=== PATIENT | female | born 1930 | race African-American/Black ===

== ENCOUNTER 2017-06-14 18:06 | Emergency (ER) | payer MEDICARE, MEDICAID ==
[2017-06-14 20:02] LABS: ABSOLUTE EOSINOPHILS # (AUTO) 0.1 10^3/uL (0.0-0.6); ABSOLUTE LYMPHOCYTES (AUTO) 1.4 10^3/uL (0.5-4.7); ABSOLUTE MONOCYTES (AUTO) 0.5 10^3/uL (0.1-1.4); ABSOLUTE NEUT (AUTO) 3.7 10^3/uL (1.7-8.2); BASOPHILS % (AUTO) 0.5 % (0-2); HEMATOCRIT 43.3 % (36.0-47.0); LYMPHOCYTES % (AUTO) 25.4 % (13-45); MEAN CORPUSCULAR HEMOGLOBIN 31.3 pg (27.0-33.4); MEAN CORPUSCULAR HGB CONC 34.6 g/dL (32.0-36.0); MEAN CORPUSCULAR VOLUME 90 fl (80-97); PLATELET COUNT 350 10^3/uL (150-450); RED BLOOD COUNT 4.79 10^6/uL (3.72-5.28); RED CELL DISTRIBUTION WIDTH 13.1 % (11.5-14.0); SEGMENTED NEUTROPHILS % (AUTO) 64.1 % (42-78); TOTAL CELLS COUNTED % (AUTO) 100 %; WHITE BLOOD COUNT 5.7 10^3/uL (4.0-10.5)
[2017-06-14] MEDS ORDERED: DOXYCYCLINE HYCLATE 100 MG TABLET PO ONE (20:25)
--- NOTE | 2017-06-14 20:27 | ER Document Report ---
ED General - General Chief Complaint: Cough Stated Complaint: COUGH Time Seen by Provider: 06/14/17 19:17 Information source: Relative Cannot obtain history due to: Dementia Notes: Patient is an 86-year-old female who presents with familial concerns about a possible left lower lobe pneumonia. Family reports over the past 1 week the patient has had extensive nasal congestion, rhinorrhea and cough. The family demanded a chest x-ray today and this was performed. It was found to note a possible left lower lobe pneumonia. The patient was started on azithromycin for the family was unconvinced that the facility was correctly evaluating the patient so they requested she be transported to the emergency department. No additional history can be obtained as the patient is nonverbal and unable to cooperate with history taking. TRAVEL OUTSIDE OF THE [place] IN LAST 30 DAYS: No - Related Data Allergies/Adverse Reactions: Sulfa (Sulfonamide Antibiotics) Allergy (Severe, Verified 04/11/16 18:16) tongue levofloxacin [From Levaquin] Allergy (Verified 04/11/16 18:16) nickel [Nickel] Allergy (Verified 04/11/16 18:16) Past Medical History - General Information source: Patient Cannot obtain history due to: Dementia - Social History Smoking Status: Never Smoker Frequency of alcohol use: None Drug Abuse: None Lives with: [facility] Family History: CAD, Malignancy - Gastric cancer--father and brother Patient has suicidal ideation: No Patient has homicidal ideation: No - Past Medical History Cardiac Medical History: Reports: Hx Hypercholesterolemia Denies: Hx Coronary Artery Disease, Hx Heart Attack - possible [place] 01/2011, Hx Hypertension Pulmonary Medical History: Denies: Hx Asthma, Hx Bronchitis, Hx COPD, Hx Pneumonia Neurological Medical History: Denies: Hx Cerebrovascular Accident, Hx Seizures Renal/ Medical History: Denies: Hx Peritoneal Dialysis Musculoskeltal Medical History: Reports Hx Arthritis Psychiatric Medical History: Reports: Hx Dementia, Hx Depression Traumatic Medical History: Reports: Hx Fractures - rods in L ankle Past Surgical History: Reports: Hx Hysterectomy, Hx Orthopedic Surgery - L knee and L ankle. Denies: Hx Pacemaker - Immunizations Hx Diphtheria, Pertussis, Tetanus Vaccination: Yes Review of Systems - Review of Systems -: Yes ROS unobtainable due to patient's medical condition Physical Exam - Vital signs Vitals: Resp Pulse Ox 15 94 06/14/17 18:35 06/14/17 18:35 Interpretation: Normal Notes: PHYSICAL EXAMINATION: GENERAL: Chronically ill in appearance, frail, in no acute distress HEAD: Atraumatic, normocephalic. EYES: sclera anicteric, conjunctiva are normal. ENT: nares patent, oropharynx clear without exudates. Moderately dry mucous membranes. NECK: Normal range of motion, supple without lymphadenopathy LUNGS: Breath sounds clear to auscultation bilaterally and equal. No wheezes rales or rhonchi. HEART: Regular rate and rhythm without murmurs ABDOMEN: Soft, G-tube in place. EXTREMITIES: Contracted in the bilateral upper and lower extremities NEUROLOGICAL: Does not follow commands. At baseline per family PSYCH: Nonverbal SKIN: Warm, Dry, normal turgor, no rashes or lesions noted. Course - Re-evaluation Re-evalutation: 06/14/17 20:25 Presentation of a chronically ill, nonverbal, nonambulatory, G-tube dependent patient who presents with concerns of a left lower lobe pneumonia. Family states there were concerned about the care of the patient was receiving at the [facility] facility and wanted her brought here for a reevaluation. The patient was apparently started on azithromycin today. This will not provide adequate coverage for a community-acquired pneumonia in the setting of a fpc. She is allergic to levofloxacin. Will start on doxycycline in place of azithromycin to provide better coverage although I do not see an acute indication for hospitalization. Patient is not significantly tachypneic, no hypoxia, and no chronic kidney disease. Awaiting basic metabolic panel results normal plan for likely discharge - Vital Signs Vital signs: Temp Pulse Resp BP Pulse Ox 98.4 F 22 H 101/69 96 06/14/17 19:03 06/14/17 18:57 06/14/17 19:01 06/14/17 19:01 - Laboratory Result Diagrams: 06/14/17 19:00 06/14/17 20:45 Laboratory results interpreted by me: 06/14/17 20:45 Sodium 135.1 L Chloride 95 L Creatinine 0.46 L Glucose 120 H - Diagnostic Test Radiology reviewed: Image reviewed, Reports reviewed Radiology results interpreted by me: 06/14/17 20:59 Chest x-ray: Small infiltrate in the left base - EKG Interpretation by Me Additional EKG results interpreted by me: 06/14/17 20:59 Sinus tachycardia. Rate 101. No ST elevations or depressions. QTC is 488. Discharge - Discharge Clinical Impression: Left lower lobe pneumonia Qualifiers: Pneumonia type: due to unspecified organism Qualified Code(s): J18.1 - Lobar pneumonia, unspecified organism Condition: Good Disposition: HOME-SNF (ED ONLY) Additional Instructions: Your family member has been diagnosed with a left lower lobe pneumonia. Please start on doxycycline as prescribed. Complete until finished. Return for any additional concerns including increased difficulty breathing, persistent vomiting, low oxygen readings, or any other symptoms that are worrisome to you. Prescriptions: Doxycycline Hyclate 100 mg PO BID #20 capsule
--- NOTE | 2017-06-14 20:37 | RADIOLOGY REPORT (SQ) ---
EXAM DESCRIPTION: CHEST SINGLE VIEW COMPLETED DATE/TIME: 06/14/2017 8:01 pm REASON FOR STUDY: sob COMPARISON: 04/11/2016 and 04/17/2011 EXAM PARAMETERS: NUMBER OF VIEWS: One view. TECHNIQUE: Single frontal radiographic view of the chest acquired. RADIATION DOSE: NA LIMITATIONS: None. FINDINGS: LUNGS AND PLEURA: No opacities, masses or pneumothorax. No pleural effusion. MEDIASTINUM AND HILAR STRUCTURES: Stable contour appearance, noting right superior mediastinal fullne ss. HEART AND VASCULAR STRUCTURES: Heart normal in size. Normal vasculature. BONES: No acute findings. HARDWARE: None in the chest. OTHER: No other significant finding. IMPRESSION: Stable radiographic appearance of the chest. Right superior mediastinal fullness is unc hanged dating back to 2010, and may represent substernal thyroid. No acute findings. TECHNICAL DOCUMENTATION: JOB ID: [id number] [employer]- All Rights Reserved
[2017-06-14 21:24] LABS: ANION GAP 11 (5-19); BLOOD UREA NITROGEN 16 mg/dL (7-20); CALCIUM 9.9 mg/dL (8.4-10.2); CARBON DIOXIDE 29 mmol/L (22-30); CHLORIDE 95 mmol/L (98-107); GLUCOSE 120 mg/dL (75-110); POTASSIUM 4.3 mmol/L (3.6-5.0); SODIUM 135.1 mmol/L (137-145)
[2017-06-15 04:42] VITALS: BP 109/61
--- NOTE | 2017-06-15 11:00 | EKG REPORT ---
SEVERITY:- ABNORMAL ECG - SINUS TACHYCARDIA LEFT AXIS DEVIATION BORDERLINE T WAVE ABNORMALITIES BORDERLINE PROLONGED QT INTERVAL : Confirmed by: Seema Castellanos MD 15-Jun-2017 10:59:22
== END 2017-06-14 23:15 ==
LOC: ER 18:06
DX: J18.1 Lobar pneumonia, unspecified organism (principal); R05 Cough; R09.81 Nasal congestion; J34.89 Other specified disorders of nose and nasal sinuses; R00.0 Tachycardia, unspecified; F03.90 Unspecified dementia, unspecified severity, without behavioral disturbance, psychotic disturbance, mood disturbance, and anxiety; Z88.2 Allergy status to sulfonamides; Z88.1 Allergy status to other antibiotic agents; Z91.048 Other nonmedicinal substance allergy status; Z93.1 Gastrostomy status
CPT/HCPCS: 93005; 99285; 36415; 85025; 80048; 71010; 93010; A9270

== ENCOUNTER 2017-08-19 13:44 | Emergency (ER) | payer MEDICARE, MEDICAID ==
--- NOTE | 2017-08-19 14:46 | ER Document Report ---
ED General - General Stated Complaint: WEAKNESS Time Seen by Provider: 08/19/17 14:10 Mode of Arrival: Medic Information source: Emergency Med Personnel Notes: 86-year-old woman with a history of Parkinson's disease, non-mobile (contracted ) bed written female brought in by [facility] for concerns of an object prolapsing out of her vaginal canal. There is no history of fever. The patient is accompanied by her daughter who reports that the patient has had a bladder prolapse since 2011. The patient's daughter reports that the patient had pneumonia on June 14 and was treated with 2 weeks worth of doxycycline as an outpatient. The patient's daughter does have concerns: Regarding the Parkinson's disease, she believes that [facility] is giving her tube feeds too quickly and she is vomiting. Patient did last vomited 3 days ago as per the daughter. The next concern of the daughters is at she has had many skin tears and "gashes " to her head and skin. Another concern is that the patient frequently is constipated and then has very large bowel movements. She states that the patient gets uncomfortable when she is constipated. TRAVEL OUTSIDE OF THE [place] IN LAST 30 DAYS: No - HPI Onset: Just prior to arrival Onset/Duration: Sudden Quality of pain: No pain Severity: None Pain Level: Denies Associated symptoms: denies: Chest pain, Shortness of breath Exacerbated by: Denies Relieved by: Denies Similar symptoms previously: Yes Recently seen / treated by doctor: Yes - Related Data Allergies/Adverse Reactions: Sulfa (Sulfonamide Antibiotics) Allergy (Severe, Verified 04/11/16 18:16) tongue levofloxacin [From Levaquin] Allergy (Verified 04/11/16 18:16) nickel [Nickel] Allergy (Verified 04/11/16 18:16) Past Medical History - General Information source: Relative - Social History Smoking Status: Never Smoker Cigarette use (# per day): No Chew tobacco use (# tins/day): No Frequency of alcohol use: None Drug Abuse: None Lives with: Family Family History: CAD, Malignancy - Gastric cancer--father and brother - Past Medical History Cardiac Medical History: Reports: Hx Hypercholesterolemia Denies: Hx Coronary Artery Disease, Hx Heart Attack - possible [place] 01/2011, Hx Hypertension Pulmonary Medical History: Denies: Hx Asthma, Hx Bronchitis, Hx COPD, Hx Pneumonia Neurological Medical History: Denies: Hx Cerebrovascular Accident, Hx Seizures Renal/ Medical History: Denies: Hx Peritoneal Dialysis Musculoskeltal Medical History: Reports Hx Arthritis Psychiatric Medical History: Reports: Hx Dementia, Hx Depression Traumatic Medical History: Reports: Hx Fractures - rods in L ankle Past Surgical History: Reports: Hx Hysterectomy, Hx Orthopedic Surgery - L knee and L ankle. Denies: Hx Pacemaker - Immunizations Hx Diphtheria, Pertussis, Tetanus Vaccination: Yes Review of Systems - Review of Systems Constitutional: denies: Chills, Fever EENT: No symptoms reported Cardiovascular: No symptoms reported Respiratory: No symptoms reported Gastrointestinal: No symptoms reported Genitourinary: See HPI Female Genitourinary: See HPI Musculoskeletal: No symptoms reported Skin: No symptoms reported Hematologic/Lymphatic: No symptoms reported Neurological/Psychological: No symptoms reported Physical Exam - Vital signs Vitals: Temp Pulse Resp BP Pulse Ox 99.3 F 95 18 151/77 H 97 08/19/17 14:17 08/19/17 14:17 08/19/17 14:17 08/19/17 14:17 08/19/17 14:17 Notes: Physical exam: The exam was performed with the nurse present as well as the daughter present. GENERAL: 86-year-old female, nonverbal (baseline mental status as per daughter) , the patient is resting comfortably and does not appear to be in any distress. Her temperature is 99.3 rectally. HEAD:Normocephalic. The patient's daughter states that the patient had a laceration to the top of her forehead 3 days ago: There is a very slight scratch approximately 1 mm just superior to the forehead. There is no swelling or erythema or evidence of skull damage. EYES: sclera anicteric, conjunctiva are normal. ENT: Nares patent, oropharynx clear without exudates. Moist mucous membranes. NECK: Patient is somewhat contracted, her neck is supple and there is no JVD. LUNGS: Breath sounds clear to auscultation bilaterally and equal. No wheezes rales or rhonchi. HEART: Regular rate and rhythm without murmurs, rubs or gallops. ABDOMEN: Soft, normoactive bowel sounds. No tenderness to palpation. No guarding, no rebound. No masses appreciated. She does have a G-tube in place and the skin looks quite good. Vaginal: Patient does have slight prolapse of the bladder. Tissue is pink it is frequently mobile back in. There is no masses in the vaginal canal. Rectal exam: Soft stool, no masses, no evidence of impacted stool. Stool is brown and it sent for study. EXTREMITIES: Patient is contracted. She does have evidence of right ankle surgery. NEUROLOGICAL: Nonverbal by history, contracted, at baseline as per daughter. SKIN: Warm, Dry, normal turgor, her skin looks quite good. She has very mild old abrasion to the left forearm without any evidence of cellulitis. There is no skin tears. The patient was turned and there is no decubiti. There is no evidence of fungal rashes. Course - Vital Signs Vital signs: Temp Pulse Resp BP Pulse Ox 97.6 F 91 24 H 128/69 H 97 08/19/17 21:52 08/19/17 21:52 08/19/17 21:52 08/19/17 21:52 08/19/17 21:52 - Laboratory Result Diagrams: 08/19/17 15:48 08/19/17 15:48 Laboratory results interpreted by me: 08/19/17 08/19/17 15:48 17:18 Creatinine 0.45 L Urine Ascorbic Acid 40 H - Diagnostic Test Radiology reviewed: Image reviewed, Reports reviewed - Obstructive series showed no evidence of obstruction, chest x-ray clear Discharge - Discharge Clinical Impression: Prolapsed bladder Condition: Stable Disposition: HOME, SELF-CARE Additional Instructions: As we discussed, the labs look quite good: White count was normal, the electrolytes and kidney function tests look quite good. The urine analysis was normal. Chest x-ray was clear and the x-rays of the abdomen showed no significant constipation. On exam, there was no evidence of impacted stool in the rectum. In the vaginal exam did show a prolapsed bladder but the tissue looks good and reducible so there is no significant intervention at this point. The plan would be to continue the medicines. Be vigilant regarding given the G-tube feedings (not too quickly because you could get vomiting if this happens). Also to be vigilant regarding bowel movements and constipation. Referrals: BEE FRANCES DO [Primary Care Provider] - Follow up as needed
[2017-08-19 15:56] LABS: ABSOLUTE LYMPHOCYTES (AUTO) 1.6 10^3/uL (0.5-4.7); ABSOLUTE MONOCYTES (AUTO) 0.4 10^3/uL (0.1-1.4); ABSOLUTE NEUT (AUTO) 2.4 10^3/uL (1.7-8.2); BASOPHILS % (AUTO) 0.5 % (0-2); EOSINOPHILS % (AUTO) 1.1 % (0-6); HEMATOCRIT 41.5 % (36.0-47.0); HEMOGLOBIN 14.8 g/dL (12.0-15.5); LYMPHOCYTES % (AUTO) 35.7 % (13-45); MEAN CORPUSCULAR HEMOGLOBIN 32.1 pg (27.0-33.4); MEAN CORPUSCULAR HGB CONC 35.6 g/dL (32.0-36.0); MEAN CORPUSCULAR VOLUME 90 fl (80-97); MONOCYTES % (AUTO) 9.3 % (3-13); PLATELET COUNT 205 10^3/uL (150-450); RED CELL DISTRIBUTION WIDTH 13.5 % (11.5-14.0); SEGMENTED NEUTROPHILS % (AUTO) 53.4 % (42-78); TOTAL CELLS COUNTED % (AUTO) 100 %; WHITE BLOOD COUNT 4.6 10^3/uL (4.0-10.5)
--- NOTE | 2017-08-19 16:03 | RADIOLOGY REPORT (SQ) ---
EXAM DESCRIPTION: ACUTE ABDOMEN SERIES COMPLETED DATE/TIME: 08/19/2017 3:54 pm REASON FOR STUDY: prolapse bladder COMPARISON: None. NUMBER OF VIEWS: Three views. TECHNIQUE: Frontal chest, supine abdomen and decubitus abdomen radiographic images acquired. LIMITATIONS: None. FINDINGS: CHEST: Lungs clear of infiltrates. FREE AIR: None. No abnormal gas collections. BOWEL GAS PATTERN: Nonobstructive pattern. No dilated loops or air fluid levels. CALCIFICATIONS: No suspicious calcifications. HARDWARE: A gastrostomy tube appears to be placed in the stomach. No balloon is seen inflated. SOFT TISSUES: No gross mass or suggestion of organomegaly. BONES: No acute fracture. No worrisome bone lesions. OTHER: No other significant finding. IMPRESSION: Gastrostomy tube as described. TECHNICAL DOCUMENTATION: JOB ID: [id number] [email or web address]- All Rights Reserved Reading location - IP/workstation name: [email or web address]
[2017-08-19 16:18] LABS: ANION GAP 9 (5-19); BLOOD UREA NITROGEN 15 mg/dL (7-20); CALCIUM 9.8 mg/dL (8.4-10.2); CARBON DIOXIDE 29 mmol/L (22-30); CHLORIDE 102 mmol/L (98-107); GLUCOSE 109 mg/dL (75-110); POTASSIUM 4.1 mmol/L (3.6-5.0)
[2017-08-19 17:34] LABS: APPEARANCE,URINE CLEAR; BILIRUBIN,URINE NEGATIVE (NEGATIVE); COLOR,URINE YELLOW; GLUCOSE, URINE NEGATIVE (NEGATIVE); KETONES,URINE NEGATIVE (NEGATIVE); LEUKOCYTE ESTERASE,URINE NEGATIVE (NEGATIVE); NITRITE,URINE NEGATIVE (NEGATIVE); PROTEIN,URINE NEGATIVE (NEGATIVE); UROBILINOGEN,URINE NEGATIVE mg/dL (<2.0)
[2017-08-19 21:55] VITALS: BP 128/69
== END 2017-08-19 22:00 | disposition home or self-care (01) ==
LOC: ER 13:44
DX: N81.10 Cystocele, unspecified (principal); R53.1 Weakness; G20 Parkinson's disease; E78.00 Pure hypercholesterolemia, unspecified; Z74.01 Bed confinement status; Z88.2 Allergy status to sulfonamides; Z90.710 Acquired absence of both cervix and uterus; Z93.1 Gastrostomy status
CPT/HCPCS: 36415; 51701; 74022; 80048; 81001; 82272; 85025; 99285

== ENCOUNTER 2017-11-03 16:57 | Emergency (ER) | payer MEDICARE, MEDICAID ==
--- NOTE | 2017-11-03 19:21 | ER Document Report ---
ED General - General Chief Complaint: Obstructed G-Tube Stated Complaint: DISLODGED TUBE Time Seen by Provider: 11/03/17 18:30 Cannot obtain history due to: Dementia Notes: Patient is an 86 year old nonverbal patient with a history of dementia who presents with concerns of increased residual feeds from her G-tube for the past several weeks. Patient is not able to provide any meaningful history. This is the only history provided by the family at the bedside. They also note that there worried that her left ankle looks swollen and seems to have pain when they touch it. Patient is nonambulatory at baseline. TRAVEL OUTSIDE OF THE [place] IN LAST 30 DAYS: No - Related Data Allergies/Adverse Reactions: Sulfa (Sulfonamide Antibiotics) Allergy (Severe, Verified 04/11/16 18:16) tongue levofloxacin [From Levaquin] Allergy (Verified 04/11/16 18:16) nickel [Nickel] Allergy (Verified 04/11/16 18:16) Past Medical History - General Information source: Relative Cannot obtain history due to: Dementia - Social History Smoking Status: Never Smoker Frequency of alcohol use: None Drug Abuse: None Lives with: [facility] Family History: CAD, Malignancy - Gastric cancer--father and brother Patient has suicidal ideation: No Patient has homicidal ideation: No - Past Medical History Cardiac Medical History: Reports: Hx Hypercholesterolemia Denies: Hx Coronary Artery Disease, Hx Heart Attack - possible [place] 01/2011, Hx Hypertension Pulmonary Medical History: Denies: Hx Asthma, Hx Bronchitis, Hx COPD, Hx Pneumonia Neurological Medical History: Denies: Hx Cerebrovascular Accident, Hx Seizures Renal/ Medical History: Denies: Hx Peritoneal Dialysis Musculoskeltal Medical History: Reports Hx Arthritis Psychiatric Medical History: Reports: Hx Dementia, Hx Depression Traumatic Medical History: Reports: Hx Fractures - rods in L ankle Past Surgical History: Reports: Hx Hysterectomy, Hx Orthopedic Surgery - L knee and L ankle. Denies: Hx Pacemaker - Immunizations Hx Diphtheria, Pertussis, Tetanus Vaccination: Yes Review of Systems - Review of Systems -: Yes ROS unobtainable due to patient's medical condition Physical Exam - Vital signs Vitals: Temp Pulse Resp BP Pulse Ox 98.3 F 89 16 144/71 H 96 11/03/17 18:15 11/03/17 18:15 11/03/17 18:15 11/03/17 18:15 11/03/17 18:15 Interpretation: Hypertensive Notes: PHYSICAL EXAMINATION: GENERAL: Contracted, nonverbal HEAD: Atraumatic, normocephalic. EYES: Pupils equal round and reactive to light, sclera anicteric, conjunctiva are normal. ENT: nares patent, oropharynx clear without exudates. Moderately dry mucous membranes. NECK: supple without lymphadenopathy LUNGS: Breath sounds clear to auscultation bilaterally and equal. No wheezes rales or rhonchi. HEART: Regular rate and rhythm without murmurs ABDOMEN: Soft, G-tube in place without any surrounding erythema or irritation. No abdominal distention. No apparent abdominal discomfort. EXTREMITIES: Contracted in all 4 extremities. No visible trauma or swelling to the left ankle NEUROLOGICAL: nonverbal, does not follow commands which is apparently baseline PSYCH: Profound dementia with a nonverbal status SKIN: Warm, Dry, normal turgor, no rashes or lesions noted. Course - Re-evaluation Re-evalutation: 11/03/17 19:19 Patient presents with concerns of increased residuals from her G-tube. Otherwise she is at her baseline which is effectively nonverbal. No additional concerns or complaints. The G-tube is in the appropriate position, no evidence of surrounding infection or swelling. We have irrigated the G-tube which does flow without difficulty. No indication replacement. I have instructed the family to follow-up with the GI physician who placed the G-tube for further evaluation if there are any additional concerns. - Vital Signs Vital signs: Temp Pulse Resp BP Pulse Ox 98.3 F 74 16 141/72 H 96 11/03/17 22:58 11/03/17 22:30 11/03/17 22:58 11/03/17 22:30 11/03/17 22:58 - Diagnostic Test Radiology reviewed: Reports reviewed Discharge - Discharge Clinical Impression: Gastrostomy tube obstruction Left ankle pain Qualifiers: Chronicity: acute Qualified Code(s): M25.572 - Pain in left ankle and joints of left foot Condition: Good Disposition: HOME, SELF-CARE Additional Instructions: Please return for any additional concerns regarding the G-tube he may have. She should follow-up with the GI doctor who originally placed the GI tube if there are any persistent concerns regarding the G-tube dysfunction. Please keep the HOB elevated during feeds as this is likely contributing to the increased residuals. Referrals: BEE FRANCES, DO [Primary Care Provider] - Follow up as needed
--- NOTE | 2017-11-03 21:41 | RADIOLOGY REPORT (SQ) ---
EXAM DESCRIPTION: ANKLE LEFT COMPLETE COMPLETED DATE/TIME: 11/03/2017 9:09 pm REASON FOR STUDY: pain COMPARISON: None. NUMBER OF VIEWS: Two views. TECHNIQUE: AP and lateral radiographic images acquired of the left ankle. LIMITATIONS: None. FINDINGS: MINERALIZATION: Osteopenia. BONES: No acute fracture or dislocation. Medial malleolar fixation screws appear intact. JOINTS: No effusions. SOFT TISSUES: No significant soft tissue swelling. No foreign body. OTHER: No other significant finding. IMPRESSION: No fracture identified. TECHNICAL DOCUMENTATION: JOB ID: [id number] [employer]- All Rights Reserved Reading location - IP/workstation name: [employer] [email or web address]
[2017-11-03 23:00] VITALS: BP 141/72
== END 2017-11-03 23:06 | disposition home or self-care (01) ==
LOC: ER 16:57
DX: K94.29 Other complications of gastrostomy (principal); Y83.8 Other surgical procedures as the cause of abnormal reaction of the patient, or of later complication, without mention of misadventure at the time of the procedure; Y73.8 Miscellaneous gastroenterology and urology devices associated with adverse incidents, not elsewhere classified; M25.572 Pain in left ankle and joints of left foot; F03.90 Unspecified dementia, unspecified severity, without behavioral disturbance, psychotic disturbance, mood disturbance, and anxiety; Z88.2 Allergy status to sulfonamides; Z88.1 Allergy status to other antibiotic agents
CPT/HCPCS: 99283

== ENCOUNTER → 2017-12-04 | Outpatient (CLI) | payer MEDICARE, MEDICAID | LOC: OD 17:27 | PROVIDERS: ATTEND Family Medicine | DX: B37.9 Candidiasis, unspecified (principal) | CPT/HCPCS: 87070; 87077; 87205 ==

== ENCOUNTER 2018-06-24 14:12 | Inpatient (IN) | payer MEDICARE, MEDICAID ==
--- NOTE | 2018-06-24 15:14 | ER Document Report ---
ED General - General Chief Complaint: Skin Problem Stated Complaint: RASH Time Seen by Provider: 06/24/18 15:06 Notes: Patient resides in an almost vegetative state at [facility]. One of her daughters who is here with her today bathes the patient every day. Patient has contractures of all of her extremities and is unable to respond, answer questions, follow commands, or any activity but lay on the bed. The daughter noticed the rash on the patient's legs yesterday. She is concerned about some red splotches on the inner aspects of both lower extremities. Additionally, patient has a feeding G-tube which has read rash around the periphery of the stoma. To me, it looks like some irritation from gastric seepage perhaps with some superimposed yeast infection. And, she has some rash under her left breast. Similar reddish splotchy rash. Two daughters are here and neither of them knows of any fever. No other symptoms. They expressed concerns about a possible UTI, dehydration, and other conditions and wanted the patient checked out fully. TRAVEL OUTSIDE OF THE [place] IN LAST 30 DAYS: No - Related Data Allergies/Adverse Reactions: Sulfa (Sulfonamide Antibiotics) Allergy (Severe, Verified 04/11/16 18:16) tongue levofloxacin [From Levaquin] Allergy (Verified 04/11/16 18:16) nickel [Nickel] Allergy (Verified 04/11/16 18:16) Past Medical History - Social History Smoking Status: Unknown if Ever Smoked Family History: Reviewed & Not Pertinent, CAD, Malignancy - Gastric cancer--father and brother Patient has suicidal ideation: No Patient has homicidal ideation: No - Past Medical History Cardiac Medical History: Reports: Hx Hypercholesterolemia Musculoskeletal Medical History: Reports Hx Arthritis Psychiatric Medical History: Reports: Hx Dementia, Hx Depression Traumatic Medical History: Reports: Hx Fractures - rods in L ankle Past Surgical History: Reports: Hx Hysterectomy, Hx Orthopedic Surgery - L knee and L ankle - Immunizations Hx Diphtheria, Pertussis, Tetanus Vaccination: Yes Review of Systems - Review of Systems Notes: Review of systems from patient's daughters. REVIEW OF SYSTEMS: CONSTITUTIONAL : Denies fever. EENT: Denies eye, ear, nose or mouth or throat pain or other symptoms. CARDIOVASCULAR: Denies chest pain. RESPIRATORY: Denies cough, chest congestion, or shortness of breath. GASTROINTESTINAL: Denies abdominal pain or nausea, vomiting, or diarrhea. Has a feeding G-tube. GENITOURINARY: Denies difficulty or painful urinating, urinary frequency, blood in urine. MUSCULOSKELETAL: Denies back or neck pain. Denies joint pain or swelling. Contractures of all 4 extremities. SKIN: Assorted red rash locations including under the left breast, around the feeding G-tube, and on the inner aspects of both lower extremities. NEUROLOGICAL: Denies LOC patient is unchanged from her normal neurologic exam. She does not answer questions or speak. She does not really indicate any understanding of what is being said or done around her or to her. ALL OTHER SYSTEMS REVIEWED AND NEGATIVE. Physical Exam - Vital signs Vitals: Temp Pulse Resp BP Pulse Ox 97.4 F 64 16 112/69 96 06/24/18 14:22 06/24/18 14:22 06/24/18 14:22 06/24/18 14:22 06/24/18 14:22 Interpretation: Normal Notes: PHYSICAL EXAMINATION: GENERAL: Does not appear ill. She has a rhythmic light moaning sound that goes on continuously. Does not appear to be in any acute distress. Vital signs are all normal. HEAD: Atraumatic, normocephalic. 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 ENT: oropharynx clear without exudates. Moist mucous membranes. NECK: Normal range of motion, supple. LUNGS: Breath sounds clear and equal bilaterally. Patient has a couple of small superficial erythematous spots under the left breast. HEART: Regular rate and rhythm without murmurs. ABDOMEN: Soft, nontender. No guarding or rebound. No masses. Feeding gastric tube in left upper quadrant with some slight erythema of the skin adjacent to the tube. Does not appear to be an infectious rash. May be irritation from the leakage of gastric contents combined with overlying fungal infection. BACK: No tenderness throughout entire back. EXTREMITIES: On the inner aspects of the shins of both legs there are scattered erythematous nonspecific rash noted. Nonspecific and does not appear to be bacterial infectious origin. NEUROLOgic: Patient basically exists in a vegetative state with no interactions with anyone. She cannot communicate in any way. Does not speak does not follow commands. Does not answer any questions. Seemingly does not know what is happening around her. PSYCH: Unable to assess. SKIN: Warm, dry Course - Re-evaluation Re-evalutation: 06/24/18 18:13 Urinalysis looks like a pretty serious infection. Looks like straight pus coming out from the catheter. - Vital Signs Vital signs: Temp Pulse Resp BP Pulse Ox 97.4 F 64 16 112/69 96 06/24/18 14:22 06/24/18 14:22 06/24/18 14:22 06/24/18 14:22 06/24/18 14:22 - Laboratory Result Diagrams: 06/24/18 16:20 06/24/18 16:20 Laboratory results interpreted by me: 06/24/18 06/24/18 16:20 17:15 Sodium 136.4 L Chloride 97 L Carbon Dioxide 31 H Creatinine 0.45 L Urine Protein 30 H Urine Blood SMALL H Urine Urobilinogen 2.0 H Ur Leukocyte Esterase LARGE H Urine Ascorbic Acid 40 H Discharge - Discharge Clinical Impression: UTI (urinary tract infection), Hyponatremia Condition: Stable Disposition: ADMITTED OBSERVATION Admitting Provider: Hospitalist Unit Admitted: Medical Floor
--- NOTE | 2018-06-24 15:43 | RADIOLOGY REPORT (SQ) ---
EXAM DESCRIPTION: CHEST SINGLE VIEW COMPLETED DATE/TIME: 06/24/2018 3:30 pm REASON FOR STUDY: Rash, poorly responsive COMPARISON: 04/11/2016 EXAM PARAMETERS: NUMBER OF VIEWS: One view. TECHNIQUE: Single frontal radiographic view of the chest acquired. RADIATION DOSE: NA LIMITATIONS: Patient rotation. FINDINGS: LUNGS AND PLEURA: Low lung volumes. No focal airspace disease, pleural effusion or pneumo thorax. MEDIASTINUM AND HILAR STRUCTURES: Unchanged widening of the right paratracheal stripe, likely vascula r. HEART AND VASCULAR STRUCTURES: Normal heart size. Unfolded thoracic aorta. BONES: Decreased mineralization. No acute findings. HARDWARE: None in the chest. OTHER: No other significant finding. IMPRESSION: No evidence of acute cardiopulmonary process. TECHNICAL DOCUMENTATION: JOB ID: [id number] [employer]- All Rights Reserved Reading location - IP/workstation name: [facility]
[2018-06-24 16:36] LABS: ABSOLUTE EOSINOPHILS # (AUTO) 0.1 10^3/uL (0.0-0.6); ABSOLUTE LYMPHOCYTES (AUTO) 1.4 10^3/uL (0.5-4.7); ABSOLUTE MONOCYTES (AUTO) 0.5 10^3/uL (0.1-1.4); ABSOLUTE NEUT (AUTO) 2.4 10^3/uL (1.7-8.2); BASOPHILS % (AUTO) 0.5 % (0-2); EOSINOPHILS % (AUTO) 1.6 % (0-6); HEMATOCRIT 42.4 % (36.0-47.0); HEMOGLOBIN 14.8 g/dL (12.0-15.5); LYMPHOCYTES % (AUTO) 32.8 % (13-45); MEAN CORPUSCULAR HEMOGLOBIN 31.9 pg (27.0-33.4); MEAN CORPUSCULAR HGB CONC 34.9 g/dL (32.0-36.0); MEAN CORPUSCULAR VOLUME 92 fl (80-97); MONOCYTES % (AUTO) 10.6 % (3-13); PLATELET COUNT 222 10^3/uL (150-450); RED BLOOD COUNT 4.64 10^6/uL (3.72-5.28); RED CELL DISTRIBUTION WIDTH 13.2 % (11.5-14.0); SEGMENTED NEUTROPHILS % (AUTO) 54.5 % (42-78); TOTAL CELLS COUNTED % (AUTO) 100 %; WHITE BLOOD COUNT 4.4 10^3/uL (4.0-10.5)
[2018-06-24 17:23] LABS: ALANINE AMINOTRANSFERASE 15 U/L (9-52); ALBUMIN 4.2 g/dL (3.5-5.0); ALKALINE PHOSPHATASE 75 U/L (38-126); ANION GAP 8 (5-19); ASPARTATE AMINO TRANSFERASE 31 U/L (14-36); BILIRUBIN,DIRECT 0.2 mg/dL (0.0-0.4); BILIRUBIN,TOTAL 0.7 mg/dL (0.2-1.3); BLOOD UREA NITROGEN 18 mg/dL (7-20); CALCIUM 9.3 mg/dL (8.4-10.2); CARBON DIOXIDE 31 mmol/L (22-30); CHLORIDE 97 mmol/L (98-107); GLUCOSE 106 mg/dL (75-110); POTASSIUM 4.1 mmol/L (3.6-5.0); SODIUM 136.4 mmol/L (137-145); TOTAL PROTEIN 7.7 g/dL (6.3-8.2)
[2018-06-24 17:37] LABS: APPEARANCE,URINE TURBID; BILIRUBIN,URINE NEGATIVE (NEGATIVE); COLOR,URINE YELLOW; GLUCOSE, URINE NEGATIVE (NEGATIVE); KETONES,URINE NEGATIVE (NEGATIVE); LEUKOCYTE ESTERASE,URINE LARGE (NEGATIVE); NITRITE,URINE NEGATIVE (NEGATIVE); PROTEIN,URINE 30 mg/dL (NEGATIVE); URINE SPECIFIC GRAVITY 1.013
[2018-06-24] MEDS ORDERED: CEFTRIAXONE INJ 1000 MG VIAL IV ONE (17:53)
[2018-06-24] MEDS ORDERED: IPRATROPIUM/ALBUTEROL 0.5-2.5 MG/3 ML AMPUL NEB PRN (19:35)
[2018-06-24] MEDS ORDERED: ACETAMINOPHEN 650 MG PEG PRN (19:35)
[2018-06-24] MEDS ORDERED: MAGNESIUM HYDROXIDE SUSP 30 ML UDCUP PEG PRN (19:35)
[2018-06-24] MEDS ORDERED: ALBUTEROL SULFATE NEB PRN (19:35)
[2018-06-24] MEDS ORDERED: [UNRECOGNIZED DRUG - OTHER] NEB PRN (19:35)
[2018-06-24] MEDS ORDERED: ACETAMINOPHEN SOLN 325 MG/10.15 ML UDCUP PEG PRN (19:51)
[2018-06-24] MEDS ORDERED: (PENDING PHARMACY ID) (Latanoprost/Pf [Latanoprost 0.005% Eye Drop] 1 DROP) OD SCH (22:00)
[2018-06-24] MEDS: LATANOPROST 0.005% OPH SOLN 2.5 ML OD SCH (22:12)
[2018-06-24] MEDS: TOBRAMYCIN SULFATE/DEXAMETH OPH OINTMENT 3.5 GM OU SCH (22:13)
[2018-06-24] MEDS: TETRAHYDROZOLINE HCL 0.05% OPH SOLN 15 ML OU SCH (22:13)
[2018-06-25] MEDS: TETRAHYDROZOLINE HCL 0.05% OPH SOLN 15 ML OU SCH ×3 (06:23→22:09)
--- NOTE | 2018-06-25 06:23 | PDOC H&P ---
History of Present Illness Admission Date/PCP: 06/24/18 18:23 BEE FRANCES DO Patient complains of: Patient is in a vegetative state and unable to complain. Family noted change in status with a rash History of Present Illness: RADHA MENA is a 87 year old female with end-stage Parkinson's disease who is bedbound in a correction. She is nonverbal. The family noticed a rash. She has had this before when infected. She was brought to the emergency department. Catheter was placed and she was found to have pyuria. Past Medical History Cardiac Medical History: Reports: Hyperlipidema Denies: Coronary Artery Disease, Myocardial Infarction - possible [place] 01/2011, Hypertension Pulmonary Medical History: Denies: Asthma, Bronchitis, Chronic Obstructive Pulmonary Disease (COPD), Pneumonia Neurological Medical History: Reports: Other - End-stage Parkinson's Denies: Seizures Musculoskeltal Medical History: Reports: Arthritis Psychiatric Medical History: Reports: Dementia, Depression Hematology: Denies: Anemia Past Surgical History Past Surgical History: Reports: Hysterectomy, Orthopedic Surgery - L knee and L ankle Denies: Pacemaker Social History Information Source: [facility] Records Lives with: [facility] Smoking Status: Unknown if Ever Smoked Frequency of Alcohol Use: None Hx Recreational Drug Use: No Drugs: None Hx Prescription Drug Abuse: No - Advance Directive Resuscitation Status: Do Not Resuscitate Surrogate healthcare decision maker:: Patient's daughter is the documented healthcare proxy Family History Family History: Reviewed & Not Pertinent, CAD, Malignancy - Gastric cancer--father and brother Parental Family History Reviewed: Yes Children Family History Reviewed: Yes Sibling(s) Family History Reviewed.: Yes Medication/Allergy Home Medications: Acetaminophen [Pediacare Fever [employer]] 650 mg PEG Q6HP PRN 06/24/18 Albuterol Sulfate [Proventil 0.5% Neb 2.5 mg/0.5 ml Vial.neb] 0.5 ml NEB Q6HP PRN 06/24/18 Ascorbic Acid [Vitamin C] 1,000 mg PEG DAILY 06/24/18 Cholecalciferol (Vitamin D3) [Vitamin D3 1000 Unit Tablet] 1,000 unit PEG DAILY 06/24/18 Cranberry Extract [Cranberry 250 mg Tablet] 250 mg PEG BID 06/24/18 Cyanocobalamin (Vitamin B-12) [Vitamin B-12 1000 mcg Tablet] 1,000 mcg PEG DAILY 06/24/18 Docusate Sodium [Colace Udc 100 mg/10 ml Oral Soln] 100 mg PEG DAILY 06/24/18 Eyelid Cleanser Combination 3 [Ocusoft Lid Scrub Plus] 1 applic OU QAM 06/24/18 Famotidine [Pepcid] 20 mg PEG DAILY 06/24/18 Ipratropium/Albuterol Sulfate [Duoneb 3 ml Ampul] 3 ml NEB Q8HP PRN 06/24/18 Latanoprost/Pf [Latanoprost 0.005% Eye Drop] 1 drop OD QHS 06/24/18 Magnesium Hydroxide [Milk of Magnesia 30 ml Udcup] 30 ml PEG DAILYP PRN 06/24/18 Magnesium Oxide [Magox] 400 mg PEG BID 06/24/18 Multivitamin [My Favorite Multiple] 30 ml PEG QAM 06/24/18 Pot Chl 10% Danielle 20meq/15ml 10 ml PEG DAILY 06/24/18 Psyllium Husk (with Sugar) [Metamucil Packet] 3.4 gm PEG BID 06/24/18 Tetrahydrozoline HCl [Visine] 1 drop OU Q8 06/24/18 Tobramycin Sulfate/Dexameth [Tobradex Oph Ointment 3.5 gm] 1 applic OU QHS 06/24/18 Allergies/Adverse Reactions: Sulfa (Sulfonamide Antibiotics) Allergy (Severe, Verified 04/11/16 18:16) tongue levofloxacin [From Levaquin] Allergy (Verified 04/11/16 18:16) nickel [Nickel] Allergy (Verified 04/11/16 18:16) Review of Systems ROS unobtainable: Due to mental status Physical Exam Vital Signs: Temp Pulse Resp BP Pulse Ox 97.7 F 64 16 132/76 H 98 06/25/18 05:16 06/24/18 14:22 06/24/18 23:01 06/25/18 02:01 06/25/18 02:01 Intake & Output 06/23/18 06/24/18 06/25/18 06:59 06:59 06:59 Weight 64 kg General appearance: PRESENT: other - Moderately distressed. Unable to participate due to end-stage Parkinson's with dementia Head exam: PRESENT: normocephalic Eye exam: PRESENT: other - Unable to assess Ear exam: PRESENT: normal external ear exam Mouth exam: PRESENT: other - Unable to assess Teeth exam: PRESENT: other - Unable to assess Throat exam: PRESENT: other - Unable to assess Neck exam: ABSENT: lymphadenopathy Respiratory exam: PRESENT: decreased breath sounds, other - Limited inspiratory phase. ABSENT: rales, rhonchi, wheezes Cardiovascular exam: PRESENT: RRR, +S1, +S2 GI/Abdominal exam: PRESENT: normal bowel sounds, soft, other - PEG tube in place. ABSENT: tenderness Rectal exam: PRESENT: deferred Gentrourinary exam: PRESENT: indwelling catheter Extremities exam: PRESENT: other - Markedly contracted Musculoskeletal exam: PRESENT: other - Loss of muscle mass Neurological exam: PRESENT: other - Obtunded Psychiatric exam: PRESENT: other - Obtunded Focused psych exam: PRESENT: other - Obtunded Skin exam: PRESENT: rash - Around PEG tube site Results Laboratory Results: 06/24/18 16:20 06/24/18 16:20 06/24/18 06/24/18 06/24/18 16:20 16:20 17:15 WBC 4.4 RBC 4.64 Hgb 14.8 Hct 42.4 MCV 92 MCH 31.9 MCHC 34.9 RDW 13.2 Plt Count 222 Seg Neutrophils % 54.5 Lymphocytes % 32.8 Monocytes % 10.6 Eosinophils % 1.6 Basophils % 0.5 Absolute Neutrophils 2.4 Absolute Lymphocytes 1.4 Absolute Monocytes 0.5 Absolute Eosinophils 0.1 Absolute Basophils 0.0 Sodium 136.4 L Potassium 4.1 Chloride 97 L Carbon Dioxide 31 H Anion Gap 8 BUN 18 Creatinine 0.45 L Est GFR ( Amer) > 60 Est GFR (Non-Af Amer) > 60 Glucose 106 Calcium 9.3 Total Bilirubin 0.7 AST 31 ALT 15 Alkaline Phosphatase 75 Total Protein 7.7 Albumin 4.2 Urine Color YELLOW Urine Appearance TURBID Urine pH 7.0 Ur Specific [place] 1.013 Urine Protein 30 H Urine Glucose (UA) NEGATIVE Urine Ketones NEGATIVE Urine Blood SMALL H Urine Nitrite NEGATIVE Ur Leukocyte Esterase LARGE H Urine WBC (Auto) >182 Urine RBC (Auto) 32 Impressions: Chest X-Ray 06/24/18 15:08 IMPRESSION: No evidence of acute cardiopulmonary process. Assessment & Plan - Diagnosis (1) UTI (urinary tract infection) Qualifiers: Urinary tract infection type: acute cystitis Hematuria presence: without hematuria Qualified Code(s): N30.00 - Acute cystitis without hematuria Is this a current diagnosis for this admission?: Yes Plan: Upon catheter insertion there was lucía pyuria. It is unknown if this is pyelonephritis or cystitis. Urine cultures are pending. Multiple antibiotic allergies so the patient was started on ceftriaxone. Culture is pending. Alter antibiotic therapy as clinically indicated by culture results. (2) Parkinson's disease dementia Qualifiers: Dementia behavioral disturbance: without behavioral disturbance Qualified Code(s): G20 - Parkinson's disease; F02.80 - Dementia in other diseases classified elsewhere without behavioral disturbance Is this a current diagnosis for this admission?: Yes Plan: Patient has end-stage Parkinson's disease. She is markedly contracted. She is nonverbal. She is bedbound. She has a PEG tube for nutrition. Continue previous medication regimen. - Time Time Spent: 50 to 70 Minutes Medications reviewed and adjusted accordingly: Yes Anticipated discharge: SNF Within: within 72 hours
[2018-06-25] MEDS ORDERED: ALBUTEROL SULFATE 0.083% NEB 2.5 MG/3 ML AMPUL NEB PRN (07:11)
[2018-06-25] MEDS ORDERED: MULTIVITAMIN PEG SCH (08:00)
[2018-06-25] MEDS ORDERED: EYELID CLEANSER COMBINATION OU SCH (08:00)
[2018-06-25 09:12] LABS: ABSOLUTE EOSINOPHILS # (AUTO) 0.1 10^3/uL (0.0-0.6); ABSOLUTE LYMPHOCYTES (AUTO) 1.5 10^3/uL (0.5-4.7); ABSOLUTE MONOCYTES (AUTO) 0.5 10^3/uL (0.1-1.4); ABSOLUTE NEUT (AUTO) 3.6 10^3/uL (1.7-8.2); BASOPHILS % (AUTO) 0.2 % (0-2); EOSINOPHILS % (AUTO) 0.9 % (0-6); HEMATOCRIT 41.2 % (36.0-47.0); HEMOGLOBIN 14.5 g/dL (12.0-15.5); LYMPHOCYTES % (AUTO) 26.9 % (13-45); MEAN CORPUSCULAR HEMOGLOBIN 32.1 pg (27.0-33.4); MEAN CORPUSCULAR HGB CONC 35.2 g/dL (32.0-36.0); MEAN CORPUSCULAR VOLUME 91 fl (80-97); MONOCYTES % (AUTO) 8.9 % (3-13); PLATELET COUNT 212 10^3/uL (150-450); RED BLOOD COUNT 4.53 10^6/uL (3.72-5.28); RED CELL DISTRIBUTION WIDTH 13.3 % (11.5-14.0); SEGMENTED NEUTROPHILS % (AUTO) 63.1 % (42-78); TOTAL CELLS COUNTED % (AUTO) 100 %; WHITE BLOOD COUNT 5.7 10^3/uL (4.0-10.5)
[2018-06-25 09:32] LABS: ANION GAP 7 (5-19); BLOOD UREA NITROGEN 16 mg/dL (7-20); CALCIUM 9.5 mg/dL (8.4-10.2); CARBON DIOXIDE 32 mmol/L (22-30); CHLORIDE 98 mmol/L (98-107); GLUCOSE 103 mg/dL (75-110); SODIUM 137.3 mmol/L (137-145)
[2018-06-25] MEDS: MULTIVITAMIN ORAL LIQUID 60 ML PO SCH (09:33)
[2018-06-25] MEDS: DOCUSATE SODIUM 100 MG/10 ML UDC PEG SCH (09:33)
[2018-06-25] MEDS: POTASSIUM CHLORIDE 20 MEQ/15 ML UDCUP PO SCH (09:33)
[2018-06-25] MEDS: CLOTRIMAZOLE/BETAMETHASONE DIP CREAM 15 GM TOP SCH ×2 (09:34→18:16)
[2018-06-25] MEDS: ENOXAPARIN SODIUM INJ 40 MG/0.4 ML DISP.SYRIN SUBCUT SCH (09:35)
[2018-06-25] MEDS: ASCORBIC ACID 500 MG TABLET PEG SCH (09:38)
[2018-06-25] MEDS: CHOLECALCIFEROL (D3) 1,000 UNIT TABLET PEG SCH (09:38)
[2018-06-25 09:39] LABS: PREALBUMIN 21.8 mg/dL (17.6-36.0)
[2018-06-25] MEDS: CYANOCOBALAMIN (VITAMIN B-12) 1,000 MCG TABLET PEG SCH (09:39)
[2018-06-25] MEDS: MAGNESIUM OXIDE 400 MG TABLET PEG SCH ×2 (09:39→18:16)
[2018-06-25] MEDS: FAMOTIDINE 20 MG TABLET PEG SCH (09:39)
[2018-06-25] MEDS ORDERED: POTASSIUM CHLORIDE PEG SCH (10:00)
[2018-06-25] MEDS ORDERED: (PENDING PHARMACY ID) (Psyllium Husk (With Sugar) [Metamucil Packet] 3.4 GM) PEG SCH ×2 (10:00)
[2018-06-25] MEDS ORDERED: CRANBERRY EXTRACT 250 MG PEG SCH (10:00)
[2018-06-25] MEDS ORDERED: CEFTRIAXONE 1 GM/D5W RTU 1 GM/50 ML RTUPB IV SCH (18:00)
--- NOTE | 2018-06-25 19:37 | PDOC PROGRESS REPORT ---
Subjective Progress Note for:: 06/25/18 Subjective:: The patient is not moaning as much. I did not see but her daughter stated that she briefly opened her eye. Reason For Visit: PNEUMONIA Physical Exam Vital Signs: Temp Pulse Resp BP Pulse Ox 97.7 F 64 17 156/73 H 98 06/25/18 05:16 06/24/18 14:22 06/25/18 06:00 06/25/18 06:00 06/25/18 06:01 Intake & Output 06/24/18 06/25/18 06/26/18 06:59 06:59 06:59 Intake Total 560 Balance 560 Weight 64 kg General appearance: PRESENT: no acute distress, other - Unresponsive Eye exam: PRESENT: other - Still with slight puffiness right eyelids Respiratory exam: PRESENT: clear to auscultation alina, unlabored. ABSENT: rales, rhonchi, wheezes Cardiovascular exam: PRESENT: RRR, +S1, +S2 GI/Abdominal exam: PRESENT: normal bowel sounds, soft, other - PEG tube in place. ABSENT: tenderness Extremities exam: PRESENT: other - Marked contraction of legs as well as arms Neurological exam: PRESENT: other - Minimally responsive. Skin exam: PRESENT: rash - Erythema and some sloughing in the groin area. Skin fold is very moist. Likely related to yeast. Results Laboratory Results: 06/25/18 08:38 06/25/18 08:38 06/25/18 06/25/18 08:38 08:38 WBC 5.7 RBC 4.53 Hgb 14.5 Hct 41.2 MCV 91 MCH 32.1 MCHC 35.2 RDW 13.3 Plt Count 212 Seg Neutrophils % 63.1 Lymphocytes % 26.9 Monocytes % 8.9 Eosinophils % 0.9 Basophils % 0.2 Absolute Neutrophils 3.6 Absolute Lymphocytes 1.5 Absolute Monocytes 0.5 Absolute Eosinophils 0.1 Absolute Basophils 0.0 Sodium 137.3 Potassium 4.0 Chloride 98 Carbon Dioxide 32 H Anion Gap 7 BUN 16 Creatinine 0.39 L Est GFR ( Amer) > 60 Est GFR (Non-Af Amer) > 60 Glucose 103 Calcium 9.5 Magnesium 1.9 Prealbumin 21.8 Impressions: Chest X-Ray 06/24/18 15:08 IMPRESSION: No evidence of acute cardiopulmonary process. Assessment & Plan - Diagnosis (1) UTI (urinary tract infection) Qualifiers: Urinary tract infection type: acute cystitis Hematuria presence: without hematuria Qualified Code(s): N30.00 - Acute cystitis without hematuria Is this a current diagnosis for this admission?: Yes Plan: Culture reveals gram-positive cocci in chains. I stop the Rocephin and started IV ampicillin as the culture results would seem most likely a strep (enterococcus) (2) Parkinson's disease dementia Qualifiers: Dementia behavioral disturbance: without behavioral disturbance Qualified Code(s): G20 - Parkinson's disease; F02.80 - Dementia in other diseases classified elsewhere without behavioral disturbance Is this a current diagnosis for this admission?: Yes Plan: IV fluids given. No significant change from yesterday. The patient is not moaning. (3) Yeast dermatitis Is this a current diagnosis for this admission?: Yes Plan: Most likely yeast in the bilateral frontal folds. I have asked that the areas be cleaned twice a day. Pat dry gently. Then apply a thin amount of nystatin cream. I did suggest to the family to obtain intra-dry silver. This is a skin fold moisture management product with silver to prevent yeast. - Time Time Spent with patient: 15-24 minutes Medications reviewed and adjusted accordingly: Yes Anticipated discharge: SNF
[2018-06-25] MEDS: TOBRAMYCIN SULFATE/DEXAMETH OPH OINTMENT 3.5 GM OU SCH (22:07)
[2018-06-25] MEDS: LATANOPROST 0.005% OPH SOLN 2.5 ML OD SCH (22:09)
[2018-06-26] MEDS: AMPICILLIN SODIUM 500 MG in NORMAL SALINE 25 ML IV SCH ×5 (00:02→23:13)
[2018-06-26] MEDS: TETRAHYDROZOLINE HCL 0.05% OPH SOLN 15 ML OU SCH ×3 (05:55→22:08)
[2018-06-26] MEDS: POTASSIUM CHLORIDE 20 MEQ/15 ML UDCUP PO SCH (10:27)
[2018-06-26] MEDS: DOCUSATE SODIUM 100 MG/10 ML UDC PEG SCH (10:27)
[2018-06-26] MEDS: MULTIVITAMIN ORAL LIQUID 60 ML PO SCH (10:27)
[2018-06-26] MEDS: NYSTATIN CREAM 15 GM TP SCH ×2 (10:28→18:21)
[2018-06-26] MEDS: FAMOTIDINE 20 MG TABLET PEG SCH (10:29)
[2018-06-26] MEDS: CLOTRIMAZOLE/BETAMETHASONE DIP CREAM 15 GM TOP SCH ×2 (10:29→18:21)
[2018-06-26] MEDS: CYANOCOBALAMIN (VITAMIN B-12) 1,000 MCG TABLET PEG SCH (10:29)
[2018-06-26] MEDS: ENOXAPARIN SODIUM INJ 40 MG/0.4 ML DISP.SYRIN SUBCUT SCH (10:29)
[2018-06-26] MEDS: ASCORBIC ACID 500 MG TABLET PEG SCH (10:30)
[2018-06-26] MEDS: MAGNESIUM OXIDE 400 MG TABLET PEG SCH ×2 (10:30→18:21)
[2018-06-26] MEDS: CHOLECALCIFEROL (D3) 1,000 UNIT TABLET PEG SCH (10:30)
[2018-06-26] MEDS ORDERED: MAGNESIUM CITRATE 296 ML BOTTLE PEG ONE (16:42)
[2018-06-26] MEDS ORDERED: BISACODYL 10 MG SUPP.RECT PR PRN (16:43)
--- NOTE | 2018-06-26 22:00 | PDOC PROGRESS REPORT ---
Subjective Progress Note for:: 06/26/18 Subjective:: The patient appears to be resting comfortably in bed. She is moaning and does not respond to verbal stimuli. Reason For Visit: PNEUMONIA Physical Exam Vital Signs: Temp Pulse Resp BP Pulse Ox 98.4 F 89 18 113/72 94 06/26/18 16:00 06/26/18 16:00 06/26/18 16:00 06/26/18 16:00 06/26/18 16:00 Intake & Output 06/25/18 06/26/18 06/27/18 06:59 06:59 06:59 Intake Total 885 915 Balance 885 915 Weight 64 kg 64.8 kg General appearance: PRESENT: no acute distress Head exam: PRESENT: normocephalic Respiratory exam: PRESENT: clear to auscultation alina, symmetrical, unlabored. ABSENT: rales, stridor, wheezes Cardiovascular exam: PRESENT: RRR, +S1, +S2 GI/Abdominal exam: PRESENT: diminished bowel sounds, soft, other - PEG tube in place. ABSENT: tenderness Musculoskeletal exam: PRESENT: other - Decreased muscle mass Neurological exam: PRESENT: other - Lethargic/unresponsive Psychiatric exam: PRESENT: flat affect Results Laboratory Results: 06/25/18 08:38 06/25/18 08:38 Impressions: Chest X-Ray 06/24/18 15:08 IMPRESSION: No evidence of acute cardiopulmonary process. Assessment & Plan - Diagnosis (1) UTI (urinary tract infection) Qualifiers: Urinary tract infection type: acute cystitis Hematuria presence: without hematuria Qualified Code(s): N30.00 - Acute cystitis without hematuria Is this a current diagnosis for this admission?: Yes Plan: Gram-positive cocci in chains identified. Antibiotic therapy changed to ampicillin due to likelihood of enterococcus being isolated. (2) Parkinson's disease dementia Qualifiers: Dementia behavioral disturbance: without behavioral disturbance Qualified Code(s): G20 - Parkinson's disease; F02.80 - Dementia in other diseases classified elsewhere without behavioral disturbance Is this a current diagnosis for this admission?: Yes Plan: Stable and unchanged. Continue current treatment plan. (3) Yeast dermatitis Is this a current diagnosis for this admission?: Yes Plan: Continue nystatin cream - Time Time Spent with patient: 15-24 minutes Medications reviewed and adjusted accordingly: Yes Anticipated discharge: SNF
[2018-06-26] MEDS: TOBRAMYCIN SULFATE/DEXAMETH OPH OINTMENT 3.5 GM OU SCH (22:08)
[2018-06-26] MEDS: LATANOPROST 0.005% OPH SOLN 2.5 ML OD SCH (22:09)
[2018-06-27] MEDS: AMPICILLIN SODIUM 500 MG in NORMAL SALINE 25 ML IV SCH ×4 (05:41→23:54)
[2018-06-27] MEDS: TETRAHYDROZOLINE HCL 0.05% OPH SOLN 15 ML OU SCH ×3 (05:41→22:49)
[2018-06-27] MEDS: POTASSIUM CHLORIDE 20 MEQ/15 ML UDCUP PO SCH (10:31)
[2018-06-27] MEDS: DOCUSATE SODIUM 100 MG/10 ML UDC PEG SCH (10:31)
[2018-06-27] MEDS: MULTIVITAMIN ORAL LIQUID 60 ML PO SCH (10:35)
[2018-06-27] MEDS: POLYETHYLENE GLYCOL 3350 POWDER 17 GM/1 PACKET PEG SCH (10:37)
[2018-06-27] MEDS: FAMOTIDINE 20 MG TABLET PEG SCH (10:38)
[2018-06-27] MEDS: CLOTRIMAZOLE/BETAMETHASONE DIP CREAM 15 GM TOP SCH ×2 (10:38→17:20)
[2018-06-27] MEDS: NYSTATIN CREAM 15 GM TP SCH ×2 (10:38→17:20)
[2018-06-27] MEDS: ENOXAPARIN SODIUM INJ 40 MG/0.4 ML DISP.SYRIN SUBCUT SCH (10:45)
[2018-06-27] MEDS: CHOLECALCIFEROL (D3) 1,000 UNIT TABLET PEG SCH (10:46)
[2018-06-27] MEDS: MAGNESIUM OXIDE 400 MG TABLET PEG SCH ×2 (10:46→17:46)
[2018-06-27] MEDS: ASCORBIC ACID 500 MG TABLET PEG SCH (10:46)
[2018-06-27] MEDS: CYANOCOBALAMIN (VITAMIN B-12) 1,000 MCG TABLET PEG SCH (10:47)
--- NOTE | 2018-06-27 15:15 | PDOC PROGRESS REPORT ---
Subjective Progress Note for:: 06/27/18 Subjective:: The patient appears to be resting comfortably. Still unresponsive to verbal stimuli Reason For Visit: PNEUMONIA Physical Exam Vital Signs: Temp Pulse Resp BP Pulse Ox 98.1 F 91 24 H 122/69 93 06/27/18 07:59 06/27/18 07:59 06/27/18 07:59 06/27/18 07:59 06/27/18 07:59 Intake & Output 06/26/18 06/27/18 06/28/18 06:59 06:59 06:59 Intake Total 885 1525 335 Balance 885 1525 335 Weight 64.8 kg 54.3 kg General appearance: PRESENT: no acute distress Head exam: PRESENT: normocephalic Eye exam: PRESENT: other - Did not assess Mouth exam: PRESENT: other - Did not assess Respiratory exam: PRESENT: stridor - Slightly stridorous expiratory phase., symmetrical, unlabored, other - Congested breath sounds. ABSENT: accessory muscle use, crackles, tachypnea, wheezes Cardiovascular exam: PRESENT: RRR, +S1, +S2 GI/Abdominal exam: PRESENT: normal bowel sounds, soft. ABSENT: distended, tenderness Extremities exam: ABSENT: pedal edema Musculoskeletal exam: PRESENT: other - Decreased muscle mass. Contractures beatrice cially lower extremities Neurological exam: ABSENT: awake Psychiatric exam: ABSENT: agitated Focused psych exam: ABSENT: restlessness Results Laboratory Results: 06/25/18 08:38 06/25/18 08:38 06/24/18 17:15 Catheterized Urine Urine Culture - Final Enterococcus Faecalis(Group D) Impressions: Chest X-Ray 06/24/18 15:08 IMPRESSION: No evidence of acute cardiopulmonary process. Assessment & Plan - Diagnosis (1) UTI (urinary tract infection) Qualifiers: Urinary tract infection type: acute cystitis Hematuria presence: without hematuria Qualified Code(s): N30.00 - Acute cystitis without hematuria Is this a current diagnosis for this admission?: Yes Plan: Enterococcus faecalis identified. Sensitive to ampicillin. Antibiotics changed yesterday. We will continue ampicillin therapy. (2) Parkinson's disease dementia Qualifiers: Dementia behavioral disturbance: without behavioral disturbance Qualified Code(s): G20 - Parkinson's disease; F02.80 - Dementia in other diseases classified elsewhere without behavioral disturbance Is this a current diagnosis for this admission?: Yes Plan: End-stage. No acute intervention at this time. Symptomatic treatment. (3) Yeast dermatitis Is this a current diagnosis for this admission?: Yes Plan: Continue topical therapy. (4) Constipation Qualifiers: Constipation type: unspecified constipation type Qualified Code(s): K59.00 - Constipation, unspecified Is this a current diagnosis for this admission?: Yes Plan: The patient is finally moving her bowels. She had multiple bowel movements. I instructed the nurse to let me know if they want to decrease the bowel regimen. (5) Dysphagia Qualifiers: Dysphagia type: unspecified Qualified Code(s): R13.10 - Dysphagia, unspecified Is this a current diagnosis for this admission?: Yes Plan: With the head of the bed up and the regimen of tube feeding 2 hours on and 2 hours off the patient is actually doing well. She has minimal residuals. Ongoing flushing of the tube is maintaining patency. We will continue this current regimen. - Time Time Spent with patient: Less than 15 minutes Medications reviewed and adjusted accordingly: Yes Anticipated discharge: SNF Within: within 72 hours
[2018-06-27] MEDS: TOBRAMYCIN SULFATE/DEXAMETH OPH OINTMENT 3.5 GM OU SCH (22:48)
[2018-06-27] MEDS: LATANOPROST 0.005% OPH SOLN 2.5 ML OD SCH (22:48)
[2018-06-28] MEDS: AMPICILLIN SODIUM 500 MG in NORMAL SALINE 25 ML IV SCH ×4 (05:45→23:25)
[2018-06-28] MEDS: TETRAHYDROZOLINE HCL 0.05% OPH SOLN 15 ML OU SCH ×3 (05:46→22:27)
[2018-06-28] MEDS: MULTIVITAMIN ORAL LIQUID 60 ML PO SCH (08:06)
[2018-06-28] MEDS: ENOXAPARIN SODIUM INJ 40 MG/0.4 ML DISP.SYRIN SUBCUT SCH (10:24)
[2018-06-28] MEDS: POTASSIUM CHLORIDE 20 MEQ/15 ML UDCUP PO SCH (10:24)
[2018-06-28] MEDS: DOCUSATE SODIUM 100 MG/10 ML UDC PEG SCH (10:24)
[2018-06-28] MEDS: MAGNESIUM OXIDE 400 MG TABLET PEG SCH ×2 (10:24→17:26)
[2018-06-28] MEDS: CLOTRIMAZOLE/BETAMETHASONE DIP CREAM 15 GM TOP SCH ×2 (10:24→17:27)
[2018-06-28] MEDS: POLYETHYLENE GLYCOL 3350 POWDER 17 GM/1 PACKET PEG SCH (10:25)
[2018-06-28] MEDS: NYSTATIN CREAM 15 GM TP SCH ×2 (10:25→17:27)
[2018-06-28] MEDS: FAMOTIDINE 20 MG TABLET PEG SCH (10:25)
[2018-06-28] MEDS: CHOLECALCIFEROL (D3) 1,000 UNIT TABLET PEG SCH (10:26)
[2018-06-28] MEDS: ASCORBIC ACID 500 MG TABLET PEG SCH (10:26)
[2018-06-28] MEDS: CYANOCOBALAMIN (VITAMIN B-12) 1,000 MCG TABLET PEG SCH (10:26)
--- NOTE | 2018-06-28 14:33 | PDOC PROGRESS REPORT ---
Subjective Progress Note for:: 06/28/18 Subjective:: Patient appears comfortable. Somewhat stridorous breathing likely due to head positioning. Reason For Visit: PNEUMONIA Physical Exam Vital Signs: Temp Pulse Resp BP Pulse Ox 98.6 F 98 22 H 139/61 H 93 06/28/18 11:16 06/28/18 11:16 06/28/18 11:16 06/28/18 11:16 06/28/18 11:16 Intake & Output 06/27/18 06/28/18 06/29/18 06:59 06:59 06:59 Intake Total 1525 1960 385 Balance 1525 1960 385 Weight 54.3 kg 54.1 kg General appearance: PRESENT: no acute distress, other - Obtunded Head exam: PRESENT: normocephalic Respiratory exam: PRESENT: unlabored, other - Congested breath sounds. ABSENT: prolonged expiratory phas, rales, wheezes Cardiovascular exam: PRESENT: RRR, +S1, +S2 GI/Abdominal exam: PRESENT: normal bowel sounds, soft, other - PEG tube in place. ABSENT: tenderness Extremities exam: ABSENT: pedal edema Neurological exam: ABSENT: awake, oriented to person, oriented to place Psychiatric exam: ABSENT: agitated Focused psych exam: ABSENT: restlessness Results Laboratory Results: 06/25/18 08:38 06/25/18 08:38 06/24/18 17:15 Catheterized Urine Urine Culture - Final Enterococcus Faecalis(Group D) Impressions: Chest X-Ray 06/24/18 15:08 IMPRESSION: No evidence of acute cardiopulmonary process. Assessment & Plan - Diagnosis (1) UTI (urinary tract infection) Qualifiers: Urinary tract infection type: acute cystitis Hematuria presence: without hematuria Qualified Code(s): N30.00 - Acute cystitis without hematuria Is this a current diagnosis for this admission?: Yes Plan: Cystitis with enterococcus. Continue ampicillin. (2) Parkinson's disease dementia Qualifiers: Dementia behavioral disturbance: without behavioral disturbance Qualified Code(s): G20 - Parkinson's disease; F02.80 - Dementia in other diseases classified elsewhere without behavioral disturbance Is this a current diagnosis for this admission?: Yes Plan: Stable. Continue same regimen. Not appropriate for physical therapy. (3) Yeast dermatitis Is this a current diagnosis for this admission?: Yes Plan: Continue topical therapy. Daughter reports that there is noticeable improvement. (4) Constipation Qualifiers: Constipation type: unspecified constipation type Qualified Code(s): K59.00 - Constipation, unspecified Is this a current diagnosis for this admission?: Yes Plan: Resolved (5) Dysphagia Qualifiers: Dysphagia type: unspecified Qualified Code(s): R13.10 - Dysphagia, unspecified Is this a current diagnosis for this admission?: Yes Plan: Continue tube feeds. No reflux or significant residuals reported. - Time Time Spent with patient: 15-24 minutes Medications reviewed and adjusted accordingly: Yes Anticipated discharge: SNF Within: within 48 hours - Plan Summary Plan Summary: Reviewed the current status with the patient's daughter. Reviewed the long-term plans which are to find a local apartment and take the patient home with a home health team. It will be several months before this can occur.
[2018-06-28] MEDS: TOBRAMYCIN SULFATE/DEXAMETH OPH OINTMENT 3.5 GM OU SCH (22:25)
[2018-06-28] MEDS: LATANOPROST 0.005% OPH SOLN 2.5 ML OD SCH (22:26)
[2018-06-29 05:58] LABS: HEMATOCRIT 39.3 % (36.0-47.0); HEMOGLOBIN 13.9 g/dL (12.0-15.5); MEAN CORPUSCULAR HEMOGLOBIN 32.8 pg (27.0-33.4); MEAN CORPUSCULAR HGB CONC 35.3 g/dL (32.0-36.0); MEAN CORPUSCULAR VOLUME 93 fl (80-97); PLATELET COUNT 200 10^3/uL (150-450); RED BLOOD COUNT 4.24 10^6/uL (3.72-5.28); RED CELL DISTRIBUTION WIDTH 13.7 % (11.5-14.0); WHITE BLOOD COUNT 4.6 10^3/uL (4.0-10.5)
[2018-06-29] MEDS: TETRAHYDROZOLINE HCL 0.05% OPH SOLN 15 ML OU SCH ×3 (06:02→21:59)
[2018-06-29] MEDS: AMPICILLIN SODIUM 500 MG in NORMAL SALINE 25 ML IV SCH ×2 (06:02→12:49)
[2018-06-29 06:22] LABS: ANION GAP 7 (5-19); BLOOD UREA NITROGEN 23 mg/dL (7-20); CALCIUM 9.2 mg/dL (8.4-10.2); CARBON DIOXIDE 31 mmol/L (22-30); CHLORIDE 107 mmol/L (98-107); GLUCOSE 167 mg/dL (75-110); POTASSIUM 4.3 mmol/L (3.6-5.0); SODIUM 145.3 mmol/L (137-145)
[2018-06-29] MEDS: POLYETHYLENE GLYCOL 3350 POWDER 17 GM/1 PACKET PEG SCH (09:33)
[2018-06-29] MEDS: MULTIVITAMIN ORAL LIQUID 60 ML PO SCH (09:41)
[2018-06-29] MEDS: DOCUSATE SODIUM 100 MG/10 ML UDC PEG SCH (09:48)
[2018-06-29] MEDS: MAGNESIUM OXIDE 400 MG TABLET PEG SCH ×2 (09:49→18:33)
[2018-06-29] MEDS: CLOTRIMAZOLE/BETAMETHASONE DIP CREAM 15 GM TOP SCH ×2 (09:49→18:32)
[2018-06-29] MEDS: ENOXAPARIN SODIUM INJ 40 MG/0.4 ML DISP.SYRIN SUBCUT SCH (09:49)
[2018-06-29] MEDS: POTASSIUM CHLORIDE 20 MEQ/15 ML UDCUP PO SCH (09:49)
[2018-06-29] MEDS: FAMOTIDINE 20 MG TABLET PEG SCH (09:50)
[2018-06-29] MEDS: NYSTATIN CREAM 15 GM TP SCH ×2 (09:50→18:33)
[2018-06-29] MEDS: CYANOCOBALAMIN (VITAMIN B-12) 1,000 MCG TABLET PEG SCH (09:50)
[2018-06-29] MEDS: ASCORBIC ACID 500 MG TABLET PEG SCH (09:51)
[2018-06-29] MEDS: CHOLECALCIFEROL (D3) 1,000 UNIT TABLET PEG SCH (09:51)
[2018-06-29] MEDS ORDERED: AMOXICILLIN TRYHYD 250 MG/5 ML SUSP 80 ML (ER DISP) PEG SCH (13:45)
--- NOTE | 2018-06-29 13:49 | PDOC PROGRESS REPORT ---
Subjective Progress Note for:: 06/29/18 Subjective:: The patient is resting in bed. She has her baseline expiratory moan. Her daughter states that this can vary in intensity and it is her way of signal he that she requires attention such as changing her undergarments or having discomfort. Reason For Visit: PNEUMONIA Physical Exam Vital Signs: Temp Pulse Resp BP Pulse Ox 98.3 F 94 22 H 138/81 H 98 06/29/18 12:20 06/29/18 12:20 06/29/18 12:20 06/29/18 12:20 06/29/18 12:20 Intake & Output 06/28/18 06/29/18 06/30/18 06:59 06:59 06:59 Intake Total 1960 2286 Balance 1959 2286 Weight 54.1 kg 54.1 kg General appearance: PRESENT: no acute distress, other - Appears to be at baseline Head exam: PRESENT: normocephalic Eye exam: PRESENT: other - Did not assess Ear exam: PRESENT: normal external ear exam Mouth exam: ABSENT: neck supple - Secondary to Parkinson's Throat exam: PRESENT: other - Did not assess Respiratory exam: PRESENT: clear to auscultation alina, other - Clear lungs and congested breath sounds suggest secretions in posterior pharynx. ABSENT: crackles, rales, rhonchi, wheezes Cardiovascular exam: PRESENT: RRR, +S1, +S2 GI/Abdominal exam: PRESENT: normal bowel sounds, soft, other - PEG tube in place. ABSENT: tenderness Musculoskeletal exam: ABSENT: ambulatory Neurological exam: PRESENT: other - Hard to distinguish if she is awake or not. ABSENT: alert Psychiatric exam: PRESENT: flat affect. ABSENT: agitated, anxious Focused psych exam: ABSENT: restlessness Results Laboratory Results: 06/29/18 05:13 06/29/18 05:13 06/29/18 06/29/18 05:13 05:13 WBC 4.6 RBC 4.24 Hgb 13.9 Hct 39.3 MCV 93 MCH 32.8 MCHC 35.3 RDW 13.7 Plt Count 200 Sodium 145.3 H Potassium 4.3 Chloride 107 Carbon Dioxide 31 H Anion Gap 7 BUN 23 H Creatinine 0.32 L Est GFR ( Amer) > 60 Est GFR (Non-Af Amer) > 60 Glucose 167 H Calcium 9.2 Impressions: Chest X-Ray 06/24/18 15:08 IMPRESSION: No evidence of acute cardiopulmonary process. Assessment & Plan - Diagnosis (1) UTI (urinary tract infection) Qualifiers: Urinary tract infection type: acute cystitis Hematuria presence: without hematuria Qualified Code(s): N30.00 - Acute cystitis without hematuria Is this a current diagnosis for this admission?: Yes Plan: Enterococcus identified. Needs to complete her course of ampicillin. 4 more days anticipated. Will change to amoxicillin suspension for PEG tube administration to see how well she tolerates it. (2) Parkinson's disease dementia Qualifiers: Dementia behavioral disturbance: without behavioral disturbance Qualified Code(s): G20 - Parkinson's disease; F02.80 - Dementia in other diseases classi fied elsewhere without behavioral disturbance Is this a current diagnosis for this admission?: Yes Plan: Stable. Continue same regimen. Not appropriate for physical therapy. (3) Yeast dermatitis Is this a current diagnosis for this admission?: Yes Plan: Continue nystatin at this time. I suggested intra-dry silver for chronic use after discharge. (4) Constipation Qualifiers: Constipation type: unspecified constipation type Qualified Code(s): K59.00 - Constipation, unspecified Is this a current diagnosis for this admission?: Yes Plan: Multiple bowel movements resulted from increased bowel regimen. If diarrhea ensues I would decrease MiraLAX to one half dose as opposed to stopping abruptly. If diarrhea persists then discontinue MiraLAX. (5) Dysphagia Qualifiers: Dysphagia type: unspecified Qualified Code(s): R13.10 - Dysphagia, unspecified Is this a current diagnosis for this admission?: Yes Plan: Continue PEG tube administration for nutrition. Water flushes increased to give additional free water. (6) Dehydration Is this a current diagnosis for this admission?: Yes Plan: BUN and sodium are increased slightly. I have increased total free water by several 100 mL. Recheck electrolytes tomorrow. - Time Time Spent with patient: 25-34 minutes Medications reviewed and adjusted accordingly: Yes Anticipated discharge: SNF Within: within 48 hours - Plan Summary Plan Summary: The patient should be ready to return to the [facility] facility tomorrow. She will require 3-4 more days of antibiotic therapy.
[2018-06-29] MEDS ORDERED: AMOXICILLIN TRIHYD 250 MG/5 ML SUSP 80 ML PEG SCH (14:00)
[2018-06-29] MEDS: AMOXICILLIN TRIHYD 250 MG/5 ML SUSP 80 ML PEG SCH ×2 (18:32→21:56)
[2018-06-29] MEDS: LATANOPROST 0.005% OPH SOLN 2.5 ML OD SCH (21:56)
[2018-06-29] MEDS: TOBRAMYCIN SULFATE/DEXAMETH OPH OINTMENT 3.5 GM OU SCH (21:57)
[2018-06-30] MEDS: AMOXICILLIN TRIHYD 250 MG/5 ML SUSP 80 ML PEG SCH ×3 (03:13→15:37)
[2018-06-30] MEDS: TETRAHYDROZOLINE HCL 0.05% OPH SOLN 15 ML OU SCH ×2 (05:59→15:37)
[2018-06-30 06:19] LABS: ANION GAP 6 (5-19); BLOOD UREA NITROGEN 23 mg/dL (7-20); CALCIUM 9.5 mg/dL (8.4-10.2); CARBON DIOXIDE 32 mmol/L (22-30); CHLORIDE 106 mmol/L (98-107); GLUCOSE 205 mg/dL (75-110); POTASSIUM 4.2 mmol/L (3.6-5.0); SODIUM 143.9 mmol/L (137-145)
[2018-06-30 12:13] VITALS: BP 119/68
[2018-06-30] MEDS: ENOXAPARIN SODIUM INJ 40 MG/0.4 ML DISP.SYRIN SUBCUT SCH (12:18)
[2018-06-30] MEDS: ASCORBIC ACID 500 MG TABLET PEG SCH (12:19)
[2018-06-30] MEDS: CYANOCOBALAMIN (VITAMIN B-12) 1,000 MCG TABLET PEG SCH (12:19)
[2018-06-30] MEDS: MAGNESIUM OXIDE 400 MG TABLET PEG SCH (12:19)
[2018-06-30] MEDS: CHOLECALCIFEROL (D3) 1,000 UNIT TABLET PEG SCH (12:19)
[2018-06-30] MEDS: FAMOTIDINE 20 MG TABLET PEG SCH (12:19)
[2018-06-30] MEDS: POLYETHYLENE GLYCOL 3350 POWDER 17 GM/1 PACKET PEG SCH (12:20)
[2018-06-30] MEDS: POTASSIUM CHLORIDE 20 MEQ/15 ML UDCUP PO SCH (12:20)
[2018-06-30] MEDS: DOCUSATE SODIUM 100 MG/10 ML UDC PEG SCH (12:21)
[2018-06-30] MEDS: CLOTRIMAZOLE/BETAMETHASONE DIP CREAM 15 GM TOP SCH (12:21)
[2018-06-30] MEDS: MULTIVITAMIN ORAL LIQUID 60 ML PO SCH (12:21)
[2018-06-30] MEDS: NYSTATIN CREAM 15 GM TP SCH (12:21)
--- NOTE | 2018-06-30 12:49 | PDOC TRANSFER SUMMARY ---
General - Admit/Disc Date/PCP Admission Date/Primary Care Provider: 06/25/18 06:13 BEE FRANCES, DO Discharge Date: 06/30/18 - Discharge Diagnosis (1) UTI (urinary tract infection) Is this a current diagnosis for this admission?: Yes (2) Dehydration Is this a current diagnosis for this admission?: Yes (3) Hyponatremia Is this a current diagnosis for this admission?: Yes (4) Parkinson's disease dementia Is this a current diagnosis for this admission?: Yes (5) Yeast dermatitis Is this a current diagnosis for this admission?: Yes - Additional Information Resuscitation Status: Do Not Resuscitate Discharge Diet: Tube Feeding (Comments) Discharge Activity: Bedrest Prescriptions: Amoxicillin Trihydrate [Amoxil 250 mg/5 ml Susp 80 ml] 500 mg PEG Q6A #10 gm Home Medications: Acetaminophen [Pediacare Fever Furniture Upholsterer] 650 mg PEG Q6HP PRN 06/24/18 Albuterol Sulfate [Proventil 0.5% Neb 2.5 mg/0.5 ml Vial.neb] 0.5 ml NEB Q6HP PRN 06/24/18 Ascorbic Acid [Vitamin C] 1,000 mg PEG DAILY 06/24/18 Cholecalciferol (Vitamin D3) [Vitamin D3 1000 Unit Tablet] 1,000 unit PEG DAILY 06/24/18 Cranberry Extract [Cranberry 250 mg Tablet] 250 mg PEG BID 06/24/18 Cyanocobalamin (Vitamin B-12) [Vitamin B-12 1000 mcg Tablet] 1,000 mcg PEG DAILY 06/24/18 Docusate Sodium [Colace Udc 100 mg/10 ml Oral Soln] 100 mg PEG DAILY 06/24/18 Eyelid Cleanser Combination 3 [Ocusoft Lid Scrub Plus] 1 applic OU QAM 06/24/18 Famotidine [Pepcid] 20 mg PEG DAILY 06/24/18 Ipratropium/Albuterol Sulfate [Duoneb 3 ml Ampul] 3 ml NEB Q8HP PRN 06/24/18 Latanoprost/Pf [Latanoprost 0.005% Eye Drop] 1 drop OD QHS 06/24/18 Magnesium Hydroxide [Milk of Magnesia 30 ml Udcup] 30 ml PEG DAILYP PRN 06/24/18 Magnesium Oxide [Magox] 400 mg PEG BID 06/24/18 Multivitamin [My Favorite Multiple] 30 ml PEG QAM 06/24/18 Pot Chl 10% Danielle 20meq/15ml 10 ml PEG DAILY 06/24/18 Psyllium Husk (with Sugar) [Metamucil Packet] 3.4 gm PEG BID 06/24/18 Tetrahydrozoline HCl [Visine] 1 drop OU Q8 06/24/18 Tobramycin Sulfate/Dexameth [Tobradex Oph Ointment 3.5 gm] 1 applic OU QHS 06/24/18 Amoxicillin Trihydrate [Amoxil 250 mg/5 ml Susp 80 ml] 500 mg PEG Q6A #10 gm 06/30/18 Clotrimazole/Betamethasone Dip [Lotrisone Cream 15 gm] 1 applic TOP BID tube 06/30/18 History of Present Illness Admission Date/PCP: 06/25/18 06:13 BEE FRANCES DO History of Present Illness: RADHA MENA is a 87 year old female is a 87 year old female with end-stage Parkinson's disease who is bedbound in a half-way. She is nonverbal. The family noticed a rash. She has had this before when infected. She was brought to the emergency department. Catheter was placed and she was found to have pyuria. Hospital Course Hospital Course: Patient was admitted with difficulty breathing. She is currently being treated for urinary tract infection secondary to enterococcus. Patient appears to be at her baseline mental status which is poor. Chest x-ray done on admission really shows no acute findings. Patient is on PEG tube feeding and she is at a risk for recurrent aspiration. Patient however has been monitored in the hospital at this time she has been hemodynamically stable and it is felt that she can be discharged back to half-way albeit with a high risk for readmission. Physical Exam Vital Signs: Temp Pulse Resp BP Pulse Ox 98.6 F 104 H 20 119/68 99 06/30/18 11:29 06/30/18 11:29 06/30/18 11:29 06/30/18 11:29 06/30/18 11:29 Intake & Output 06/29/18 06/30/18 07/01/18 06:59 06:59 06:59 Intake Total 2286 775 Balance 2286 775 Weight 54.1 kg 66.6 kg General appearance: PRESENT: no acute distress, other - elderly, debilitated, moaning Head exam: PRESENT: atraumatic Ear exam: PRESENT: normal external ear exam Mouth exam: PRESENT: neck supple Neck exam: ABSENT: carotid bruit, JVD Respiratory exam: PRESENT: crackles, rhonchi Cardiovascular exam: PRESENT: RRR, +S1, +S2. ABSENT: diastolic murmur, rubs, systolic murmur GI/Abdominal exam: PRESENT: normal bowel sounds, soft, other - PEG intact. ABSENT: distended, guarding, mass, organolmegaly, rebound, tenderness Rectal exam: PRESENT: deferred Extremities exam: PRESENT: other - contracted Musculoskeletal exam: ABSENT: ambulatory, full ROM Neurological exam: PRESENT: other - obtunded Results Laboratory Results: 06/29/18 05:13 06/30/18 05:15 06/30/18 05:15 Sodium 143.9 Potassium 4.2 Chloride 106 Carbon Dioxide 32 H Anion Gap 6 BUN 23 H Creatinine 0.32 L Est GFR ( Amer) > 60 Est GFR (Non-Af Amer) > 60 Glucose 205 H Calcium 9.5 06/24/18 16:20 Blood Blood Culture - Final NO GROWTH IN 5 DAYS 06/24/18 16:15 Blood Blood Culture - Final NO GROWTH IN 5 DAYS Impressions: Chest X-Ray 06/24/18 15:08 IMPRESSION: No evidence of acute cardiopulmonary process. Transfer Plan - Disposition Transfer Plan: [facility] - Time Spent with Patient Time spent with patient: Greater than 30 Minutes Qualifiers - * PATIENT BEING DISCHARGED WITH ANY OF THE FOLLOWING DIAGNOSIS: No
== END 2018-06-30 15:50 | DRG 690 ==
LOC: ER 14:12 → EH 18:23 → OBSVTOIN 06-25 06:13 → 4N 06-25 07:53
PROVIDERS: ADMIT Internal Medicine; ATTEND Internal Medicine
DX: N30.00 Acute cystitis without hematuria (principal); E87.1 Hypo-osmolality and hyponatremia; F03.90 Unspecified dementia, unspecified severity, without behavioral disturbance, psychotic disturbance, mood disturbance, and anxiety; Z66 Do not resuscitate; E86.0 Dehydration; G20 Parkinson's disease; F02.80 Dementia in other diseases classified elsewhere, unspecified severity, without behavioral disturbance, psychotic disturbance, mood disturbance, and anxiety; B37.2 Candidiasis of skin and nail; B95.2 Enterococcus as the cause of diseases classified elsewhere; E78.00 Pure hypercholesterolemia, unspecified; M19.90 Unspecified osteoarthritis, unspecified site; F32.9 Major depressive disorder, single episode, unspecified; K59.00 Constipation, unspecified; R13.10 Dysphagia, unspecified; Z74.01 Bed confinement status; Z90.710 Acquired absence of both cervix and uterus; Z79.899 Other long term (current) drug therapy; Z88.3 Allergy status to other anti-infective agents; Z88.2 Allergy status to sulfonamides; Z82.49 Family history of ischemic heart disease and other diseases of the circulatory system; Z80.0 Family history of malignant neoplasm of digestive organs
CPT/HCPCS: 36415; 51701; 71045; 80048; 80053; 81001; 83735; 84134; 85025; 85027; 87040; 87086; 87088; 87186; 96365; 99285; J0290; J0696; J1650; J3490; J7050

== ENCOUNTER 2018-10-14 15:56 | Emergency (ER) | payer MEDICARE, MEDICAID ==
[2018-10-14] MEDS ORDERED: NORMAL SALINE 500 ML IV ONE (18:36)
--- NOTE | 2018-10-14 18:59 | RADIOLOGY REPORT (SQ) ---
EXAM DESCRIPTION: CHEST SINGLE VIEW COMPLETED DATE/TIME: 10/14/2018 6:47 pm REASON FOR STUDY: eval for pneumonia COMPARISON: 06/24/2018 EXAM PARAMETERS: NUMBER OF VIEWS: One view. TECHNIQUE: Single frontal radiographic view of the chest acquired. RADIATION DOSE: NA LIMITATIONS: None. FINDINGS: LUNGS AND PLEURA: No opacities, masses or pneumothorax. No pleural effusion. MEDIASTINUM AND HILAR STRUCTURES: No masses. Contour normal. HEART AND VASCULAR STRUCTURES: Heart size is borderline. No pulmonary edema. BONES: No acute findings. HARDWARE: None in the chest. OTHER: No other significant finding. IMPRESSION: Borderline heart size. No pulmonary edema. TECHNICAL DOCUMENTATION: JOB ID: [id number] [employer]- All Rights Reserved Reading location - IP/workstation name: [email or web address]
[2018-10-14 19:24] LABS: ABSOLUTE LYMPHOCYTES (AUTO) 1.1 10^3/uL (0.5-4.7); ABSOLUTE MONOCYTES (AUTO) 0.5 10^3/uL (0.1-1.4); ABSOLUTE NEUT (AUTO) 2.2 10^3/uL (1.7-8.2); BASOPHILS % (AUTO) 0.4 % (0-2); EOSINOPHILS % (AUTO) 0.9 % (0-6); HEMATOCRIT 39.5 % (36.0-47.0); LYMPHOCYTES % (AUTO) 28.8 % (13-45); MEAN CORPUSCULAR HGB CONC 35.4 g/dL (32.0-36.0); MEAN CORPUSCULAR VOLUME 90 fl (80-97); MONOCYTES % (AUTO) 12.6 % (3-13); PLATELET COUNT 237 10^3/uL (150-450); RED BLOOD COUNT 4.37 10^6/uL (3.72-5.28); RED CELL DISTRIBUTION WIDTH 13.9 % (11.5-14.0); SEGMENTED NEUTROPHILS % (AUTO) 57.3 % (42-78); TOTAL CELLS COUNTED % (AUTO) 100 %; WHITE BLOOD COUNT 3.9 10^3/uL (4.0-10.5)
[2018-10-14 19:30] LABS: INTERNATIONAL RATION (INR) 0.99; PROTHROMBIN TIME 13.6 SEC (11.4-15.4)
[2018-10-14 19:57] LABS: VENOUS BLOOD BASE EXCESS 8.3 mmol/L; VENOUS BLOOD HCO3 35.3 mmol/L (20-32); VENOUS BLOOD PH 7.4 (7.30-7.42)
[2018-10-14 20:18] LABS: APPEARANCE,URINE TURBID; BILIRUBIN,URINE NEGATIVE (NEGATIVE); COLOR,URINE AMBER; GLUCOSE, URINE NEGATIVE (NEGATIVE); KETONES,URINE NEGATIVE (NEGATIVE); LEUKOCYTE ESTERASE,URINE LARGE (NEGATIVE); NITRITE,URINE NEGATIVE (NEGATIVE); PROTEIN,URINE NEGATIVE (NEGATIVE); URINE SPECIFIC GRAVITY 1.014
[2018-10-14] MEDS ORDERED: CEFTRIAXONE 1 GM/D5W RTU 1 GM/50 ML RTUPB IV ONE (20:35)
[2018-10-14 21:04] LABS: ALANINE AMINOTRANSFERASE 31 U/L (9-52); ALBUMIN 3.5 g/dL (3.5-5.0); ALKALINE PHOSPHATASE 76 U/L (38-126); ANION GAP 8 (5-19); ASPARTATE AMINO TRANSFERASE 19 U/L (14-36); BILIRUBIN,DIRECT 0.1 mg/dL (0.0-0.4); BILIRUBIN,TOTAL 0.5 mg/dL (0.2-1.3); BLOOD UREA NITROGEN 12 mg/dL (7-20); CALCIUM 8.9 mg/dL (8.4-10.2); CARBON DIOXIDE 34 mmol/L (22-30); CHLORIDE 93 mmol/L (98-107); GLUCOSE 107 mg/dL (75-110); POTASSIUM 4.2 mmol/L (3.6-5.0); SODIUM 135.2 mmol/L (137-145); TOTAL PROTEIN 6.8 g/dL (6.3-8.2)
[2018-10-14] MEDS ORDERED: ONDANSETRON HCL INJ/PF 4 MG/2 ML SDV IV ONE (22:54)
[2018-10-14] MEDS ORDERED: MORPHINE SULFATE 10 MG/ML INJ IV ONE (22:54)
--- NOTE | 2018-10-14 22:59 | EKG REPORT ---
SEVERITY:- BORDERLINE ECG - SINUS RHYTHM LEFT AXIS DEVIATION BORDERLINE T ABNORMALITIES, LATERAL LEADS : Confirmed by: Ad Marquez 14-Oct-2018 22:58:30
--- NOTE | 2018-10-14 23:12 | ER Document Report ---
ED General - General Chief Complaint: Urinary Problem Stated Complaint: URINARY ISSUES Time Seen by Provider: 10/14/18 18:18 Primary Care Provider: BEE FRANCES DO [Primary Care Provider] - Follow up as needed TRAVEL OUTSIDE OF THE [place] IN LAST 30 DAYS: No - HPI Notes: Patient is an 87-year-old female brought in to the emergency department for evaluation from [facility]. She has been moaning, which is an indicator that she is having pain or something is wrong, for the last 48 hours. [facility] noted that she smelled strongly of urine, so thought she may in fact have a urinary tract infection. Her daughters are here with her, they are the primary historians. The patient is nonverbal, has advanced Parkinson's disease. She has had extensive UTIs in the past. She has also been very dehydrated in the past. - Related Data Allergies/Adverse Reactions: Sulfa (Sulfonamide Antibiotics) Allergy (Severe, Verified 04/11/16 18:16) tongue levofloxacin [From Levaquin] Allergy (Verified 04/11/16 18:16) nickel [Nickel] Allergy (Verified 04/11/16 18:16) Past Medical History - General Information source: Relative - Daughters - Social History Smoking Status: Never Smoker Chew tobacco use (# tins/day): No Drug Abuse: None Family History: Reviewed & Not Pertinent, CAD, Malignancy - Gastric cancer--father and brother Patient has suicidal ideation: No Patient has homicidal ideation: No - Past Medical History Cardiac Medical History: Reports: Hx Hypercholesterolemia Denies: Hx Coronary Artery Disease, Hx Heart Attack - possible [place] 01/2011, Hx Hypertension Pulmonary Medical History: Denies: Hx Asthma, Hx Bronchitis, Hx COPD, Hx Pneumonia Neurological Medical History: Reports: Other. Denies: Hx Cerebrovascular Accident, Hx Seizures Renal/ Medical History: Denies: Hx Peritoneal Dialysis Musculoskeletal Medical History: Reports Hx Arthritis Psychiatric Medical History: Reports: Hx Dementia, Hx Depression Traumatic Medical History: Reports: Hx Fractures - rods in L ankle Past Surgical History: Reports: Hx Hysterectomy, Hx Orthopedic Surgery - L knee and L ankle. Denies: Hx Pacemaker - Immunizations Hx Diphtheria, Pertussis, Tetanus Vaccination: Yes Review of Systems - Review of Systems Notes: Review of systems essentially unobtainable secondary to patient being nonverbal Physical Exam - Vital signs Vitals: Temp Pulse Resp BP Pulse Ox 97.8 F 70 18 143/87 H 100 10/14/18 16:10 10/14/18 16:10 10/14/18 16:10 10/14/18 16:10 10/14/18 16:10 - Notes Notes: Frail-appearing 87-year-old female, appears her stated age, in no acute distress. Intermittently she moans with expiration. There is some gurgling noted in the posterior pharynx. Head is normocephalic and appears atraumatic. She does have some bugs noted in her hair. Oral mucosa is moist. Heart is regular rate and rhythm, lungs are clear to all station bilaterally. Abdomen reveals G-tube in place without surrounding erythema. G-tube appears to be clean and open. Abdomen is soft, nontender, normoactive bowel sounds. Extrem ities without cyanosis or clubbing. No apparent skin down. Patient is awake, but drowsy. She intermittently moans with expiration. Peripheral pulses are equal. Course - Re-evaluation Re-evalutation: 10/14/18 23:10 Patient presents to the emergency department for evaluation. Her vital signs are unremarkable. Her laboratory investigations she has some chronic changes, but nothing significant. Her white count is very mildly low, her sodium is very mildly low. She is given IV fluids. She is found to have a urinary tract i nfection. I did again treat this with IV Rocephin. I did review urine cultures in the past. It seems she has had streptococcal infections. We will treat with Keflex. Will write for liquid to go through the G-tube. She is to follow- up with primary care this week. She is to return to the emergency department with worsening or new concerning symptoms of any sort. - Vital Signs Vital signs: Temp Pulse Resp BP Pulse Ox 97.8 F 70 18 143/87 H 100 10/14/18 16:10 10/14/18 16:10 10/14/18 16:10 10/14/18 16:10 10/14/18 16:10 - Laboratory Result Diagrams: 10/14/18 18:59 10/14/18 20:30 Laboratory results interpreted by me: 10/14/18 10/14/18 10/14/18 18:59 18:59 19:49 WBC 3.9 L VBG HCO3 35.3 H Sodium Chloride Carbon Dioxide Creatinine Urine Urobilinogen 4.0 H Ur Leukocyte Esterase LARGE H Urine Ascorbic Acid 40 H 10/14/18 20:30 WBC VBG HCO3 Sodium 135.2 L Chloride 93 L Carbon Dioxide 34 H Creatinine 0.35 L Urine Urobilinogen Ur Leukocyte Esterase Urine Ascorbic Acid - Diagnostic Test Radiology reviewed: Reports reviewed - No acute cardiopulmonary disease - EKG Interpretation by Me Additional EKG results interpreted by me: 10/14/18 23:12 Sinus mechanism with a rate of 88 bpm. Left axis deviation. Nonspecific ST changes, but no acute changes concerning for ischemia or infarction. No significant change compared to prior study of June 14, 2017. Discharge - Discharge Clinical Impression: UTI (urinary tract infection) Condition: Stable Disposition: HOME-SNF (ED ONLY) Instructions: Cephalexin ([facility]), Urinary Tract Infection ([facility]) Additional Instructions: You have been found to have a urinary tract infection. You were given a dose of IV Rocephin here. We will write for Keflex, 3 times daily through the G-tube. Follow-up with primary care doctor next week. Return to the emergency department with worsening or new concerning symptoms. Referrals: BEE FRANCES DO [Primary Care Provider] - Follow up as needed
[2018-10-14] MEDS ORDERED: KETOROLAC TROMETHAMINE INJ/PF 30 MG/1 ML SDV IV ONE (23:54)
[2018-10-15 03:49] VITALS: BP 139/70
== END 2018-10-15 04:15 ==
LOC: ER 15:56
DX: N39.0 Urinary tract infection, site not specified (principal); R39.198 Other difficulties with micturition; G20 Parkinson's disease
CPT/HCPCS: 93005; 99284; 51701; 36415; 87040; 87086; 85025; 85610; 87088; 80053; 81001; 87186; 82803; 83605; 71045; 93010; J1885; J7040; J0696

== ENCOUNTER 2018-10-29 02:04 | Inpatient (IN) | payer MEDICARE, MEDICAID ==
[2018-10-29 02:39] LABS: ALANINE AMINOTRANSFERASE 25 U/L (9-52); ALBUMIN 3.6 g/dL (3.5-5.0); ALKALINE PHOSPHATASE 61 U/L (38-126); ASPARTATE AMINO TRANSFERASE 28 U/L (14-36); BILIRUBIN,DIRECT 0.3 mg/dL (0.0-0.4); BILIRUBIN,TOTAL 0.4 mg/dL (0.2-1.3); BLOOD UREA NITROGEN 13 mg/dL (7-20); CALCIUM 9.2 mg/dL (8.4-10.2); CHLORIDE 79 mmol/L (98-107); GLUCOSE 159 mg/dL (75-110); POTASSIUM 4.8 mmol/L (3.6-5.0); SODIUM 128.4 mmol/L (137-145)
[2018-10-29 02:40] LABS: ANION GAP 9 (5-19); HEMATOCRIT 39.8 % (36.0-47.0); HEMOGLOBIN 13.7 g/dL (12.0-15.5); MEAN CORPUSCULAR HEMOGLOBIN 31.4 pg (27.0-33.4); MEAN CORPUSCULAR HGB CONC 34.5 g/dL (32.0-36.0); MEAN CORPUSCULAR VOLUME 91 fl (80-97); PLATELET COUNT 226 10^3/uL (150-450); RED BLOOD COUNT 4.37 10^6/uL (3.72-5.28); RED CELL DISTRIBUTION WIDTH 12.8 % (11.5-14.0); WHITE BLOOD COUNT 5.8 10^3/uL (4.0-10.5)
[2018-10-29 02:47] LABS: CARBON DIOXIDE 40 mmol/L (22-30)
[2018-10-29 02:52] LABS: NT PRO BNP 4730 pg/mL (<450); TROPONIN I < 0.012 ng/mL
[2018-10-29 03:01] LABS: ABSOLUTE LYMPHOCYTES# (MANUAL) 0.1 10^3/uL (0.5-4.7); ABSOLUTE MONOCYTES # (MANUAL) 0.6 10^3/uL (0.1-1.4); ABSOLUTE NEUTROPHILS# (MANUAL) 5.1 10^3/uL (1.7-8.2); BASOPHILS % (MANUAL) 0 % (0-2); EOSINOPHILS % (MANUAL) 0 % (0-6); LYMPHOCYTES % (MANUAL) 2 % (13-45); MONOCYTES % (MANUAL) 10 % (3-13); RBC MORPHOLOGY COMMENT NORMO-CYTIC/CHROMIC; SEGMENTED NEUTROPHILS % (MAN) 88 % (42-78); TOTAL CELLS COUNTED 100
[2018-10-29 03:03] LABS: PLATELET COMMENT ADEQUATE
--- NOTE | 2018-10-29 03:07 | RADIOLOGY REPORT (SQ) ---
EXAM DESCRIPTION: XR CHEST 1 VIEW COMPLETED DATE/TME: 10/29/2018 02:10 CLINICAL HISTORY: 87 years, Female, sob COMPARISON: Fibroid 19 chest NUMBER OF VIEWS: 1 TECHNIQUE: Portable chest LIMITATIONS: None. FINDINGS: Heart size is normal. Mild elevation right hemidiaphragm. Osteopenia. Lungs clear. No pneumothorax IMPRESSION: No acute cardiopulmonary process copyright 2010 [employer]- All Rights Reserved
[2018-10-29 03:23] LABS: AMORPHOUS SEDIMENT,URINE TRACE /HPF; APPEARANCE,URINE TURBID; BILIRUBIN,URINE NEGATIVE (NEGATIVE); COLOR,URINE AMBER; GLUCOSE, URINE NEGATIVE (NEGATIVE); KETONES,URINE NEGATIVE (NEGATIVE); LEUKOCYTE ESTERASE,URINE LARGE (NEGATIVE); NITRITE,URINE NEGATIVE (NEGATIVE); PROTEIN,URINE 30 mg/dL (NEGATIVE); URINE SPECIFIC GRAVITY 1.011; UROBILINOGEN,URINE NEGATIVE mg/dL (<2.0)
[2018-10-29] MEDS ORDERED: FUROSEMIDE INJ/PF 40 MG/4 ML SDV IV ONE (03:36)
[2018-10-29] MEDS ORDERED: IPRATROPIUM/ALBUTEROL 0.5-2.5 MG/3 ML AMPUL NEB ONE (03:37)
--- NOTE | 2018-10-29 03:44 | ER Document Report ---
ED General - General Chief Complaint: Unresponsive Stated Complaint: TROUBLE BREATHING Time Seen by Provider: 10/29/18 02:09 Primary Care Provider: ANJEL CANNON MD [Primary Care Provider] - Follow up as needed Mode of Arrival: Medic Information source: Emergency Med Personnel Cannot obtain history due to: Other - Unresponsive Notes: This is a debilitated 87-year-old female with a history of congestive heart failure, end-stage Parkinson's disease, urosepsis who was brought in by EMS from [facility] because of respiratory distress and an oxygen saturation of 72%. As patient is brought into the emergency room, she is currently being bagged by EMS. Patient does have with her a DNR order. She was immediately placed on BiPAP. TRAVEL OUTSIDE OF THE [place] IN LAST 30 DAYS: No - HPI Onset: Just prior to arrival Onset/Duration: Sudden Quality of pain: No pain Severity: None Pain Level: Denies Associated symptoms: None Exacerbated by: Denies Relieved by: Denies Similar symptoms previously: Yes Recently seen / treated by doctor: Yes - Related Data Allergies/Adverse Reactions: Sulfa (Sulfonamide Antibiotics) Allergy (Severe, Verified 04/11/16 18:16) tongue levofloxacin [From Levaquin] Allergy (Verified 04/11/16 18:16) nickel [Nickel] Allergy (Verified 04/11/16 18:16) Past Medical History - General Information source: Emergency Med Personnel, Outside Facility Records Cannot obtain history due to: Other - Unresponsive - Social History Smoking Status: Unknown if Ever Smoked Cigarette use (# per day): No Chew tobacco use (# tins/day): No Frequency of alcohol use: None Drug Abuse: None Lives with: Residential Family History: Reviewed & Not Pertinent, CAD, Malignancy - Gastric cancer--father and brother Patient has suicidal ideation: No Patient has homicidal ideation: No - Past Medical History Cardiac Medical History: Reports: Hx Hypercholesterolemia Denies: Hx Coronary Artery Disease, Hx Heart Attack - possible [place] 01/2011, Hx Hypertension Pulmonary Medical History: Denies: Hx Asthma, Hx Bronchitis, Hx COPD, Hx Pneumonia Neurological Medical History: Denies: Hx Cerebrovascular Accident, Hx Seizures Renal/ Medical History: Denies: Hx Peritoneal Dialysis Musculoskeletal Medical History: Reports Hx Arthritis Psychiatric Medical History: Reports: Hx Dementia, Hx Depression Traumatic Medical History: Reports: Hx Fractures - rods in L ankle Past Surgical History: Reports: Hx Hysterectomy, Hx Orthopedic Surgery - L knee and L ankle. Denies: Hx Pacemaker - Immunizations Hx Diphtheria, Pertussis, Tetanus Vaccination: Yes Review of Systems - Review of Systems -: Yes ROS unobtainable due to patient's medical condition Physical Exam - Vital signs Notes: Physical exam: GENERAL: Patient is nonverbal and nonreactive. She appears chronically ill. Sh stacey is tolerating BiPAP at this time. HEAD: Atraumatic, normocephalic. EYES: Pupils equal round and reactive to light, extraocular movements intact, sclera anicteric, conjunctiva are normal. ENT: TMs normal, nares patent, oropharynx clear without exudates. Moist mucous membranes. NECK: Normal range of motion, supple without obvious mass or JVD. LUNGS: Crackles bilaterally. HEART: Regular rate and rhythm without murmurs, rubs or gallops. ABDOMEN: Soft, normoactive bowel sounds. No tenderness to palpation. No guarding, no rebound. No masses appreciated. EXTREMITIES: 1+ edema bilaterally NEUROLOGICAL: Unresponsive PSYCH: Nonverbal, at baseline. SKIN: Warm, Dry, normal turgor, no rashes or lesions noted. Course - Laboratory Result Diagrams: 10/29/18 02:19 10/29/18 02:19 Laboratory results interpreted by me: 10/29/18 10/29/18 10/29/18 02:19 02:19 02:19 Seg Neuts % (Manual) 88 H Lymphocytes % (Manual) 2 L Abs Lymphs (Manual) 0.1 L Sodium 128.4 L Chloride 79 L Carbon Dioxide 40 H* Creatinine 0.30 L Glucose 159 H NT-Pro-B Natriuret Pep 4730 H Urine Protein Ur Leukocyte Esterase Urine Ascorbic Acid 10/29/18 03:04 Seg Neuts % (Manual) Lymphocytes % (Manual) Abs Lymphs (Manual) Sodium Chloride Carbon Dioxide Creatinine Glucose NT-Pro-B Natriuret Pep Urine Protein 30 H Ur Leukocyte Esterase LARGE H Urine Ascorbic Acid 40 H - Diagnostic Test Radiology reviewed: Image reviewed, Reports reviewed - Audio megaly - EKG Interpretation by Me Rate: Tachycardia - EKG shows sinus tachycardia with a ventricular rate of 101, no acute ST-T wave changes compared with EKG 10/14/2018 Critical Care Note - Critical Care Note Total time excluding time spent on procedures (mins): 60 Discharge - Discharge Clinical Impression: Decompensated heart failure, Respiratory failure Condition: Serious Disposition: ADMITTED INPATIENT Admitting Provider: Elier (Hospitalist) Unit Admitted: Medical Floor Referrals: ANJEL CANNON MD [Primary Care Provider] - Follow up as needed
[2018-10-29] MEDS ORDERED: MAG HYDROX/AL HYDROX/SIMETH SUSP 30 ML UDCUP PO PRN (04:05)
[2018-10-29] MEDS ORDERED: ONDANSETRON HCL INJ/PF 4 MG/2 ML SDV IV PRN ×2 (04:05→07:30)
[2018-10-29] MEDS ORDERED: ONDANSETRON 4 MG TAB.RAPDIS PO PRN (04:05)
[2018-10-29] MEDS ORDERED: MAGNESIUM HYDROXIDE SUSP 30 ML UDCUP PO PRN (04:05)
[2018-10-29] MEDS ORDERED: ACETAMINOPHEN 325 MG TABLET PO PRN (04:11)
[2018-10-29] MEDS ORDERED: HYDRALAZINE HCL INJ/PF 20 MG/1 ML SDV IV PRN (04:11)
[2018-10-29] MEDS ORDERED: MAGNESIUM HYDROXIDE SUSP 30 ML UDCUP PEG PRN (04:59)
--- NOTE | 2018-10-29 06:07 | PDOC H&P ---
History of Present Illness Admission Date/PCP: 10/29/2018 [facility] MD Patient complains of: Dyspnea with hypoxia History of Present Illness: RADHA MENA is a 87 year old female who presented from the [facility] via EMS on the canal tender of admission. She was found and by staff dyspneic and struggling to breathe. When EMS arrived patient was started having O2 sat in the 70s and a initiated [id number] resuscitation in route to the hospital. 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 In the emergency room she was found to be hypoxic and possibly hypercapnic. She was started on BiPAP with excellent response. Chest x-ray did not reveal significant clinical changes per report. BNP was elevated. Patient was subsequently admitted to hospital for further evaluation and treatment. Past Medical History Cardiac Medical History: Reports: Hyperlipidema Denies: Coronary Artery Disease, Myocardial Infarction - possible GA 01/2011, Hypertension Pulmonary Medical History: Reports: Bronchitis, Pneumonia Denies: Asthma, Chronic Obstructive Pulmonary Disease (COPD) EENT Medical History: Reports: Eyes - Unilateral blindness and glaucoma per family report, Ears - Right auricle with history of trauma per family report Neurological Medical History: Reports: Other - Diagnosis of Parkinson's disease per family report Denies: Hemorrhagic CVA, Ischemic CVA, Seizures Endocrine Medical History: Reports: Diabetes Mellitus Type 2, Obesity Denies: Diabetes Mellitus Type 1, Hyperthyroidism, Hypothyroidism Renal/ Medical History: Denies: Chronic Kidney Disease, Nephrolithiasis Malignancy Medical History: Reports: None GI Medical History: Denies: Cirrhosis, Hepatitis Musculoskeltal Medical History: Reports: Arthritis Denies: Gout Skin Medical History: Denies: Eczema, Psoriasis Psychiatric Medical History: Reports: Dementia, Depression Denies: Alcohol Dependency, Substance Abuse, Tobacco Dependency Traumatic Medical History: Reports: None Hematology: Denies: Anemia, Bleeding Tendencies Infectious Medical History: Reports: None Past Surgical History Past Surgical History: Reports: Hysterectomy, Orthopedic Surgery - L knee and L ankle Social History Information Source: Relative, [facility] Records Lives with: [facility] Smoking Status: Never Smoker Frequency of Alcohol Use: None Hx Recreational Drug Use: No Drugs: None Hx Prescription Drug Abuse: No - Advance Directive Resuscitation Status: Do Not Resuscitate Surrogate healthcare decision maker:: Arleth [place] the patient's daughter Family History Family History: CAD, Malignancy - Gastric cancer--father and brother Parental Family History Reviewed: Yes Children Family History Reviewed: No Sibling(s) Family History Reviewed.: Yes Medication/Allergy Home Medications: Acetaminophen [Pediacare Fever [employer] Quality Control Manager] 650 mg PEG Q6HP PRN 06/24/18 Albuterol Sulfate [Proventil 0.5% Neb 2.5 mg/0.5 ml Vial.neb] 0.5 ml NEB Q6HP PRN 06/24/18 Ascorbic Acid [Vitamin C] 1,000 mg PEG DAILY 06/24/18 Cholecalciferol (Vitamin D3) [Vitamin D3 1000 Unit Tablet] 1,000 unit PEG DAILY 06/24/18 Cranberry Extract [Cranberry 250 mg Tablet] 250 mg PEG BID 06/24/18 Cyanocobalamin (Vitamin B-12) [Vitamin B-12 1000 mcg Tablet] 1,000 mcg PEG DAILY 06/24/18 Docusate Sodium [Colace Udc 100 mg/10 ml Oral Soln] 100 mg PEG DAILY 06/24/18 Eyelid Cleanser Combination 3 [Ocusoft Lid Scrub Plus] 1 applic OU QAM 06/24/18 Famotidine [Pepcid] 20 mg PEG DAILY 06/24/18 Ipratropium/Albuterol Sulfate [Duoneb 3 ml Ampul] 3 ml NEB Q8HP PRN 06/24/18 Latanoprost/Pf [Latanoprost 0.005% Eye Drop] 1 drop OD QHS 06/24/18 Magnesium Hydroxide [Milk of Magnesia 30 ml Udcup] 30 ml PEG DAILYP PRN 06/24/18 Magnesium Oxide [Magox] 400 mg PEG BID 06/24/18 Multivitamin [My Favorite Multiple] 30 ml PEG QAM 06/24/18 Pot Chl 10% Danielle 20meq/15ml 10 ml PEG DAILY 06/24/18 Psyllium Husk (with Sugar) [Metamucil Packet] 3.4 gm PEG BID 06/24/18 Tetrahydrozoline HCl [Visine] 1 drop OU Q8 06/24/18 Tobramycin Sulfate/Dexameth [Tobradex Oph Ointment 3.5 gm] 1 applic OU QHS 06/24/18 Amoxicillin Trihydrate [Amoxil 250 mg/5 ml Susp 80 ml] 500 mg PEG Q6A #10 gm 06/30/18 Clotrimazole/Betamethasone Dip [Lotrisone Cream 15 gm] 1 applic TOP BID tube 06/30/18 Cephalexin Monohydrate [Keflex 125 mg/5 ml Susp] 500 mg PEG TID #420 ml 10/14/18 Allergies/Adverse Reactions: Sulfa (Sulfonamide Antibiotics) Allergy (Severe, Verified 04/11/16 18:16) tongue levofloxacin [From Levaquin] Allergy (Verified 04/11/16 18:16) nickel [Nickel] Allergy (Verified 04/11/16 18:16) Review of Systems ROS unobtainable: Due to mental status Physical Exam General appearance: PRESENT: no acute distress, other - On BiPAP Head exam: PRESENT: atraumatic, normocephalic Eye exam: ABSENT: conjunctival injection, scleral icterus Ear exam: PRESENT: normal external ear exam. ABSENT: bleeding, drainage Mouth exam: PRESENT: dry mucosa, neck supple Neck exam: PRESENT: JVD - Mild bilateral. ABSENT: thyromegaly, tracheal deviation Respiratory exam: PRESENT: decreased breath sounds - Bilateral bases, rales - Bibasilar rales. ABSENT: symmetrical, wheezes Cardiovascular exam: PRESENT: gallop - S4 gallop, RRR. ABSENT: clicks, rubs Pulses: PRESENT: normal radial pulses, normal dorsalis pedis pul Vascular exam: PRESENT: normal capillary refill. ABSENT: pallor GI/Abdominal exam: PRESENT: normal bowel sounds, soft Rectal exam: PRESENT: deferred Extremities exam: PRESENT: pedal edema - Bilateral, +1 edema - Bilateral pretibial edema. ABSENT: joint swelling Musculoskeletal exam: ABSENT: deformity, dislocation Neurological exam: PRESENT: other - Not verbally responsive, somnolent Psychiatric exam: PRESENT: other - Unable to assess as patient is on BiPAP, is nonverbal and has severe dementia Skin exam: PRESENT: dry, intact, warm. ABSENT: jaundice, rash, urticaria Results Laboratory Results: 10/29/18 02:19 10/29/18 02:19 10/29/18 10/29/18 10/29/18 02: 02:19 03:04 WBC 5.8 RBC 4.37 Hgb 13.7 Hct 39.8 MCV 91 MCH 31.4 MCHC 34.5 RDW 12.8 Plt Count 226 Seg Neutrophils % Not Reportable Lymphocytes % Not Reportable Monocytes % Not Reportable Eosinophils % Not Reportable Basophils % Not Reportable Absolute Neutrophils Not Reportable Absolute Lymphocytes Not Reportable Absolute Monocytes Not Reportable Absolute Eosinophils Not Reportable Absolute Basophils Not Reportable Sodium 128.4 L Potassium 4.8 Chloride 79 L Carbon Dioxide 40 H* Anion Gap 9 BUN 13 Creatinine 0.30 L Est GFR ( Amer) > 60 Est GFR (Non-Af Amer) > 60 Glucose 159 H Calcium 9.2 Total Bilirubin 0.4 AST 28 ALT 25 Alkaline Phosphatase 61 Total Protein 7.0 Albumin 3.6 Urine Color SUBHA Urine Appearance TURBID Urine pH 9.0 Ur Specific [place] 1.011 Urine Protein 30 H Urine Glucose (UA) NEGATIVE Urine Ketones NEGATIVE Urine Blood NEGATIVE Urine Nitrite NEGATIVE Ur Leukocyte Esterase LARGE H Urine WBC (Auto) 63 Urine RBC (Auto) 1 10/29/18 02:19 Troponin I < 0.012 NT-Pro-B Natriuret Pep 4730 H Impressions: Chest X-Ray 10/29/18 02:10 IMPRESSION: No acute cardiopulmonary process copyright 2011 [employer]- All Rights Reserved Assessment and Plan - Diagnosis (1) Acute respiratory failure with hypoxia Is this a current diagnosis for this admission?: Yes Plan: Patient be treated with supportive measures utilizing BiPAP or other respiratory supportive measures per family request. Serial arterial and/or venous blood gases will be obtained as required to assure adequate oxygenation and ventilation. Patient be monitored closely on a medical floor with O2 sat monitoring. (2) Acute congestive heart failure Qualifiers: Heart failure type: unspecified Qualified Code(s): I50.9 - Heart failure, unspecified Is this a current diagnosis for this admission?: Yes Plan: Patient's congestive heart failure will be treated with an appropriate evaluation utilizing a echocardiogram and initiation of primary drug therapy with metoprolol XL, spironolactone, lisinopril and Demadex as needed for edema. (3) Pyuria Is this a current diagnosis for this admission?: Yes Plan: Patient is noted to have significant pyuria on urinalysis. She was treated empirically with Rocephin 1 g IV every 24 hours until urine culture results are available. (4) Do not resuscitate Is this a current diagnosis for this admission?: Yes Plan: Patient will be maintained as a DNR. A discussion should be had with the family concerning possible comfort measures only and/or hospice care. (5) Parkinson's disease dementia Qualifiers: Dementia behavioral disturbance: without behavioral disturbance Qualified Code(s): G20 - Parkinson's disease; F02.80 - Dementia in other diseases classified elsewhere without behavioral disturbance Is this a current diagnosis for this admission?: Yes Plan: Patient has end-stage Parkinson's disease with dementia. She will be maintained on her usual medications as appropriate. - Time Time Spent with patient: 25-34 minutes Medications reviewed and adjusted accordingly: Yes Anticipated discharge: SNF - Inpatient Certification Based on my medical assessment, after consideration of the patient's comorbidities, presenting symptoms, or acuity I expect that the services needed warrant INPATIENT care.: Yes I certify that my determination is in accordance with my understanding of Medicare's requirements for reasonable and necessary INPATIENT services [42 CFR 412.3e].: Yes Medical Necessity: Significant Comorbidiites Make Outpatient Treatment Too Risky, Need Close Monitoring Due to Risk of Patient Decompensation, Need for Nebulizer Therapy and Monitoring of Response, Risk of Complication if Not Cared For in Hospital
--- NOTE | 2018-10-29 06:34 | EKG REPORT ---
SEVERITY:- ABNORMAL ECG - SINUS TACHYCARDIA SHANA, CONSIDER BIATRIAL ABNORMALITIES LEFT AXIS DEVIATION NONSPECIFIC T ABNORMALITIES, ANT-LAT LEADS : Confirmed by: Manav Taylor MD 29-Oct-2018 06:33:32
[2018-10-29] MEDS ORDERED: CEFTRIAXONE 1 GM/D5W RTU 1 GM/50 ML RTUPB IV SCH (07:00)
[2018-10-29] MEDS ORDERED: MULTIVITAMIN PEG SCH (08:00)
[2018-10-29] MEDS ORDERED: POTASSIUM CHLORIDE PEG SCH (10:00)
[2018-10-29] MEDS ORDERED: FAMOTIDINE 20 MG TABLET PO SCH (10:00)
[2018-10-29] MEDS ORDERED: POTASSIUM CHLORIDE 20 MEQ PACKET PEG SCH (10:00)
[2018-10-29] MEDS ORDERED: DOCUSATE SODIUM 100 MG/10 ML UDC PO SCH (10:00)
[2018-10-29] MEDS ORDERED: (PENDING PHARMACY ID) (Psyllium Husk (With Sugar) [Metamucil Packet] 3.4 GM) PEG SCH (10:00)
[2018-10-29] MEDS: CEFTRIAXONE SODIUM 1,000 MG in DEXTROSE 5%-WATER 50 ML IV SCH (10:04)
[2018-10-29 10:09] LABS: CREATINE KINASE MB 4.6 ng/mL (<4.55); TROPONIN I 0.017 ng/mL
[2018-10-29] MEDS: LISINOPRIL 5 MG TABLET PEG SCH (10:21)
[2018-10-29] MEDS: DOCUSATE SODIUM 100 MG/10 ML UDC PEG SCH (10:22)
[2018-10-29] MEDS: POLYETHYLENE GLYCOL 3350 POWDER 17 GM/1 PACKET PEG SCH (10:22)
[2018-10-29] MEDS: ASCORBIC ACID 500 MG TABLET PEG SCH (10:24)
[2018-10-29] MEDS: CHOLECALCIFEROL (D3) 1,000 UNIT TABLET PEG SCH (10:25)
[2018-10-29] MEDS: CYANOCOBALAMIN (VITAMIN B-12) 1,000 MCG TABLET PEG SCH (10:25)
[2018-10-29] MEDS: MAGNESIUM OXIDE 400 MG TABLET PEG SCH ×2 (10:26→17:03)
[2018-10-29] MEDS: FAMOTIDINE 20 MG TABLET PEG SCH (10:26)
[2018-10-29] MEDS: ENOXAPARIN SODIUM INJ 40 MG/0.4 ML DISP.SYRIN SUBCUT SCH (10:26)
[2018-10-29] MEDS: MULTIVITS W-MIN/IRON SOLN 60 ML PEG SCH (10:27)
[2018-10-29] MEDS: SPIRONOLACTONE 25 MG TABLET PEG SCH (11:00)
[2018-10-29] MEDS: CARVEDILOL 3.125 MG TABLET PEG SCH ×2 (11:00→22:26)
[2018-10-29] MEDS: FUROSEMIDE INJ/PF 20 MG/2 ML SDV IV SCH ×2 (11:54→17:03)
[2018-10-29 15:54] LABS: CREATINE KINASE MB 3.13 ng/mL (<4.55); TROPONIN I 0.026 ng/mL
--- NOTE | 2018-10-29 20:25 | XCELERA REPORT ---
[address] [address] Transthoracic Echocardiogram Report Name: RADHA MENA Age: 87 yrs Gender: Female : 1930 Patient Status: Inpatient Patient Location: [address] [place], [place] [address] Study Date: 10/29/2018 09:14 AM Height: 62 in Weight: 140 lb BSA: 1.6 m2 Procedure: A two-dimensional transthoracic echocardiogram with color flow and Doppler was performed. Study Quality: Poor. The study was technically difficult with many images being suboptimal in quality. The study was technically limited with all images being suboptimal in quality. Reason For Study: Dyspnea and respiratory failure, increased BNP History: Dyspnea / Elevated BNP. Ordering Physician: LEON SIMS Performed By: Orquidea Medina Interpretation Summary The left ventricle is normal in size. There is normal left ventricular wall thickness. Probably no regional wall motion abnormality and probabbly normal LVEFBut cannot be sure.Recommend MUGA with FIRST PASS for RVEF and LVEF. Doppler measurements suggest normal left ventricular diastolic function Not s good study to assess for throbus or intra cardiac shunts. The right atrium is normal. The left atrial size is normal. There is no evidence of mitral valve prolapse. There is no mitral regurgitation noted. There is no aortic valve stenosis No aortic regurgitation is present. There is no tricuspid stenosis. No tricuspid regurgitation. Unable to calculate RVSP due to lack f TR jet. The pulmonic valve is not well visualized. The aortic root is not well visualized. The inferior vena cava was not visualized There is no pericardial effusion. MMode/2D Measurements & Calculations RVDd: 2.8 cm LVIDd: 5.4 cm FS: 34.4 % Ao root diam: 3.1 cm IVSd: 1.00 cm LVIDs: 3.6 cm EDV(Teich): 143.4 ml Ao root area: 7.4 cm2 LVPWd: 1.1 cm ESV(Teich): 53.2 ml EF(Teich): 62.9 % Doppler Measurements & Calculations MV E max priya: MV dec slope: Ao V2 max: LV V1 max P.9 cm/sec 1363 cm/sec2 110.3 cm/sec 2.4 mmHg MV A max priya: MV dec time: Ao max PG: LV V1 max: 36.9 cm/sec 0.09 sec 4.9 mmHg 78.1 cm/sec MV E/A: 3.2 PA V2 max: 80.9 cm/sec PA max P.6 mmHg Left Ventricle The left ventricle is normal in size. There is normal left ventricular wall thickness. Probably no regional wall motion abnormality and probabbly normal LVEFBut cannot be sure.Recommend MUGA with FIRST PASS for RVEF and LVEF. Doppler measurements suggest normal left ventricular diastolic function. Not s good study to assess for throbus or intra cardiac shunts. Right Ventricle The right ventricle is grossly normal size. The right ventricle is not well visualized secondary to technical limitations. Atria The right atrium is normal. The left atrial size is normal. Mitral Valve There is no evidence of mitral valve prolapse. There is no vegetation seen on the mitral valve. There is no mitral valve stenosis. There is no mitral regurgitation noted. Aortic Valve There is no aortic valve stenosis. No aortic regurgitation is present. Tricuspid Valve There is no tricuspid stenosis. No tricuspid regurgitation. Unable to calculate RVSP due to lack f TR jet. Pulmonic Valve The pulmonic valve is not well visualized. Great Vessels The aortic root is not well visualized. The inferior vena cava was not visualized. Effusions There is no pericardial effusion. : LEON SIMS > Seema Castellanos
[2018-10-29 20:56] LABS: CREATINE KINASE MB 2.35 ng/mL (<4.55); TROPONIN I 0.025 ng/mL
[2018-10-29] MEDS: LATANOPROST 0.005% OPH SOLN 2.5 ML OU SCH (22:32)
[2018-10-30 05:34] LABS: HEMATOCRIT 41.9 % (36.0-47.0); HEMOGLOBIN 14.3 g/dL (12.0-15.5); MEAN CORPUSCULAR HEMOGLOBIN 31.7 pg (27.0-33.4); MEAN CORPUSCULAR HGB CONC 34.1 g/dL (32.0-36.0); MEAN CORPUSCULAR VOLUME 93 fl (80-97); PLATELET COUNT 231 10^3/uL (150-450); RED BLOOD COUNT 4.51 10^6/uL (3.72-5.28); RED CELL DISTRIBUTION WIDTH 13.2 % (11.5-14.0)
[2018-10-30 05:49] LABS: BLOOD UREA NITROGEN 37 mg/dL (7-20); CALCIUM 9.9 mg/dL (8.4-10.2); CHLORIDE 81 mmol/L (98-107); GLUCOSE 137 mg/dL (75-110); SODIUM 134.1 mmol/L (137-145)
[2018-10-30 05:57] LABS: ANION GAP 12 (5-19); WHITE BLOOD COUNT 13.7 10^3/uL (4.0-10.5)
[2018-10-30 05:59] LABS: ABSOLUTE LYMPHOCYTES# (MANUAL) 0.3 10^3/uL (0.5-4.7); ABSOLUTE MONOCYTES # (MANUAL) 0.7 10^3/uL (0.1-1.4); ABSOLUTE NEUTROPHILS# (MANUAL) 12.7 10^3/uL (1.7-8.2); BAND NEUTROPHILS % (MANUAL) 2 % (3-5); BASOPHILS % (MANUAL) 0 % (0-2); EOSINOPHILS % (MANUAL) 0 % (0-6); LYMPHOCYTES % (MANUAL) 2 % (13-45); MONOCYTES % (MANUAL) 5 % (3-13); PLATELET COMMENT ADEQUATE; SEGMENTED NEUTROPHILS % (MAN) 91 % (42-78); STOMATOCYTES 2+; TOTAL CELLS COUNTED 100
[2018-10-30 06:00] LABS: POTASSIUM 6.4 mmol/L (3.6-5.0)
[2018-10-30 06:02] LABS: FREE T3 3.23 pg/mL (2.77-5.27); FREE T4 (FREE THYROXINE) 0.99 ng/dL (0.78-2.19)
[2018-10-30 06:16] LABS: THYROID STIMULATING HORMONE 1.47 uIU/mL (0.47-4.68)
[2018-10-30 06:28] LABS: CARBON DIOXIDE 41 mmol/L (22-30)
[2018-10-30] MEDS ORDERED: CALCIUM GLUCONATE 1,000 MG in DEXTROSE 5%-WATER 50 ML IV ONE ×2 (09:00→16:44)
[2018-10-30] MEDS: DOCUSATE SODIUM 100 MG/10 ML UDC PEG SCH (09:35)
[2018-10-30] MEDS: LISINOPRIL 5 MG TABLET PEG SCH (09:36)
[2018-10-30] MEDS: POLYETHYLENE GLYCOL 3350 POWDER 17 GM/1 PACKET PEG SCH (09:36)
[2018-10-30] MEDS: METOCLOPRAMIDE HCL INJ/PF 10 MG/2 ML SDV IV SCH ×4 (09:47→21:46)
[2018-10-30] MEDS: SPIRONOLACTONE 25 MG TABLET PEG SCH (09:47)
[2018-10-30] MEDS: MULTIVITS W-MIN/IRON SOLN 60 ML PEG SCH (09:48)
[2018-10-30] MEDS: CARVEDILOL 3.125 MG TABLET PEG SCH (09:49)
[2018-10-30] MEDS: MAGNESIUM OXIDE 400 MG TABLET PEG SCH ×2 (09:50→17:32)
[2018-10-30] MEDS: FUROSEMIDE INJ/PF 20 MG/2 ML SDV IV SCH (09:50)
[2018-10-30] MEDS: ENOXAPARIN SODIUM INJ 40 MG/0.4 ML DISP.SYRIN SUBCUT SCH (09:50)
[2018-10-30] MEDS: FAMOTIDINE 20 MG TABLET PEG SCH (09:50)
[2018-10-30] MEDS: CEFTRIAXONE SODIUM 1,000 MG in DEXTROSE 5%-WATER 50 ML IV SCH (09:51)
[2018-10-30] MEDS: CYANOCOBALAMIN (VITAMIN B-12) 1,000 MCG TABLET PEG SCH (09:51)
[2018-10-30] MEDS: CHOLECALCIFEROL (D3) 1,000 UNIT TABLET PEG SCH (09:52)
[2018-10-30] MEDS: ASCORBIC ACID 500 MG TABLET PEG SCH (09:52)
[2018-10-30] MEDS ORDERED: DEXTROSE 50%-WATER 25 GM/50 ML DISP.SYRIN IV ONE ×2 (10:00→16:44)
[2018-10-30] MEDS ORDERED: VANCOMYCIN HCL 0 MG in DEXTROSE 5%-WATER 250 ML IV NR (10:00)
[2018-10-30] MEDS ORDERED: CALCIUM GLUCONATE 1000 MG/10 ML INJ IV ONE ×2 (10:00→17:15)
[2018-10-30] MEDS ORDERED: INSULIN REG, HUMAN 100 UNIT/ML 3 ML VIAL (PYX) IV ONE ×2 (10:00→16:43)
[2018-10-30] MEDS ORDERED: SODIUM POLYSTYRENE SULFONATE 15 GM/60 ML PO ONE (10:30)
[2018-10-30] MEDS: PIPERACILLIN SODIUM/TAZOBACTAM 3.375 GM in NORMAL SALINE 100 ML IV SCH ×3 (12:24→23:19)
[2018-10-30] MEDS: VANCOMYCIN HCL 750 MG in DEXTROSE 5%-WATER 250 ML IV SCH (12:24)
[2018-10-30 13:52] LABS: CREATINE KINASE MB 2.3 ng/mL (<4.55); TROPONIN I 0.086 ng/mL
[2018-10-30] MEDS: (PENDING PHARMACY ID) (Psyllium Husk (With Sugar) [Metamucil Packet] 3.4 GM) PEG SCH (14:51)
[2018-10-30 15:51] LABS: BLOOD UREA NITROGEN 53 mg/dL (7-20); CALCIUM 9.6 mg/dL (8.4-10.2); CHLORIDE 80 mmol/L (98-107); GLUCOSE 135 mg/dL (75-110); SODIUM 132.5 mmol/L (137-145)
[2018-10-30 16:06] LABS: ANION GAP 10 (5-19); POTASSIUM 5.7 mmol/L (3.6-5.0)
[2018-10-30 16:07] LABS: CARBON DIOXIDE 43 mmol/L (22-30)
--- NOTE | 2018-10-30 16:21 | EKG REPORT ---
SEVERITY:- ABNORMAL ECG - SINUS RHYTHM SHANA, CONSIDER BIATRIAL ABNORMALITIES BORDERLINE LEFT AXIS DEVIATION REPOL ABNRM SUGGESTS ISCHEMIA, ANT-LAT LEADS : Confirmed by: Manav Taylor MD 30-Oct-2018 16:20:30
[2018-10-30] MEDS ORDERED: SODIUM POLYSTYRENE SULFONATE 15 GM/60 ML PEG ONE ×2 (16:44→18:15)
[2018-10-30] MEDS ORDERED: NORMAL SALINE 1000 ML 1,000 ML IV PRN (16:48)
[2018-10-30] MEDS ORDERED: NORMAL SALINE 1000 ML 500 ML IV ONE (16:48)
[2018-10-30 19:57] LABS: CREATINE KINASE MB 2.69 ng/mL (<4.55); TROPONIN I 0.074 ng/mL
[2018-10-30 21:21] LABS: BLOOD UREA NITROGEN 57 mg/dL (7-20); CALCIUM 9.5 mg/dL (8.4-10.2); CHLORIDE 83 mmol/L (98-107); GLUCOSE 72 mg/dL (75-110); POTASSIUM 5.3 mmol/L (3.6-5.0); SODIUM 134.7 mmol/L (137-145)
[2018-10-30 21:31] LABS: ANION GAP 11 (5-19)
[2018-10-30 21:33] LABS: CARBON DIOXIDE 41 mmol/L (22-30)
[2018-10-30] MEDS: LATANOPROST 0.005% OPH SOLN 2.5 ML OU SCH (21:46)
--- NOTE | 2018-10-30 21:46 | PDOC PROGRESS REPORT ---
Subjective Progress Note for:: 10/30/18 Subjective:: 87 y.o. F with a PMH HLD, bronchitis, Parkinsons, DM type 2, from [place] detention presented to [facility] ED for SOB and dyspnea requiring BIPAP. CXR was relatively normal, mild vascular congestion and a R hemidiaphragm. Elevated BNP to 4730. UA was (+) for UTI - turbid appearance with large leuk esterase. The patient was given Rocephin in ED, switched to Vancomycin and Zosyn once inpatient. The patient was seen today on rounds. Her clinical picture has not changed. She remains on BIPAP. Eyes closed, nonverbal, bedbound, lower extremities contracted. Lungs are coarse to auscultation. The patient does not appear to be in distress, she is breathing comfortably on the BIPAP. Pulses are faint in the upper and lower extremities. Clumps of pus are seen in the Ly catheter tubing. The patient's antibiotics were broadened today from Rocephin to Vanc/Zosyn. The patient's potassium was 6.9 today, she was given insulin 10U, 1/2amp D50, 1G Calcium Gluconate and 30G Kayexalate. Repeat chemistry this afternoon shows the potassium is still elevated at 5.9. Unfortunately, her creatinine is increasing from .3-->1.8. If the patient remains hyperkalemic and her creatinine continues to increase, will need to discuss dialysis with the medical POA. The patient was given another round of insulin, D50, calcium gluconate and kayexalate this evening. Will recheck chemistry later tonight. Reason For Visit: ACUTE RESPIRATORY FAILURE WITH HYPOXIA Physical Exam Vital Signs: Temp Pulse Resp BP Pulse Ox 97.3 F 93 16 88/46 L 98 10/30/18 12:00 10/30/18 12:00 10/30/18 12:01 10/30/18 12:00 10/30/18 09:22 Intake & Output 10/29/18 10/30/18 10/31/18 06:59 06:59 06:59 Intake Total 550 350 Output Total 925 Balance -375 350 Weight 63.6 kg 62.4 kg General appearance: PRESENT: no acute distress, thin Eye exam: PRESENT: conjunctiva pink, PERRLA Neck exam: ABSENT: full ROM Respiratory exam: PRESENT: symmetrical, unlabored, other - coarse lung sounds Cardiovascular exam: PRESENT: RRR Pulses: PRESENT: normal radial pulses, +1 pedal pulses bilateral Vascular exam: PRESENT: normal capillary refill GI/Abdominal exam: PRESENT: soft, other - peg tube. currently clamped. ABSENT: distended Rectal exam: PRESENT: deferred Gentrourinary exam: PRESENT: urethral discharge - pus, indwelling catheter Extremities exam: ABSENT: full ROM - contracted lower extremities Musculoskeletal exam: ABSENT: full ROM Neurological exam: ABSENT: alert, awake, oriented to person, oriented to place, oriented to time, oriented to situation Psychiatric exam: PRESENT: appropriate affect Skin exam: PRESENT: dry, normal color Results Laboratory Results: 10/30/18 05:00 10/30/18 06:30 10/30/18 10/30/18 10/30/18 05:00 05:00 05:00 WBC 13.7 H D RBC 4.51 Hgb 14.3 Hct 41.9 MCV 93 MCH 31.7 MCHC 34.1 RDW 13.2 Plt Count 231 Seg Neutrophils % Not Reportable Lymphocytes % Not Reportable Monocytes % Not Reportable Eosinophils % Not Reportable Basophils % Not Reportable Absolute Neutrophils Not Reportable Absolute Lymphocytes Not Reportable Absolute Monocytes Not Reportable Absolute Eosinophils Not Reportable Absolute Basophils Not Reportable Sodium 134.1 L Potassium 6.4 H* Chloride 81 L Carbon Dioxide 41 H* Anion Gap 12 BUN 37 H Creatinine 1.03 Est GFR ( Amer) > 60 Est GFR (Non-Af Amer) 51 L Glucose 137 H Calcium 9.9 Magnesium 2.6 H TSH 1.47 Free T4 0.99 Free T3 pg/mL 3.23 10/30/18 06:30 WBC RBC Hgb Hct MCV MCH MCHC RDW Plt Count Seg Neutrophils % Lymphocytes % Monocytes % Eosinophils % Basophils % Absolute Neutrophils Absolute Lymphocytes Absolute Monocytes Absolute Eosinophils Absolute Basophils Sodium Potassium 6.9 H* Chloride Carbon Dioxide Anion Gap BUN Creatinine Est GFR ( Amer) Est GFR (Non-Af Amer) Glucose Calcium Magnesium TSH Free T4 Free T3 pg/mL 10/29/18 10/29/18 10/29/18 02:19 08:23 08:23 Creatine Kinase 33 CK-MB (CK-2) 4.60 H Troponin I < 0.012 0.017 NT-Pro-B Natriuret Pep 4730 H 05/10/29/18 10/29/18 14:54 14:54 20:13 Creatine Kinase 21 L 25 L CK-MB (CK-2) 3.13 Troponin I 0.026 NT-Pro-B Natriuret Pep 10/29/18 10/30/18 10/30/18 20:13 13:01 13:01 Creatine Kinase 442 H CK-MB (CK-2) 2.35 2.30 Troponin I 0.025 0.086 NT-Pro-B Natriuret Pep Impressions: Chest X-Ray 10/29/18 02:10 IMPRESSION: No acute cardiopulmonary process copyright 2010 [employer]- All Rights Reserved Status: Imported from PACS Assessment and Plan - Diagnosis (1) Sepsis Qualifiers: Sepsis type: sepsis due to unspecified organism Qualified Code(s): A41.9 - Sepsis, unspecified organism Is this a current diagnosis for this admission?: Yes Plan: Secondary to UTI Rosalio pus in Ly catheter tubing Likely poor hygiene as patient is bed bound, nonverbal and lives at a detention As evidence by (+) UA with large leuk esterase and turbid appearance, hypotension, leukocytosis, and letha Blood and urine cultures pending Lactate < 1.0 Afebrile Empiric coverage with Vanc/Zosyn Maintenance IVF (2) UTI (urinary tract infection) Qualifiers: Urinary tract infection type: acute cystitis Is this a current diagnosis for this admission?: Yes Plan: Urinalysis indicative of UTI turbid appearance and large leuk esterase present Urine culture pending History of UTI - ESBL e.coli, kelbsiella, proteus Initially treated with Rocephin in ED Broadened to Vanc/zosyn (3) Acute respiratory failure with hypoxia Is this a current diagnosis for this admission?: Yes Plan: Secondary to sepsis Patient remains on BIPAP CXR reveals mild pulmonary vascular congestion, R hemidiaphragm, no other pathology Wean as tolerated (4) Pyuria Is this a current diagnosis for this admission?: Yes Plan: See #2 (5) Constipation Qualifiers: Constipation type: unspecified constipation type Qualified Code(s): K59.00 - Constipation, unspecified Is this a current diagnosis for this admission?: Yes Plan: Patient with high residuals Not digesting enteral feeding - currently on hold KUB pending No recorded BM since arrival (6) Parkinson's disease dementia Qualifiers: Dementia behavioral disturbance: without behavioral disturbance Qualified Code(s): G20 - Parkinson's disease; F02.80 - Dementia in other diseases classified elsewhere without behavioral disturbance Is this a current diagnosis for this admission?: Yes Plan: Patient has end-stage Parkinson's disease with dementia. Not taking medications (according to [facility] medication list) (7) Do not resuscitate Is this a current diagnosis for this admission?: Yes - Time Time Spent with patient: 15-24 minutes Medications reviewed and adjusted accordingly: Yes Anticipated discharge: Home Within: within 24 hours - Inpatient Certification Based on my medical assessment, after consideration of the patient's comorbidities, presenting symptoms, or acuity I expect that the services needed warrant INPATIENT care.: Yes I certify that my determination is in accordance with my understanding of Medicare's requirements for reasonable and necessary INPATIENT services [42 CFR 412.3e].: Yes Medical Necessity: Need Close Monitoring Due to Risk of Patient Decompensation, Risk of Complication if Not Cared For in Hospital
[2018-10-31 00:49] LABS: CREATINE KINASE MB 3.81 ng/mL (<4.55); TROPONIN I 0.09 ng/mL
[2018-10-31] MEDS: PIPERACILLIN SODIUM/TAZOBACTAM 3.375 GM in NORMAL SALINE 100 ML IV SCH ×2 (05:15→12:48)
[2018-10-31 06:52] LABS: ABSOLUTE LYMPHOCYTES (AUTO) 0.5 10^3/uL (0.5-4.7); ABSOLUTE MONOCYTES (AUTO) 0.5 10^3/uL (0.1-1.4); ABSOLUTE NEUT (AUTO) 7.9 10^3/uL (1.7-8.2); BASOPHILS % (AUTO) 0.4 % (0-2); EOSINOPHILS % (AUTO) 0.1 % (0-6); HEMATOCRIT 38.8 % (36.0-47.0); HEMOGLOBIN 13.1 g/dL (12.0-15.5); LYMPHOCYTES % (AUTO) 5.1 % (13-45); MEAN CORPUSCULAR HEMOGLOBIN 31.7 pg (27.0-33.4); MEAN CORPUSCULAR HGB CONC 33.8 g/dL (32.0-36.0); MEAN CORPUSCULAR VOLUME 94 fl (80-97); MONOCYTES % (AUTO) 5.2 % (3-13); PLATELET COUNT 206 10^3/uL (150-450); RED BLOOD COUNT 4.12 10^6/uL (3.72-5.28); RED CELL DISTRIBUTION WIDTH 13.3 % (11.5-14.0); SEGMENTED NEUTROPHILS % (AUTO) 89.2 % (42-78); TOTAL CELLS COUNTED % (AUTO) 100 %; WHITE BLOOD COUNT 8.8 10^3/uL (4.0-10.5)
[2018-10-31 07:18] LABS: ALANINE AMINOTRANSFERASE 82 U/L (9-52); ALBUMIN 2.9 g/dL (3.5-5.0); ALKALINE PHOSPHATASE 85 U/L (38-126); ANION GAP 11 (5-19); ASPARTATE AMINO TRANSFERASE 90 U/L (14-36); BILIRUBIN,DIRECT 0.5 mg/dL (0.0-0.4); BILIRUBIN,TOTAL 0.5 mg/dL (0.2-1.3); BLOOD UREA NITROGEN 67 mg/dL (7-20); CALCIUM 8.7 mg/dL (8.4-10.2); CARBON DIOXIDE 38 mmol/L (22-30); CHLORIDE 86 mmol/L (98-107); GLUCOSE 115 mg/dL (75-110); PHOSPHORUS 6.3 mg/dL (2.5-4.5); SODIUM 134.8 mmol/L (137-145); TOTAL PROTEIN 5.9 g/dL (6.3-8.2)
[2018-10-31 07:45] LABS: CREATINE KINASE MB 2.77 ng/mL (<4.55)
[2018-10-31 07:50] LABS: TROPONIN I 0.176 ng/mL
--- NOTE | 2018-10-31 08:50 | RADIOLOGY REPORT (SQ) ---
EXAM DESCRIPTION: KUB/ABDOMEN (SINGLE VIEW) COMPLETED DATE/TIME: 10/31/2018 8:12 am REASON FOR STUDY: eval for constipation COMPARISON: 08/19/2017. NUMBER OF VIEWS: One view. TECHNIQUE: Supine radiographic image of the abdomen acquired. LIMITATIONS: None. FINDINGS: BOWEL GAS PATTERN: Normal bowel gas pattern. Large amount of stool throughout the colon. No dilated loops. CALCIFICATIONS: No suspicious calcifications. SOFT TISSUES: No gross mass or suggestion of organomegaly. HARDWARE: Gastrostomy tube. BONES: No acute fracture. No worrisome bone lesions. OTHER: No other significant finding. IMPRESSION: NO RADIOGRAPHIC EVIDENCE FOR ACUTE ABDOMINAL DISEASE. LARGE AMOUNT OF STOOL CONSISTENT WITH CONSTIPATION. TECHNICAL DOCUMENTATION: JOB ID: [id number] [employer]- All Rights Reserved Reading location - IP/workstation name: [email or web address]
[2018-10-31] MEDS: DOCUSATE SODIUM 100 MG/10 ML UDC PEG SCH (10:56)
[2018-10-31] MEDS: POLYETHYLENE GLYCOL 3350 POWDER 17 GM/1 PACKET PEG SCH (10:56)
[2018-10-31] MEDS: CHOLECALCIFEROL (D3) 1,000 UNIT TABLET PEG SCH (10:56)
[2018-10-31] MEDS: ASCORBIC ACID 500 MG TABLET PEG SCH (10:56)
[2018-10-31] MEDS: MAGNESIUM OXIDE 400 MG TABLET PEG SCH ×2 (10:57→18:16)
[2018-10-31] MEDS: ENOXAPARIN SODIUM INJ 40 MG/0.4 ML DISP.SYRIN SUBCUT SCH (10:57)
[2018-10-31] MEDS: METOCLOPRAMIDE HCL INJ/PF 10 MG/2 ML SDV IV SCH ×3 (10:57→18:16)
[2018-10-31] MEDS: FAMOTIDINE 20 MG TABLET PEG SCH (10:57)
[2018-10-31] MEDS: CYANOCOBALAMIN (VITAMIN B-12) 1,000 MCG TABLET PEG SCH (10:58)
[2018-10-31] MEDS: MULTIVITS W-MIN/IRON SOLN 60 ML PEG SCH (12:33)
[2018-10-31 13:45] LABS: CREATINE KINASE MB 2.21 ng/mL (<4.55); TROPONIN I 0.256 ng/mL
[2018-10-31] MEDS: VANCOMYCIN HCL 750 MG in DEXTROSE 5%-WATER 250 ML IV SCH (14:05)
--- NOTE | 2018-10-31 18:12 | PDOC TRANSFER SUMMARY ---
General Admission Date/PCP: 10/29/18 03:56 ANJEL CANNON MD Admission Date: 10/29/18 Transfer Date: 10/31/18 Accepting Facility: [facility] Accepting Physician: Dr. Pelayo Resuscitation Status: Do Not Resuscitate - Transfer Diagnosis (1) Sepsis Is this a current diagnosis for this admission?: Yes (2) UTI (urinary tract infection) Is this a current diagnosis for this admission?: Yes (3) Acute respiratory failure with hypoxia Is this a current diagnosis for this admission?: Yes (4) Pyuria Is this a current diagnosis for this admission?: Yes (5) Constipation Is this a current diagnosis for this admission?: Yes (6) Parkinson's disease dementia Is this a current diagnosis for this admission?: Yes (7) Do not resuscitate Is this a current diagnosis for this admission?: Yes - Transfer Medications Home Medications: Acetaminophen [Pediacare Fever Therapeutic Mentor] 650 mg PEG Q6HP PRN 06/24/18 Ascorbic Acid [Vitamin C] 1,000 mg PEG DAILY 06/24/18 Cholecalciferol (Vitamin D3) [Vitamin D3 1000 Unit Tablet] 1,000 unit PEG DAILY 06/24/18 Cranberry Extract [Cranberry 250 mg Tablet] 250 mg PEG BID 06/24/18 Cyanocobalamin (Vitamin B-12) [Vitamin B-12 1000 mcg Tablet] 1,000 mcg PEG DAILY 06/24/18 Docusate Sodium [Colace Udc 100 mg/10 ml Oral Soln] 100 mg PEG DAILY 06/24/18 Eyelid Cleanser Combination 3 [Ocusoft Lid Scrub Plus] 1 applic OU QAM 06/24/18 Famotidine [Pepcid] 20 mg PEG DAILY 06/24/18 Ipratropium/Albuterol Sulfate [Duoneb 3 ml Ampul] 3 ml NEB Q8HP PRN 06/24/18 Latanoprost/Pf [Latanoprost 0.005% Eye Drop] 1 drop OD QHS 06/24/18 Magnesium Hydroxide [Milk of Magnesia 30 ml Udcup] 30 ml PEG DAILYP PRN 06/24/18 Magnesium Oxide [Magox] 400 mg PEG BID 06/24/18 Multivitamin [My Favorite Multiple] 30 ml PEG QAM 06/24/18 Pot Chl 10% Danielle 20meq/15ml 10 ml PEG DAILY 06/24/18 Psyllium Husk (with Sugar) [Metamucil Packet] 3.4 gm PEG BID 06/24/18 Albuterol Sulfate [Ventolin 0.083% Neb 2.5 mg/3 mL Ampul] 1 vial NEB Q6HP PRN 10/29/18 Polyvinyl Alcohol [Liquitears 1.4% Ophth Soln 15 ml] 1 drop OU Q8 10/29/18 Transfer Medications: Current Medications Acetaminophen (Tylenol Soln 325 Mg/10.15 Ml Udcup) 650 mg PEG Q4HP PRN PRN Reason: FOR PAIN OR TEMP Stop: 11/28/18 05:05 Ascorbic Acid (Vitamin C 500 Mg Tablet) 1,000 mg PEG DAILY [facility] Stop: 11/28/18 09:59 Last Admin: 10/31/18 10:56 Dose: 1,000 mg Documented by: Cholecalciferol (Vitamin D3 1000 Unit Tablet) 1,000 unit PEG DAILY [facility] Stop: 11/28/18 09:59 Last Admin: 10/31/18 10:56 Dose: 1,000 unit Documented by: Cyanocobalamin (Vitamin B-12 1000 Mcg Tablet) 1,000 mcg PEG DAILY [facility] Stop: 11/28/18 09:59 Last Admin: 10/31/18 10:58 Dose: 1,000 mcg Documented by: Docusate Sodium (Colace Udc 100 Mg/10 Ml Oral Soln) 100 mg PEG DAILY [facility] Stop: 11/28/18 09:59 Last Admin: 10/31/18 10:56 Dose: 100 mg Documented by: Enoxaparin Sodium (Lovenox Inj 40 Mg/0.4 Ml Disp.Syrin) 40 mg SUBCUT DAILY [facility] Stop: 11/28/18 09:59 Last Admin: 10/31/18 10:57 Dose: 40 mg Documented by: Famotidine (Pepcid 20 Mg Tablet) 20 mg PEG DAILY [facility] Stop: 11/28/18 09:59 Last Admin: 10/31/18 10:57 Dose: 20 mg Documented by: Ferrous Gluconate (Certavite Multivit/Minerals/Iron Soln) 15 ml PEG DAILY [facility] Stop: 11/28/18 09:59 Last Admin: 10/31/18 12:33 Dose: Not Given Documented by: Hydralazine HCl (Apresoline Inj/Pf 20 Mg/1 Ml Sdv) 20 mg IV Q4HP PRN PRN Reason: Give For Sbp > 160 / Dbp > 100 Stop: 11/28/18 04:10 Vancomycin HCl 750 mg/ (Dextrose) 250 mls @ 166.667 mls/hr IV NOON [facility] Stop: 11/06/18 11:59 Last Admin: 10/31/18 14:05 Dose: 110 mls/hr, 110 mls/hr Documented by: Sodium Chloride (Nacl 0.9% 1000 Ml Iv Soln) 1,000 mls @ 55 mls/hr IV CONTINUOUS PRN PRN Reason: THIS MED IS NOT "PRN" Stop: 11/29/18 16:47 Last Admin: 10/31/18 05:19 Dose: 55 mls/hr Documented by: Latanoprost (Xalatan 0.005% Oph Soln 2.5 Ml) 1 drop OU QHS [facility] Stop: 11/28/18 21:59 Last Admin: 10/30/18 21:46 Dose: 1 drop Documented by: Levalbuterol HCl (Xopenex Neb 0.63 Mg/3 Ml Ampul) 0.63 mg NEB RTQ2HP PRN PRN Reason: SHORTNESS OF BREATH Stop: 11/28/18 04:10 Magnesium Hydroxide (Milk Of Magnesia 30 Ml Udcup) 30 ml PEG DAILYP PRN PRN Reason: FOR CONSTIPATION Stop: 11/28/18 04:58 Magnesium Oxide (Mag-Ox 400 Mg Tablet) 400 mg PEG BID [facility] Stop: 11/28/18 09:59 Last Admin: 10/31/18 10:57 Dose: 400 mg Documented by: Metoclopramide HCl (Reglan Inj/Pf 10 Mg/2 Ml Sdv) 10 mg IV ACHS [facility] Stop: 11/29/18 07:59 Last Admin: 10/31/18 12:33 Dose: Not Given Documented by: Ondansetron HCl (Zofran Inj/Pf 4 Mg/2 Ml Sdv) 4 mg IV Q4HP PRN PRN Reason: FOR NAUSEA/VOMITING Stop: 11/28/18 04:04 Polyethylene Glycol (Miralax Powder 17 Gm/Packet) 17 gm PEG DAILY [facility] Stop: 11/28/18 09:59 Last Admin: 10/31/18 10:56 Dose: 17 gm Documented by: Potassium Chloride (Potassium Chloride 20 Meq Packet) 20 meq PEG DAILY [facility] Stop: 11/28/18 09:59 Last Admin: 10/29/18 10:26 Dose: 20 meq Documented by: Sodium Chloride (Saline Flush 2.5 Ml Monoject Prefil Syrin) 2.5 ml IV Q8 [facility] Stop: 11/28/18 05:59 Last Admin: 10/31/18 14:06 Dose: Not Given Documented by: - Allergies Allergies/Adverse Reactions: Sulfa (Sulfonamide Antibiotics) Allergy (Severe, Verified 04/11/16 18:16) tongue levofloxacin [From Levaquin] Allergy (Verified 04/11/16 18:16) nickel [Nickel] Allergy (Verified 04/11/16 18:16) - Diet/Activity Discharge Diet: Tube Feeding (Comments) Hospital Course Hospital Course: H&P: RADHA MENA is a 87 year old female who presented from the [facility] via EMS on the electronic equipment installer of admission. She was found and by staff dyspneic and struggling to breathe. When EMS arrived patient was started having O2 sat in the 70s and a initiated [id number] resuscitation in route to the hospital. 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 In the emergency room she was found to be hypoxic and possibly hypercapnic. She was started on BiPAP with excellent response. Chest x-ray did not reveal significant clinical changes per report. BNP was elevated. Patient was subsequently admitted to hospital for further evaluation and treatment. HOSPITAL COURSE: 87 y.o. F with a PMH HLD, bronchitis, Parkinsons, DM type 2, from [facility] presented to [facility] ED for SOB and dyspnea requiring BIPAP. Elevated BNP to 4730. UA was (+) for UTI - turbid appearance with large leuk esterase. The patient was given Rocephin in ED, switched to Vancomycin and Zosyn once inpatient. BNP elevated to >4000. Cardiomegaly and pulmonary vascular congestion on CXR. According to family, the patient has no history of CHF. Echocardiogram obtained. Unfortunately the images are poor quality. LVEF is determined to be normal. Patient was treated with IVF and antibiotics for her UTI/sepsis. Her BNP continued to rise, peaking at 18,000. Patient began showing signs of volume overload -periorbital edema, coarse lung sounds, trace edema in the hips and thighs. As a result, her maintenance IVF was discontinued and the patient was subsequently treated with Lasix to help alleviate her volume overload. Unfortunately, the patient did not adequately diurese. In fact, her weight has remained 63 kg throughout her hospitalization. Her creatinine upon arrival was 0.3. Over the course of 48 hours her creatinine has acutely risen to 2.3. She remains hypervolemic and is becoming more and more oliguric. Her physical assessment has not changed. She remains on BIPAP. Eyes closed, nonverbal, bedbound, lower extremities contracted. Lungs are coarse to auscultation. The patient does not appear to be in distress, she is breathing comfortably on the BIPAP. Her tidal volumes are low and minute ventilation is only 3. Pulses are faint in the upper and lower extremities. Clumps of pus are seen in the Ly catheter tubing. Discussed treatment options with the family. They expressed an interest in dialysis. Despite the patient being a DNR/DNI, they wish to pursue all other medical treatment possible. Nephrology is, unfortunately, unavailable over the weekends at [facility]. Discussed the patient's case with Dr. Pelayo of [facility], who graciously accepted the patient. Plan to obtain renal ultrasound while patient is waiting for transfer to [facility]. Physical Exam Vital Signs: Temp Pulse Resp BP Pulse Ox 97.8 F 89 16 107/45 L 100 10/31/18 16:00 10/31/18 16:00 10/31/18 16:00 10/31/18 16:00 10/31/18 16:00 Intake & Output 10/30/18 10/31/18 11/01/18 06:59 06:59 06:59 Intake Total 550 1150 100 Output Total 925 150 Balance -375 1000 100 Weight 62.4 kg 63.1 kg General appearance: PRESENT: thin Eye exam: PRESENT: conjunctiva pink, periorbital swelling - MILD, PERRLA Mouth exam: PRESENT: tongue midline Teeth exam: PRESENT: poor dentation Neck exam: PRESENT: full ROM Respiratory exam: PRESENT: rhonchi, symmetrical, unlabored, other - SHALLOW RESPIRATIONS. ABSENT: accessory muscle use Cardiovascular exam: PRESENT: RRR Pulses: PRESENT: +1 pedal pulses bilateral. ABSENT: normal radial pulses - FAINT Vascular exam: PRESENT: normal capillary refill GI/Abdominal exam: PRESENT: soft, other - peg tube. ABSENT: distended, tenderness Rectal exam: PRESENT: deferred Extremities exam: ABSENT: full ROM - LOWER EXT CONTRACTED, pedal edema Musculoskeletal exam: ABSENT: ambulatory, full ROM - LOWER EXT CONTRACTED Neurological exam: ABSENT: alert, awake, oriented to person, oriented to place, oriented to time, oriented to situation Skin exam: PRESENT: dry, intact Results Laboratory Results: 10/31/18 06:23 10/31/18 06:23 10/30/18 10/30/18 10/31/18 20:58 20:58 06:23 WBC 8.8 RBC 4.12 Hgb 13.1 Hct 38.8 MCV 94 MCH 31.7 MCHC 33.8 RDW 13.3 Plt Count 206 Seg Neutrophils % 89.2 H Lymphocytes % 5.1 L Monocytes % 5.2 Eosinophils % 0.1 Basophils % 0.4 Absolute Neutrophils 7.9 Absolute Lymphocytes 0.5 Absolute Monocytes 0.5 Absolute Eosinophils 0.0 Absolute Basophils 0.0 Sodium 134.7 L Potassium 5.3 H Chloride 83 L Carbon Dioxide 41 H* Anion Gap 11 BUN 57 H Creatinine 1.77 H Est GFR ( Amer) 33 L Est GFR (Non-Af Amer) 27 L Glucose 72 L Lactic Acid 1.9 Calcium 9.5 Phosphorus Magnesium Total Bilirubin AST ALT Alkaline Phosphatase Total Protein Albumin 10/31/18 06:23 WBC RBC Hgb Hct MCV MCH MCHC RDW Plt Count Seg Neutrophils % Lymphocytes % Monocytes % Eosinophils % Basophils % Absolute Neutrophils Absolute Lymphocytes Absolute Monocytes Absolute Eosinophils Absolute Basophils Sodium 134.8 L Potassium 5.0 Chloride 86 L Carbon Dioxide 38 H Anion Gap 11 BUN 67 H Creatinine 2.31 H Est GFR ( Amer) 24 L Est GFR (Non-Af Amer) 20 L Glucose 115 H Lactic Acid Calcium 8.7 Phosphorus 6.3 H Magnesium 2.5 H Total Bilirubin 0.5 AST 90 H ALT 82 H Alkaline Phosphatase 85 Total Protein 5.9 L Albumin 2.9 L 10/29/18 03:04 Catheterized Urine Urine Culture - Final Providencia Stuartii 10/29/18 10/29/18 10/29/18 02:19 08:23 08:23 Creatine Kinase 33 CK-MB (CK-2) 4.60 H Troponin I < 0.012 0.017 NT-Pro-B Natriuret Pep 4730 H 10/29/18 10/29/18 10/29/18 14:54 14:54 20:13 Creatine Kinase 21 L 25 L CK-MB (CK-2) 3.13 Troponin I 0.026 NT-Pro-B Natriuret Pep 10/29/18 10/30/18 10/30/18 20:13 13:01 13:01 Creatine Kinase 442 H CK-MB (CK-2) 2.35 2.30 Troponin I 0.025 0.086 NT-Pro-B Natriuret Pep 10/30/18 10/30/18 10/30/18 17:50 17:50 17:50 Creatine Kinase 470 H CK-MB (CK-2) 2.69 Troponin I 0.074 NT-Pro-B Natriuret Pep 25165 H 10/31/18 10/31/18 10/31/18 00:10 00:10 07:03 Creatine Kinase 428 H CK-MB (CK-2) 3.81 2.77 Troponin I 0.090 0.176 NT-Pro-B Natriuret Pep 10/31/18 10/31/18 10/31/18 07:03 07:03 12:36 Creatine Kinase 382 H CK-MB (CK-2) 2.21 Troponin I 0.256 NT-Pro-B Natriuret Pep 68214 H 10/31/18 12:36 Creatine Kinase 302 H CK-MB (CK-2) Troponin I NT-Pro-B Natriuret Pep Impressions: Chest X-Ray 10/29/18 02:10 IMPRESSION: No acute cardiopulmonary process copyright 2011 [employer]- All Rights Reserved KUB X-Ray 10/31/18 05:59 IMPRESSION: NO RADIOGRAPHIC EVIDENCE FOR ACUTE ABDOMINAL DISEASE. LARGE AMOUNT OF STOOL CONSISTENT WITH CONSTIPATION. Status: Imported from PACS Plan Discharge Plan: TRANSFER TO [facility] Time Spent: Greater than 30 Minutes
[2018-10-31 19:13] LABS: CREATINE KINASE MB 1.76 ng/mL (<4.55); TROPONIN I 0.359 ng/mL
[2018-10-31 19:33] LABS: ARTERIAL BLOOD BASE EXCESS 5.5 mmol/L; ARTERIAL BLOOD H2CO3 2.23 mmol/L (1.05-1.35); ARTERIAL BLOOD HCO3 34.4 mmol/L (20-24); ARTERIAL BLOOD O2 SATURATION 98.6 % (94-98); ARTERIAL BLOOD PH 7.28 (7.35-7.45); ARTERIAL BLOOD PO2 153.2 mmHg (80-100); ARTERIAL BLOOD TOTAL CO2 36.6 mmol/L (21-25)
[2018-10-31 19:34] LABS: ARTERIAL BLOOD FIO2 60%
[2018-10-31 19:37] LABS: ARTERIAL BLOOD PCO2 74.1 mmHg (35-45)
[2018-10-31 21:14] LABS: ARTERIAL BLOOD BASE EXCESS 6.1 mmol/L; ARTERIAL BLOOD FIO2 40%; ARTERIAL BLOOD H2CO3 1.99 mmol/L (1.05-1.35); ARTERIAL BLOOD HCO3 33.9 mmol/L (20-24); ARTERIAL BLOOD PCO2 66.1 mmHg (35-45); ARTERIAL BLOOD PH 7.33 (7.35-7.45); ARTERIAL BLOOD PO2 100.5 mmHg (80-100); ARTERIAL BLOOD TOTAL CO2 35.9 mmol/L (21-25)
[2018-11-01] MEDS: METOCLOPRAMIDE HCL INJ/PF 10 MG/2 ML SDV IV SCH ×5 (01:04→21:19)
[2018-11-01] MEDS: LATANOPROST 0.005% OPH SOLN 2.5 ML OU SCH ×2 (01:05→21:17)
[2018-11-01] MEDS ORDERED: PHENYLEPHRINE HCL INJ/PF 10 MG/1 ML SDV ONE (02:45)
[2018-11-01] MEDS ORDERED: DEXTROSE 5%-WATER 250 ML with PHENYLEPHRINE HCL 40 MG IV PRN ×2 (03:02)
[2018-11-01 04:12] LABS: ABSOLUTE LYMPHOCYTES (AUTO) 0.6 10^3/uL (0.5-4.7); ABSOLUTE MONOCYTES (AUTO) 0.7 10^3/uL (0.1-1.4); BASOPHILS % (AUTO) 0.3 % (0-2); EOSINOPHILS % (AUTO) 0.1 % (0-6); HEMATOCRIT 35.2 % (36.0-47.0); LYMPHOCYTES % (AUTO) 6.7 % (13-45); MEAN CORPUSCULAR HEMOGLOBIN 31.3 pg (27.0-33.4); MEAN CORPUSCULAR VOLUME 92 fl (80-97); MONOCYTES % (AUTO) 7.2 % (3-13); PLATELET COUNT 202 10^3/uL (150-450); RED BLOOD COUNT 3.82 10^6/uL (3.72-5.28); RED CELL DISTRIBUTION WIDTH 13.3 % (11.5-14.0); SEGMENTED NEUTROPHILS % (AUTO) 85.7 % (42-78); TOTAL CELLS COUNTED % (AUTO) 100 %; WHITE BLOOD COUNT 9.4 10^3/uL (4.0-10.5)
[2018-11-01 04:31] LABS: ANION GAP 14 (5-19); CALCIUM 8.4 mg/dL (8.4-10.2); CARBON DIOXIDE 33 mmol/L (22-30); CHLORIDE 90 mmol/L (98-107); GLUCOSE 130 mg/dL (75-110); SODIUM 137.4 mmol/L (137-145)
[2018-11-01 05:12] LABS: BLOOD UREA NITROGEN 90 mg/dL (7-20); POTASSIUM 3.4 mmol/L (3.6-5.0)
--- NOTE | 2018-11-01 06:16 | Progress Note ---
Provider Note Provider Note: Critical care note: 11/01/2018 Critical care onset (face to patient): 1:41 AM Critical care situation, hypotension and worsening respiratory failure. Plans been made to transfer the patient to [facility] however when the transport team arrived they found the patient to be too unstable to transport. They request that patient be intubated and that she be started on pressor agents. The patient had been started on AVAPS prior to the arrival of the transport team to help support her oxygenation. Her blood pressure was 84 systolic upon their arrival and they initiated a Levophed drip. I discussed with the family at length the need for intubation if they wish to have their loved one transferred. 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 They did agree to being transferred to the ICU for the continued use of pressor agents and they did agree to continued use of advanced airway pressure support therapy. Exam showed the patient to be significantly tachypneic with very poor air movement. She was also noted to be mildly tachycardic and to have significantly diminished peripheral pulses. Patient was subsequently transferred to the ICU for further treatment. In the ICU the patient was placed on a Tashi-Synephrine infusion to provide blood pressure support and she was also continued on her AVAPS with an increased respiratory rate of 20. Critical care and time: 2:03 AM Total critical care time: 22 minutes
--- NOTE | 2018-11-01 08:20 | RADIOLOGY REPORT (SQ) ---
EXAM DESCRIPTION: U/[employer] L[employer] COMPLETED DATE/TIME: 11/01/2018 4:19 am REASON FOR STUDY: letha COMPARISON: None. TECHNIQUE: Dynamic and static grayscale images acquired of the kidneys and bladder and recorded on P ACS. Additional selected color Doppler and spectral images recorded. LIMITATIONS: None. FINDINGS: RIGHT KIDNEY: Normal size. Normal echogenicity. 9.5 cm cyst. No solid or suspicious masses. No hydronephrosis. No calcifications. LEFT KIDNEY: Normal size. Normal echogenicity. 5.5 cm cyst. No solid or suspicious masses. No hydronephrosis. No calcifications. BLADDER: Empty. Catheter present. OTHER FINDINGS: No other significant finding. IMPRESSION: BILATERAL RENAL CORTICAL CYSTS. NO HYDRONEPHROSIS. TECHNICAL DOCUMENTATION: JOB ID: [id number] [employer]- All Rights Reserved Reading location - IP/workstation name: [email or web address]
[2018-11-01 09:14] LABS: ARTERIAL BLOOD BASE EXCESS 5.3 mmol/L; ARTERIAL BLOOD H2CO3 1.87 mmol/L (1.05-1.35); ARTERIAL BLOOD HCO3 33.1 mmol/L (20-24); ARTERIAL BLOOD O2 SATURATION 94.5 % (94-98); ARTERIAL BLOOD PH 7.35 (7.35-7.45); ARTERIAL BLOOD PO2 77.5 mmHg (80-100)
[2018-11-01 09:16] LABS: ARTERIAL BLOOD FIO2 70%
[2018-11-01] MEDS: MULTIVITS W-MIN/IRON SOLN 60 ML PEG SCH (10:31)
[2018-11-01] MEDS: DOCUSATE SODIUM 100 MG/10 ML UDC PEG SCH (10:31)
[2018-11-01] MEDS: MAGNESIUM OXIDE 400 MG TABLET PEG SCH ×2 (10:31→23:15)
[2018-11-01] MEDS: FAMOTIDINE 20 MG TABLET PEG SCH (10:32)
[2018-11-01] MEDS: ASCORBIC ACID 500 MG TABLET PEG SCH (10:32)
[2018-11-01] MEDS: CYANOCOBALAMIN (VITAMIN B-12) 1,000 MCG TABLET PEG SCH (10:32)
[2018-11-01] MEDS: POLYETHYLENE GLYCOL 3350 POWDER 17 GM/1 PACKET PEG SCH (10:32)
[2018-11-01] MEDS: CHOLECALCIFEROL (D3) 1,000 UNIT TABLET PEG SCH (10:33)
[2018-11-01] MEDS ORDERED: BISACODYL 10 MG SUPP.RECT PR ONE (11:53)
--- NOTE | 2018-11-01 11:59 | PDOC PROGRESS REPORT ---
Subjective Progress Note for:: 11/01/18 Subjective:: RADHA MENA is a 87 year old female who presented from the [facility] via EMS on the early childhood education coordinator of admission. She was found and by staff dyspneic and struggling to breathe. When EMS arrived patient was started having O2 sat in the 70s and a initiated [id number] resuscitation in route to the hospital. 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 In the emergency room she was found to be hypoxic and possibly hypercapnic. She was started on BiPAP with excellent response. Chest x-ray did not reveal significant clinical changes per report. BNP was elevated. Patient was subsequently admitted to hospital for further evaluation and treatment. HOSPITAL COURSE: 87 y.o. F with a PMH HLD, bronchitis, Parkinsons, DM type 2, from [facility] presented to [facility] ED for SOB and dyspnea requiring BIPAP. Elevated BNP to 4730. UA was (+) for UTI - turbid appearance with large leuk esterase. The patient was given Rocephin in ED, switched to Vancomycin and Zosyn once inpatient. BNP elevated to >4000. Cardiomegaly and pulmonary vascular congestion on CXR. According to family, the patient has no history of CHF. Echocardiogram obtained. Unfortunately the images are poor quality. LVEF is determined to be normal. Patient was treated with IVF and antibiotics for her UTI/sepsis. Her BNP continued to rise, peaking at 18,000. Patient began show ing signs of volume overload -periorbital edema, coarse lung sounds, trace edema in the hips and thighs. As a result, her maintenance IVF was discontinued and the patient was subsequently treated with Lasix to help alleviate her volume overload. Unfortunately, the patient did not adequately diurese. In fact, her weight has remained 63 kg throughout her hospitalization. Her creatinine upon arrival was 0.3. Over the course of 48 hours her creatinine has acutely risen to 2.3. She remains hypervolemic and is becoming more and more oliguric. Her physical assessment has not changed. She remains on BIPAP. Eyes closed, nonverbal, bedbound, lower extremities contracted. Lungs are coarse to auscu ltation. The patient does not appear to be in distress, she is breathing comfortably on the BIPAP. Her tidal volumes are low and minute ventilation is only 3. Pulses are faint in the upper and lower extremities. Clumps of pus are seen in the Ly catheter tubing. Discussed treatment options with the family. They expressed an interest in dialysis. Despite the patient being a DNR/DNI, they wish to pursue all other medical treatment possible. Nephrology is, unfortunately, unavailable over the weekends at [facility]. Discussed the patient's case with Dr. Pelayo of [facility], who graciously accepted the patient. Plan to obtain renal ultrasound while patient is waiting for transfer to [facility]. 11/01/2018. Plans was made to transfer the patient to [facility] however when the transport team arrived they found the patient to be too unstable to transport. They requested the patient to be intubated and that she be started on pressor agents. The patient had been started on AVAPS prior to the arrival of the transport team to help support her oxygenation. Her blood pressure was 84 systolic upon their arrival and they initiated a Levophed drip. As per Dr. Shagufta abreu's note he had discussed at length with the family the need for intubation if they wish to have their loved one transferred. The patient's medical power of criminal attorney was very adamant that she did not want to be intubated or ventilated and that this was not going to be something would be done during her hospital course. They did agree to being transferred to the ICU for the continued use of pressor agents and they did agree to continued use of advanced airway pressure support therapy. Exam showed the patient to be significantly tachypneic with very poor air mo vement. She was also noted to be mildly tachycardic and to have significantly diminished peripheral pulses. Patient was subsequently transferred to the ICU for further treatment. In the ICU the patient was placed on a Tashi-Synephrine infusion to provide blood pressure support and she was also continued on her AVAPS with an increased respiratory rate of 20. The charge nurse in ICU to the transport to see how we could facilitate patient's transfer. They had stated they may be able to answer the patient to [facility] however he would like to know what to do if the patient codes in route to [facility], patient is DNR and DNI. Also contacted [facility] and they stated the transfer is being canceled that has to be reinitiated if the patient needs to be transferred. Had a very lengthy discussion with 2 of her daughters whom is the POA updated them about patient's critical status and possible course of actions. One course of action would be to reinitiate transfer to [facility] but the patient might need to be intubated en route to [facility] if she becomes too critical but family did not want intubation under any circumstances. Other course of action would be to keep the patient here in ICU on BiPAP, pressors and consult nephrology early childhood education coordinator tomorrow possible urgent hemodialysis, while the patient fully understands that the patient is very critical and may not make it till tomorrow. Family would like to pursue the second option, to mention if she is not a candidate for hemodialysis and is still too critical they will go ahead and change her CODE STATUS to ABA THERAPIST. Currently off of Tashi-Synephrine with MAP>60; however she is becoming more hypoxic, hypercapnic and tachypneic. Reason For Visit: ACUTE RESPIRATORY FAILURE WITH HYPOXIA Physical Exam Vital Signs: Temp Pulse Resp BP Pulse Ox 97.9 F 105 H 19 127/84 H 95 11/01/18 10:00 11/01/18 10:00 11/01/18 10:00 11/01/18 10:00 11/01/18 10:00 Intake & Output 10/31/18 11/01/18 11/02/18 06:59 06:59 06:59 Intake Total 1150 367 Output Total 150 95 50 Balance 1000 272 -50 Weight 63.1 kg 64.6 kg Results Laboratory Results: 11/01/18 04:04 11/01/18 04:04 10/31/18 10/31/18 11/01/18 18:50 20:55 04:04 WBC 9.4 RBC 3.82 Hgb 12.0 Hct 35.2 L MCV 92 MCH 31.3 MCHC 34.0 RDW 13.3 Plt Count 202 Seg Neutrophils % 85.7 H Lymphocytes % 6.7 L Monocytes % 7.2 Eosinophils % 0.1 Basophils % 0.3 Absolute Neutrophils 8.0 Absolute Lymphocytes 0.6 Absolute Monocytes 0.7 Absolute Eosinophils 0.0 Absolute Basophils 0.0 Carbonic Acid 2.23 H 1.99 H HCO3/H2CO3 Ratio 15:1 17:1 ABG pH 7.28 L 7.33 L ABG pCO2 74.1 H* 66.1 H ABG pO2 153.2 H 100.5 H ABG HCO3 34.4 H 33.9 H ABG O2 Saturation 98.6 H 97.0 ABG Base Excess 5.5 6.1 FiO2 60% 40% Sodium Potassium Chloride Carbon Dioxide Anion Gap BUN Creatinine Est GFR ( Amer) Est GFR (Non-Af Amer) Glucose Calcium Magnesium 11/01/18 11/01/18 04:04 08:56 WBC RBC Hgb Hct MCV MCH MCHC RDW Plt Count Seg Neutrophils % Lymphocytes % Monocytes % Eosinophils % Basophils % Absolute Neutrophils Absolute Lymphocytes Absolute Monocytes Absolute Eosinophils Absolute Basophils Carbonic Acid 1.87 H HCO3/H2CO3 Ratio 17:1 ABG pH 7.35 ABG pCO2 62.0 H ABG pO2 77.5 L ABG HCO3 33.1 H ABG O2 Saturation 94.5 ABG Base Excess 5.3 FiO2 70% Sodium 137.4 Potassium 3.4 L D Chloride 90 L Carbon Dioxide 33 H Anion Gap 14 BUN 90 H D Creatinine 2.99 H Est GFR ( Amer) 18 L Est GFR (Non-Af Amer) 15 L Glucose 130 H Calcium 8.4 Magnesium 2.5 H 10/29/18 03:04 Catheterized Urine [facility] 10[facility]29[facility]18 10/29/18 10/29/18 02:19 08:23 08:23 Creatine Kinase 33 CK-MB (CK-2) 4.60 H Troponin I < 0.012 0.017 NT-Pro-B Natriuret Pep 4730 H 10/29/18 10/29/18 10/29/18 14:54 14:54 20:13 Creatine Kinase 21 L 25 L CK-MB (CK-2) 3.13 Troponin I 0.026 NT-Pro-B Natriuret Pep 10/29/18 10/30/18 10/30/18 20:13 13:01 13:01 Creatine Kinase 442 H CK-MB (CK-2) 2.35 2.30 Troponin I 0.025 0.086 NT-Pro-B Natriuret Pep 10/30/18 10/30/18 10/30/18 17:50 17:50 17:50 Creatine Kinase 470 H CK-MB (CK-2) 2.69 Troponin I 0.074 NT-Pro-B Natriuret Pep 33938 H 10/31/18 10/31/18 10/31/18 00:10 00:10 07:03 Creatine Kinase 428 H CK-MB (CK-2) 3.81 2.77 Troponin I 0.090 0.176 NT-Pro-B Natriuret Pep 10/31/18 10/31/18 10/31/18 07:03 07:03 12:36 Creatine Kinase 382 H CK-MB (CK-2) 2.21 Troponin I 0.256 NT-Pro-B Natriuret Pep 63385 H 10/31/18 10/31/18 10/31/18 12:36 18:35 18:35 Creatine Kinase 302 H 243 H CK-MB (CK-2) 1.76 Troponin I 0.359 NT-Pro-B Natriuret Pep Impressions: Chest X-Ray 10/29/18 02:10 IMPRESSION: No acute cardiopulmonary process copyright 2010 [employer]- All Rights Reserved KUB X-Ray 10/31/18 05:59 IMPRESSION: NO RADIOGRAPHIC EVIDENCE FOR ACUTE ABDOMINAL DISEASE. LARGE AMOUNT OF STOOL CONSISTENT WITH CONSTIPATION. Renal Ultrasound 10/31/18 19:13 IMPRESSION: BILATERAL RENAL CORTICAL CYSTS. NO HYDRONEPHROSIS. Assessment and Plan - Diagnosis (1) Acute respiratory failure with hypoxia and hypercapnia Is this a current diagnosis for this admission?: Yes Plan: Acute systolic heart failure likely caused secondary to load due to underlying worsening renal failure. 11/01/2018: SBP 9297, T-max 98 0.0, [place] [address], SPO2 96% FiO2 70% BiPAP. ABG: pH 0.35, PCO2 62.0, PO2 77.5, FiO2 70%. BNP 18,000, trops 0.256, 0.359 WBC 9.4, hgb 12.0, plt 202, drier take off tender 2.99 up from 0.30 on admission, baseline 0.5, FSBG 130, mg 2.5, Continue BiPAP, pressors as needed, strict in and out, volume restriction, monitor vitals, monitor electrolytes and replace as needed. Consult nephrology for urgent hemodialysis. 10/29/2018. Urine culture positive for procidentia stuariti sensitive to ceftriaxone. 10/28/2018. Renal ultrasound bilateral renal cortical cyst. No hydronephrosis. 10/31/2018. KUB. No radiographic evidence for acute abdominal disease, large amount of stool consistent with constipation. 11/01/2018. Plans was made to transfer the patient to [facility] however when the transport team arrived they found the patient to be too unstable to transport. They requested the patient to be intubated and that she be started on pressor agents. The patient had been started on AVAPS prior to the arrival of the transport team to help support her oxygenation. Her blood pressure was 84 systolic upon their arrival and they initiated a Levophed drip. As per Dr. Shagufta abreu's note he had discussed at length with the family the need for intubation if they wish to have their loved one transferred. The patient's medical power of criminal attorney was very adamant that she did not want to be intubated or ventilated and that this was not going to be something would be done during her hospital course. They did agree to being transferred to the ICU for the continued use of pressor agents and they did agree to continued use of advanced airway pressure support therapy. Exam showed the patient to be significantly tachypneic with very poor air movement. She was also noted to be mildly tachycardic and to have significantly diminished peripheral pulses. Patient was subsequently transferred to the ICU for further treatment. In the ICU the patient was placed on a Tashi-Synephrine infusion to provide blood pressure support and she was also continued on her AVAPS with an increased respiratory rate of 20. The charge nurse in ICU to the transport to see how we could facilitate patient's transfer. They had stated they may be able to answer the patient to [facility] however he would like to know what to do if the patient codes in route to [facility], patient is DNR and DNI. Also contacted [facility] and they stated the transfer is being canceled that has to be reinitiated if the patient needs to be transferred. Had a very lengthy discussion with 2 of her daughters whom is the POA updated them about patient's critical status and possible course of actions. One course of action would be to reinitiate transfer to [facility] but the patient might need to be intubated en route to [facility] if she becomes too critical but family did not want intubation under any circumstances. Other course of action would be to keep the patient here in ICU on BiPAP, pressors and consult nephrolo gy early childhood education coordinator tomorrow possible urgent hemodialysis, while the patient fully understands that the patient is very critical and may not make it till tomorrow. Family would like to pursue the second option, to mention if she is not a candidate for hemodialysis and is still too critical they will go ahead and change her CODE STATUS to ABA THERAPIST. Currently off of Tashi-Synephrine with MAP>60; however she is becoming more hypoxic, hypercapnic and tachypneic. (2) Cardiogenic shock Is this a current diagnosis for this admission?: Yes Plan: Secondary to #1 11/01/2018: SBP 9297, T-max 98 0.0, [place] [address], SPO2 96% FiO2 70% BiPAP. ABG: pH 0.35, PCO2 62.0, PO2 77.5, FiO2 70%. BNP 18,000, trops 0.256, 0.359 Currently off of Tashi-Synephrine with MAP>60; however she is becoming more hypoxic, hypercapnic and tachypneic. Continue BiPAP, pressors as needed, strict in and out, volume restriction, monitor vitals, monitor electrolytes and replace as needed. Consult nephrology for urgent hemodialysis. (3) Anuria and oliguria Is this a current diagnosis for this admission?: Yes Plan: Acute systolic heart failure likely caused secondary to load due to underlying worsening renal failure. 11/01/2018: SBP 9297, T-max 98 0.0, [place] [address], SPO2 96% FiO2 70% BiPAP. Fluid Balance -72 Urine Output 95 ABG: pH 0.35, PCO2 62.0, PO2 77.5, FiO2 70%. BNP 18,000, trops 0.256, 0.359 WBC 9.4, hgb 12.0, plt 202, drier take off tender 2.99 up from 0.30 on admission, baseline 0.5, FSBG 130, mg 2.5, 10/29/2018. Urine culture positive for procidentia stuariti sensitive to ceftriaxone. 10/28/2018. Renal ultrasound bilateral renal cortical cyst. No hydronephrosis. 10/31/2018. KUB. No radiographic evidence for acute abdominal disease, large amount of stool consistent with constipation. (4) Constipation Qualifiers: Constipation type: unspecified constipation type Qualified Code(s): K59.00 - Constipation, unspecified Is this a current diagnosis for this admission?: Yes Plan: Patient with high residuals Not digesting enteral feeding - currently on hold 10/31/2018. KUB. No radiographic evidence for acute abdominal disease, large amount of stool consistent with constipation. Bowel regimen. Consider bisacodyl AL. (5) UTI (urinary tract infection) Qualifiers: Urinary tract infection type: acute cystitis Is this a current diagnosis for this admission?: Yes Plan: Successfully treated. Afebrile, no leukocytosis Obtain new urinalysis and urine culture. 10/29/2018. Urine culture positive for procidentia stuariti sensitive to ceftriaxone. 10/28/2018. Renal ultrasound bilateral renal cortical cyst. No hydronephrosis. 10/31/2018. KUB. No radiographic evidence for acute abdominal disease, large amount of stool consistent with constipation. History of UTI - ESBL e.coli, kelbsiella, proteus Initially treated with Rocephin in ED broadened to Vanc/zosyn Currently on empiric Vancomycin and Ceftriaxone. (6) Do not resuscitate Is this a current diagnosis for this admission?: Yes Plan: Patient will be maintained as a DNR. A discussion should be had with the family concerning possible comfort measures only and/or hospice care. (7) Renal failure Qualifiers: Renal failure chronicity: acute Is this a current diagnosis for this admission?: Yes Plan: As per #3 (8) Parkinson's disease dementia Qualifiers: Dementia behavioral disturbance: without behavioral disturbance Qualified Code(s): G20 - Parkinson's disease; F02.80 - Dementia in other diseases classified elsewhere without behavioral disturbance Is this a current diagnosis for this admission?: Yes Plan: Patient has end-stage Parkinson's disease with dementia. Not taking medications (according to [facility] medication list) (9) Sepsis Qualifiers: Sepsis type: sepsis due to unspecified organism Qualified Code(s): A41.9 - Sepsis, unspecified organism Is this a current diagnosis for this admission?: Yes Plan: Resolved. afebrile, negative leukocytosis, blood cultures negative, UTI which was successfully treated. She is hypotensive, tachycardic, tachypnea, hypoxic and hypercarbic which could be due to underlying acute heart and respiratory failure other than being septic. Will continue empiric antibiotics, corticosteroids, will obtain fresh urinanalysis, blood culture and urine culture. SBP 9297, T-max 98.0, [place] [address], SPO2 96% FiO2 70% BiPAP. ABG: pH 0.35, PCO2 62.0, PO2 77.5, FiO2 70%. BNP 18,000, trops 0.256, 0.359 WBC 9.4, hgb 12.0, plt 202, drier take off tender 2.99 up from 0.30 on admission, baseline 0.5, FSBG 130, mg 2.5, 10/29/2018. Urine culture positive for procidentia stuariti sensitive to ceftriaxone. 10/28/2018. Renal ultrasound bilateral renal cortical cyst. No hydronephrosis. 10/31/2018. KUB. No radiographic evidence for acute abdominal disease, large amount of stool consistent with constipation.
[2018-11-01] MEDS ORDERED: CEFTRIAXONE 1 GM/D5W RTU 1 GM/50 ML RTUPB IV SCH (12:00)
[2018-11-01] MEDS: VANCOMYCIN HCL 750 MG in DEXTROSE 5%-WATER 250 ML IV SCH (12:30)
--- NOTE | 2018-11-01 13:15 | RADIOLOGY REPORT (SQ) ---
EXAM DESCRIPTION: CHEST SINGLE VIEW COMPLETED DATE/TIME: 11/01/2018 1:04 pm REASON FOR STUDY: hypoxia COMPARISON: 10/29/2018 TECHNIQUE: Single frontal radiographic view of the chest acquired. NUMBER OF VIEWS: One view. LIMITATIONS: None. FINDINGS: LUNGS AND PLEURA: No pneumothorax. Bibasilar airspace disease -atelectasis, right greater than left. No significant pleural effusion. MEDIASTINUM AND HILAR STRUCTURES: Stable. HEART AND VASCULAR STRUCTURES: Stable. BONES: No acute findings. HARDWARE: None in the chest. OTHER: No other significant finding. IMPRESSION: Bibasilar airspace disease -atelectasis, right greater than left. TECHNICAL DOCUMENTATION: JOB ID: [id number] [employer]- All Rights Reserved Reading location - IP/workstation name: [employer]
[2018-11-01] MEDS: CEFTRIAXONE SODIUM 1,000 MG in DEXTROSE 5%-WATER 50 ML IV SCH (15:09)
[2018-11-01] MEDS: HYDROCORTISONE SOD SUCCINATE INJ/PF 100 MG/2 ML SDV IV SCH ×2 (15:09→21:19)
--- NOTE | 2018-11-01 19:10 | PDOC CONSULTATION ---
Consultation Consult Date: 11/01/18 Attending physician:: SONIYA DUKES Provider Consulted: JOSE BURROWS Consult reason:: Sepsis/renal failure/acute respiratory failure History of Present Illness Admission Date/PCP: 10/29/18 03:56 ANJEL CANNON MD History of Present Illness: RADHA MENA is a 87 year old female, custodial presented to the emergency room acutely shortness of breath medical problems advanced dementia and Parkinson's disease dramatically improved her hypoxia however she was still somewhat tachypneic stated that she is a DNR and would not be intubated. Her status continued to decline that was changed to APAP's tidal volumes extremely small remained quite tachypneic has acute renal failure congestive heart failure Past Medical History Cardiac Medical History: Reports: Hyperlipidema Denies: Coronary Artery Disease, Myocardial Infarction - possible [place] 01/2011, Hypertension Pulmonary Medical History: Reports: Bronchitis, Pneumonia Denies: Asthma, Chronic Obstructive Pulmonary Disease (COPD) EENT Medical History: Reports: Eyes - Unilateral blindness and glaucoma per family report, Ears - Right auricle with history of trauma per family report Neurological Medical History: Reports: Other - Diagnosis of Parkinson's disease per family report Denies: Hemorrhagic CVA, Ischemic CVA, Seizures Endocrine Medical History: Reports: Diabetes Mellitus Type 2, Obesity Denies: Diabetes Mellitus Type 1, Hyperthyroidism, Hypothyroidism Renal/ Medical History: Denies: Chronic Kidney Disease, Nephrolithiasis Malignancy Medical History: Reports: None GI Medical History: Denies: Cirrhosis, Hepatitis Musculoskeltal Medical History: Reports: Arthritis Denies: Gout Skin Medical History: Denies: Eczema, Psoriasis Psychiatric Medical History: Reports: Dementia, Depression Denies: Alcohol Dependency, Substance Abuse, Tobacco Dependency Traumatic Medical History: Reports: None Hematology: Denies: Anemia, Bleeding Tendencies Infectious Medical History: Reports: None Past Surgical History Past Surgical History: Reports: Hysterectomy, Orthopedic Surgery - L knee and L ankle Denies: Pacemaker Social History Information Source: [facility] Records Lives with: Snf Smoking Status: Never Smoker Frequency of Alcohol Use: None Hx Recreational Drug Use: No Drugs: None Hx Prescription Drug Abuse: No - Advance Directive Resuscitation Status: Do Not Resuscitate Family History Family History: CAD, Malignancy - Gastric cancer--father and brother Parental Family History Reviewed: No Children Family History Reviewed: No Sibling(s) Family History Reviewed.: No Medication/Allergy Home Medications: Acetaminophen [[facility]are Fever [facility] [employer]] 650 mg PEG Q6HP PRN 06/24/18 Ascorbic Acid [Vitamin C] 1,000 mg PEG DAILY 06/24/18 Cholecalciferol (Vitamin D3) [Vitamin D3 1000 Unit Tablet] 1,000 unit PEG DAILY 06/24/18 Cranberry Extract [Cranberry 250 mg Tablet] 250 mg PEG BID 06/24/18 Cyanocobalamin (Vitamin B-12) [Vitamin B-12 1000 mcg Tablet] 1,000 mcg PEG DAILY 06/24/18 Docusate Sodium [Colace Udc 100 mg/10 ml Oral Soln] 100 mg PEG DAILY 06/24/18 Eyelid Cleanser Combination 3 [Ocusoft Lid Scrub Plus] 1 applic OU QAM 06/24/18 Famotidine [Pepcid] 20 mg PEG DAILY 06/24/18 Ipratropium/Albuterol Sulfate [Duoneb 3 ml Ampul] 3 ml NEB Q8HP PRN 06/24/18 Latanoprost/Pf [Latanoprost 0.005% Eye Drop] 1 drop OD QHS 06/24/18 Magnesium Hydroxide [Milk of Magnesia 30 ml Udcup] 30 ml PEG DAILYP PRN 06/24/18 Magnesium Oxide [Magox] 400 mg PEG BID 06/24/18 Multivitamin [My Favorite Multiple] 30 ml PEG QAM 06/24/18 Pot Chl 10% Danielle 20meq/15ml 10 ml PEG DAILY 06/24/18 Psyllium Husk (with Sugar) [Metamucil Packet] 3.4 gm PEG BID 06/24/18 Clotrimazole/Betamethasone Dip [Lotrisone Cream 15 gm] 1 applic TOP BID tube 06/30/18 Albuterol Sulfate [Ventolin 0.083% Neb 2.5 mg/3 mL Ampul] 1 vial NEB Q6HP PRN 10/29/18 Polyvinyl Alcohol [Liquitears 1.4% Ophth Soln 15 ml] 1 drop OU Q8 10/29/18 Allergies/Adverse Reactions: Sulfa (Sulfonamide Antibiotics) Allergy (Severe, Verified 04/11/16 18:16) tongue levofloxacin [From Levaquin] Allergy (Verified 04/11/16 18:16) nickel [Nickel] Allergy (Verified 04/11/16 18:16) Review of Systems ROS unobtainable: Due to mental status Physical Exam Vital Signs: Temp Pulse Resp BP Pulse Ox 97.9 F 100 22 H 110/77 99 11/01/18 18:00 11/01/18 18:00 11/01/18 18:00 11/01/18 18:00 11/01/18 18:00 Intake & Output 10/31/18 11/01/18 11/02/18 06:59 06:59 06:59 Intake Total 1150 367 Output Total 150 95 162 Balance 1000 272 -162 Weight 63.1 kg 64.6 kg General appearance: PRESENT: disheveled, mild distress. ABSENT: cooperative Head exam: PRESENT: atraumatic, normocephalic Eye exam: PRESENT: conjunctiva pale, EOMI. ABSENT: nystagmus Mouth exam: PRESENT: dry mucosa, neck supple, tongue midline Neck exam: ABSENT: carotid bruit, full ROM, JVD, lymphadenopathy, meningismus, tenderness, thyromegaly, tracheal deviation, tracheostomy, other Respiratory exam: PRESENT: decreased breath sounds, prolonged expiratory phas, rales, rhonchi, wheezes. ABSENT: unlabored Cardiovascular exam: PRESENT: RRR, +S1, +S2, tachycardia Pulses: PRESENT: normal radial pulses GI/Abdominal exam: PRESENT: soft. ABSENT: mass Gentrourinary exam: PRESENT: indwelling catheter Extremities exam: PRESENT: joint swelling, +2 edema. ABSENT: calf tenderness, clubbing Musculoskeletal exam: ABSENT: ambulatory, deformity, dislocation Neurological exam: PRESENT: altered Psychiatric exam: PRESENT: flat affect Focused psych exam: PRESENT: catatonic Skin exam: PRESENT: dry, warm Results Laboratory Results: 11/01/18 04:04 11/01/18 04:04 10/31/18 10/31/18 11/01/18 18:50 20:55 04:04 WBC 9.4 RBC 3.82 Hgb 12.0 Hct 35.2 L MCV 92 MCH 31.3 MCHC 34.0 RDW 13.3 Plt Count 202 Seg Neutrophils % 85.7 H Lymphocytes % 6.7 L Monocytes % 7.2 Eosinophils % 0.1 Basophils % 0.3 Absolute Neutrophils 8.0 Absolute Lymphocytes 0.6 Absolute Monocytes 0.7 Absolute Eosinophils 0.0 Absolute Basophils 0.0 Carbonic Acid 2.23 H 1.99 H HCO3/H2CO3 Ratio 15:1 17:1 ABG pH 7.28 L 7.33 L ABG pCO2 74.1 H* 66.1 H ABG pO2 153.2 H 100.5 H ABG HCO3 34.4 H 33.9 H ABG O2 Saturation 98.6 H 97.0 ABG Base Excess 5.5 6.1 FiO2 60% 40% Sodium Potassium Chloride Carbon Dioxide Anion Gap BUN Creatinine Est GFR ( Amer) Est GFR (Non-Af Amer) Glucose Calcium Magnesium 11/01/18 11/01/18 04:04 08:56 WBC RBC Hgb Hct MCV MCH MCHC RDW Plt Count Seg Neutrophils % Lymphocytes % Monocytes % Eosinophils % Basophils % Absolute Neutrophils Absolute Lymphocytes Absolute Monocytes Absolute Eosinophils Absolute Basophils Carbonic Acid 1.87 H HCO3/H2CO3 Ratio 17:1 ABG pH 7.35 ABG pCO2 62.0 H ABG pO2 77.5 L ABG HCO3 33.1 H ABG O2 Saturation 94.5 ABG Base Excess 5.3 FiO2 70% Sodium 137.4 Potassium 3.4 L D Chloride 90 L Carbon Dioxide 33 H Anion Gap 14 BUN 90 H D Creatinine 2.99 H Est GFR ( Amer) 18 L Est GFR (Non-Af Amer) 15 L Glucose 130 H Calcium 8.4 Magnesium 2.5 H 10/29/18 10/29/18 10/29/18 02:19 08:23 08:23 Creatine Kinase 33 CK-MB (CK-2) 4.60 H Troponin I < 0.012 0.017 NT-Pro-B Natriuret Pep 4730 H 10/29/18 10/29/18 10/29/18 14:54 14:54 20:13 Creatine Kinase 21 L 25 L CK-MB (CK-2) 3.13 Troponin I 0.026 NT-Pro-B Natriuret Pep 10/29/18 10/30/18 10/30/18 20:13 13:01 13:01 Creatine Kinase 442 H CK-MB (CK-2) 2.35 2.30 Troponin I 0.025 0.086 NT-Pro-B Natriuret Pep 10/30/18 10/30/18 10/30/18 17:50 17:50 17:50 Creatine Kinase 470 H CK-MB (CK-2) 2.69 Troponin I 0.074 NT-Pro-B Natriuret Pep 96364 H 10/31/18 10/31/18 10/31/18 00:10 00:10 07:03 Creatine Kinase 428 H CK-MB (CK-2) 3.81 2.77 Troponin I 0.090 0.176 NT-Pro-B Natriuret Pep 10/31/18 10/31/18 10/31/18 07:03 07:03 12:36 Creatine Kinase 382 H CK-MB (CK-2) 2.21 Troponin I 0.256 NT-Pro-B Natriuret Pep 79038 H 10/31/18 10/31/18 10/31/18 12:36 18:35 18:35 Creatine Kinase 302 H 243 H CK-MB (CK-2) 1.76 Troponin I 0.359 NT-Pro-B Natriuret Pep Impressions: KUB X-Ray 10/31/18 05:59 IMPRESSION: NO RADIOGRAPHIC EVIDENCE FOR ACUTE ABDOMINAL DISEASE. LARGE AMOUNT OF STOOL CONSISTENT WITH CONSTIPATION. Renal Ultrasound 10/31/18 19:13 IMPRESSION: BILATERAL RENAL CORTICAL CYSTS. NO HYDRONEPHROSIS. Chest X-Ray 11/01/18 00:00 IMPRESSION: Bibasilar airspace disease -atelectasis, right greater than left. Assessment & Plan - Diagnosis (1) Acute congestive heart failure Qualifiers: Heart failure type: unspecified Qualified Code(s): I50.9 - Heart failure, unspecified Is this a current diagnosis for this admission?: Yes Plan: JVD to the angle of the jaw positive S4; patient underwent echocardiogram report views were not optimal (2) Acute respiratory failure with hypoxia and hypercapnia Is this a current diagnosis for this admission?: Yes Plan: NIPPV have been implemented with very limited success tachypneic a small tidal volumes. Her respiratory status may improve after dialysis; overall prognosis is very poor Radiographs shows bibasilar infiltrates large amount of atelectasis right lower lobe (3) Cardiogenic shock Is this a current diagnosis for this admission?: Yes Plan: Volume overloaded intermittent use of vasopressor agents (4) Pyuria Is this a current diagnosis for this admission?: Yes (5) Renal failure Qualifiers: Renal failure chronicity: acute Is this a current diagnosis for this admission?: Yes Plan: ATN due to hypotension as well as other comorbidities (6) Sepsis Qualifiers: Sepsis type: sepsis due to unspecified organism Qualified Code(s): A41.9 - Sepsis, unspecified organism Is this a current diagnosis for this admission?: Yes Plan: Pyuria; culture is not positive yet - Time Total Critical Time (Minutes): 55
[2018-11-01] MEDS: ENOXAPARIN SODIUM INJ 40 MG/0.4 ML DISP.SYRIN SUBCUT SCH (23:15)
[2018-11-01] MEDS: ACETAMINOPHEN SOLN 325 MG/10.15 ML UDCUP PEG PRN (23:40)
[2018-11-02 01:46] LABS: APPEARANCE,URINE CLOUDY; BILIRUBIN,URINE NEGATIVE (NEGATIVE); COLOR,URINE YELLOW; GLUCOSE, URINE NEGATIVE (NEGATIVE); KETONES,URINE NEGATIVE (NEGATIVE); LEUKOCYTE ESTERASE,URINE LARGE (NEGATIVE); NITRITE,URINE NEGATIVE (NEGATIVE); PROTEIN,URINE 30 mg/dL (NEGATIVE); URINE SPECIFIC GRAVITY 1.016; UROBILINOGEN,URINE NEGATIVE mg/dL (<2.0)
[2018-11-02 04:14] LABS: HEMATOCRIT 33.9 % (36.0-47.0); HEMOGLOBIN 11.6 g/dL (12.0-15.5); MEAN CORPUSCULAR HEMOGLOBIN 31.3 pg (27.0-33.4); MEAN CORPUSCULAR HGB CONC 34.2 g/dL (32.0-36.0); MEAN CORPUSCULAR VOLUME 92 fl (80-97); PLATELET COUNT 200 10^3/uL (150-450); RED CELL DISTRIBUTION WIDTH 13.2 % (11.5-14.0); WHITE BLOOD COUNT 10.3 10^3/uL (4.0-10.5)
[2018-11-02 04:34] LABS: ALANINE AMINOTRANSFERASE 54 U/L (9-52); ALBUMIN 2.8 g/dL (3.5-5.0); ALKALINE PHOSPHATASE 62 U/L (38-126); ANION GAP 16 (5-19); ASPARTATE AMINO TRANSFERASE 50 U/L (14-36); BILIRUBIN,DIRECT 0.4 mg/dL (0.0-0.4); BILIRUBIN,TOTAL 0.4 mg/dL (0.2-1.3); BLOOD UREA NITROGEN 99 mg/dL (7-20); CALCIUM 8.7 mg/dL (8.4-10.2); CARBON DIOXIDE 33 mmol/L (22-30); CHLORIDE 90 mmol/L (98-107); GLUCOSE 136 mg/dL (75-110); SODIUM 139.3 mmol/L (137-145); TOTAL PROTEIN 5.6 g/dL (6.3-8.2)
[2018-11-02 04:45] LABS: ABSOLUTE LYMPHOCYTES# (MANUAL) 0.2 10^3/uL (0.5-4.7); ABSOLUTE MONOCYTES # (MANUAL) 0.1 10^3/uL (0.1-1.4); BAND NEUTROPHILS % (MANUAL) 4 % (3-5); BASOPHILS % (MANUAL) 0 % (0-2); EOSINOPHILS % (MANUAL) 0 % (0-6); LYMPHOCYTES % (MANUAL) 2 % (13-45); MONOCYTES % (MANUAL) 1 % (3-13); NUCLEATED RED BLOOD CELLS 1 /100 WBC (0); SEGMENTED NEUTROPHILS % (MAN) 93 % (42-78); TOTAL CELLS COUNTED 100
[2018-11-02 04:46] LABS: PLATELET COMMENT ADEQUATE; TOXIC GRANULATION SLIGHT
[2018-11-02 04:48] LABS: HYPOCHROMASIA 2+; TARGET CELLS SLIGHT; TOXIC VACUOLATION PRESENT
[2018-11-02 05:00] LABS: POTASSIUM 2.9 mmol/L (3.6-5.0)
[2018-11-02 05:14] LABS: ARTERIAL BLOOD BASE EXCESS 7.7 mmol/L; ARTERIAL BLOOD H2CO3 1.91 mmol/L (1.05-1.35); ARTERIAL BLOOD HCO3 35.2 mmol/L (20-24); ARTERIAL BLOOD O2 SATURATION 97.5 % (94-98); ARTERIAL BLOOD PCO2 63.3 mmHg (35-45); ARTERIAL BLOOD PH 7.36 (7.35-7.45); ARTERIAL BLOOD PO2 105.8 mmHg (80-100); ARTERIAL BLOOD TOTAL CO2 37.1 mmol/L (21-25)
[2018-11-02] MEDS: HYDROCORTISONE SOD SUCCINATE INJ/PF 100 MG/2 ML SDV IV SCH ×3 (05:30→21:19)
[2018-11-02] MEDS: POTASSIUM CHLORIDE 20 MEQ/50 ML RTU IV SCH ×3 (05:32→09:35)
[2018-11-02] MEDS: CHOLECALCIFEROL (D3) 1,000 UNIT TABLET PEG SCH (09:25)
[2018-11-02] MEDS: FAMOTIDINE 20 MG TABLET PEG SCH (09:25)
[2018-11-02] MEDS: ASCORBIC ACID 500 MG TABLET PEG SCH (09:25)
[2018-11-02] MEDS: ACETAMINOPHEN SOLN 325 MG/10.15 ML UDCUP PEG PRN (09:26)
[2018-11-02] MEDS: POLYETHYLENE GLYCOL 3350 POWDER 17 GM/1 PACKET PEG SCH (09:26)
[2018-11-02] MEDS: DOCUSATE SODIUM 100 MG/10 ML UDC PEG SCH (09:26)
[2018-11-02] MEDS: MAGNESIUM OXIDE 400 MG TABLET PEG SCH ×2 (09:26→17:41)
[2018-11-02] MEDS: MULTIVITS W-MIN/IRON SOLN 60 ML PEG SCH (09:27)
--- NOTE | 2018-11-02 09:28 | RADIOLOGY REPORT (SQ) ---
EXAM DESCRIPTION: CHEST SINGLE VIEW COMPLETED DATE/TIME: 11/02/2018 6:31 am REASON FOR STUDY: intubated COMPARISON: 11/01/2018 NUMBER OF VIEWS: One view. TECHNIQUE: Single frontal radiographic image of the chest acquired. LIMITATIONS: Positioning. FINDINGS: LUNGS AND PLEURA: Stable appearance. Chronic volume loss on the right. No infiltrate. MEDIASTINUM AND HEART: Stable heart size and mediastinal structures. BONY STRUCTURES: No acute findings. HARDWARE: None. OTHER: No other significant finding. IMPRESSION: STABLE APPEARANCE OF THE CHEST. TECHNICAL DOCUMENTATION: JOB ID: [id number] Reading location - IP/workstation name: [email or web address]-
[2018-11-02] MEDS: CYANOCOBALAMIN (VITAMIN B-12) 1,000 MCG TABLET PEG SCH (09:29)
[2018-11-02] MEDS ORDERED: ENOXAPARIN SODIUM INJ 40 MG/0.4 ML DISP.SYRIN SUBCUT SCH (10:00)
[2018-11-02] MEDS: METOCLOPRAMIDE HCL INJ/PF 10 MG/2 ML SDV IV SCH ×4 (10:43→21:19)
[2018-11-02] MEDS: ENOXAPARIN SODIUM INJ 30 MG/0.3 ML DISP.SYRIN SUBCUT SCH (10:44)
--- NOTE | 2018-11-02 11:53 | PDOC PROGRESS REPORT ---
Subjective Progress Note for:: 11/02/18 Subjective:: RADHA MENA is a 87 year old female who presented from the [facility] via EMS on the water pump servicer of admission. She was found and by staff dyspneic and struggling to breathe. When EMS arrived patient was started having O2 sat in the 70s and a initiated [id number] resuscitation in route to the hospital. 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 In the emergency room she was found to be hypoxic and possibly hypercapnic. She was started on BiPAP with excellent response. Chest x-ray did not reveal significant clinical changes per report. BNP was elevated. Patient was subsequently admitted to hospital for further evaluation and treatment. HOSPITAL COURSE: 87 y.o. F with a PMH HLD, bronchitis, Parkinsons, DM type 2, from [facility] presented to [facility] ED for SOB and dyspnea requiring BIPAP. Elevated BNP to 4730. UA was (+) for UTI - turbid appearance with large leuk esterase. The patient was given Rocephin in ED, switched to Vancomycin and Zosyn once inpatient. BNP elevated to >4000. Cardiomegaly and pulmonary vascular congestion on CXR. According to family, the patient has no history of CHF. Echocardiogram obtained. Unfortunately the images are poor quality. LVEF is determined to be normal. Patient was treated with IVF and antibiotics for her UTI/sepsis. Her BNP continued to rise, peaking at 18,000. Patient began show ing signs of volume overload -periorbital edema, coarse lung sounds, trace edema in the hips and thighs. As a result, her maintenance IVF was discontinued and the patient was subsequently treated with Lasix to help alleviate her volume overload. Unfortunately, the patient did not adequately diurese. In fact, her weight has remained 63 kg throughout her hospitalization. Her creatinine upon arrival was 0.3. Over the course of 48 hours her creatinine has acutely risen to 2.3. She remains hypervolemic and is becoming more and more oliguric. Her physical assessment has not changed. She remains on BIPAP. Eyes closed, nonverbal, bedbound, lower extremities contracted. Lungs are coarse to auscu ltation. The patient does not appear to be in distress, she is breathing comfortably on the BIPAP. Her tidal volumes are low and minute ventilation is only 3. Pulses are faint in the upper and lower extremities. Clumps of pus are seen in the Ly catheter tubing. Discussed treatment options with the family. They expressed an interest in dialysis. Despite the patient being a DNR/DNI, they wish to pursue all other medical treatment possible. Nephrology is, unfortunately, unavailable over the weekends at [facility]. Discussed the patient's case with Dr. Pelayo of [facility], who graciously accepted the patient. Plan to obtain renal ultrasound while patient is waiting for transfer to [facility]. 11/01/2018. Plans was made to transfer the patient to [facility] however when the transport team arrived they found the patient to be too unstable to transport. They requested the patient to be intubated and that she be started on pressor agents. The patient had been started on AVAPS prior to the arrival of the transport team to help support her oxygenation. Her blood pressure was 84 systolic upon their arrival and they initiated a Levophed drip. As per Dr. Shagufta abreu's note he had discussed at length with the family the need for intubation if they wish to have their loved one transferred. The patient's medical power of mortar carrier was very adamant that she did not want to be intubated or ventilated and that this was not going to be something would be done during her hospital course. They did agree to being transferred to the ICU for the continued use of pressor agents and they did agree to continued use of advanced airway pressure support therapy. Exam showed the patient to be significantly tachypneic with very poor air mo vement. She was also noted to be mildly tachycardic and to have significantly diminished peripheral pulses. Patient was subsequently transferred to the ICU for further treatment. In the ICU the patient was placed on a Tashi-Synephrine infusion to provide blood pressure support and she was also continued on her AVAPS with an increased respiratory rate of 20. The charge nurse in ICU to the transport to see how we could facilitate patient's transfer. They had stated they may be able to answer the patient to [facility] however he would like to know what to do if the patient codes in route to [facility], patient is DNR and DNI. Also contacted [facility] and they stated the transfer is being canceled that has to be reinitiated if the patient needs to be transferred. Had a very lengthy discussion with 2 of her daughters whom is the POA updated them about patient's critical status and possible course of actions. One course of action would be to reinitiate transfer to [facility] but the patient might need to be intubated en route to [facility] if she becomes too critical but family did not want intubation under any circumstances. Other course of action would be to keep the patient here in ICU on BiPAP, pressors and consult nephrology water pump servicer tomorrow possible urgent hemodialysis, while the patient fully understands that the patient is very critical and may not make it till tomorrow. 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 Currently off of Tashi-Synephrine with MAP>60; however she is becoming more hypoxic, hypercapnic and tachypneic. 11/02/2018. No significant changes. Patient still very distressed. Renal function is worsening and mild improvement of hypoxia however very tachypneic. SBP 00831, T-max 97.3 pulse 18100, RR 1834, SPO2 95% FiO2 55% BiPAP. ABG pH 7.36, PCO2 63.3, PO2 105.8, FiO2 55%. Urine output 397. WBC 10.3, hemoglobin 11.6, platelets 200, sodium 139.3, potassium 2.9, bicarb 33, creatinine 3.32 up from 2.99. Reason For Visit: ACUTE RESPIRATORY FAILURE WITH HYPOXIA Physical Exam Vital Signs: Temp Pulse Resp BP Pulse Ox 97.3 F 108 H 34 H 152/86 H 95 11/02/18 08:00 11/02/18 10:00 11/02/18 10:00 11/02/18 10:00 11/02/18 10:00 Intake & Output 11/01/18 11/02/18 11/03/18 06:59 06:59 06:59 Intake Total 367 0 91 Output Total 95 397 150 Balance 272 -397 -59 Weight 64.6 kg 65 kg General appearance: PRESENT: severe distress Head exam: PRESENT: atraumatic, normocephalic Respiratory exam: PRESENT: accessory muscle use, clear to auscultation alina, decreased breath sounds, tachypnea. ABSENT: rales, rhonchi, wheezes Cardiovascular exam: PRESENT: RRR. ABSENT: diastolic murmur, rubs, systolic murmur GI/Abdominal exam: PRESENT: normal bowel sounds, soft. ABSENT: distended, guarding, mass, organolmegaly, rebound, tenderness Neurological exam: PRESENT: other - GCS 6 Results Laboratory Results: 11/02/18 03:43 11/02/18 03:43 11/02/18 11/02/18 11/02/18 01:20 03:43 03:43 WBC 10.3 RBC 3.70 L Hgb 11.6 L Hct 33.9 L MCV 92 MCH 31.3 MCHC 34.2 RDW 13.2 Plt Count 200 Seg Neutrophils % Not Reportable Lymphocytes % Not Reportable Monocytes % Not Reportable Eosinophils % Not Reportable Basophils % Not Reportable Absolute Neutrophils Not Reportable Absolute Lymphocytes Not Reportable Absolute Monocytes Not Reportable Absolute Eosinophils Not Reportable Absolute Basophils Not Reportable Carbonic Acid HCO3/H2CO3 Ratio ABG pH ABG pCO2 ABG pO2 ABG HCO3 ABG O2 Saturation ABG Base Excess FiO2 Sodium 139.3 Potassium 2.9 L* Chloride 90 L Carbon Dioxide 33 H Anion Gap 16 BUN 99 H Creatinine 3.32 H Est GFR ( Amer) 16 L Est GFR (Non-Af Amer) 13 L Glucose 136 H Calcium 8.7 Magnesium 2.6 H Total Bilirubin 0.4 AST 50 H ALT 54 H Alkaline Phosphatase 62 Total Protein 5.6 L Albumin 2.8 L Urine Color YELLOW Urine Appearance CLOUDY Urine pH 6.0 Ur Specific [place] 1.016 Urine Protein 30 H Urine Glucose (UA) NEGATIVE Urine Ketones NEGATIVE Urine Blood MODERATE H Urine Nitrite NEGATIVE Ur Leukocyte Esterase LARGE H Urine WBC (Auto) 50 Urine RBC (Auto) 10 11/02/18 04:28 WBC RBC Hgb Hct MCV MCH MCHC RDW Plt Count Seg Neutrophils % Lymphocytes % Monocytes % Eosinophils % Basophils % Absolute Neutrophils Absolute Lymphocytes Absolute Monocytes Absolute Eosinophils Absolute Basophils Carbonic Acid 1.91 H HCO3/H2CO3 Ratio 18:1 ABG pH 7.36 ABG pCO2 63.3 H ABG pO2 105.8 H ABG HCO3 35.2 H ABG O2 Saturation 97.5 ABG Base Excess 7.7 FiO2 55% Sodium Potassium Chloride Carbon Dioxide Anion Gap BUN Creatinine Est GFR ( Amer) Est GFR (Non-Af Amer) Glucose Calcium Magnesium Total Bilirubin AST ALT Alkaline Phosphatase Total Protein Albumin Urine Color Urine Appearance Urine pH Ur Specific [place] Urine Protein Urine Glucose (UA) Urine Ketones Urine Blood Urine Nitrite Ur Leukocyte Esterase Urine WBC (Auto) Urine RBC (Auto) 10/29/18 10/29/18 10/29/18 02:19 08:23 08:23 Creatine Kinase 33 CK-MB (CK-2) 4.60 H Troponin I < 0.012 0.017 NT-Pro-B Natriuret Pep 4730 H 10/29/18 10/29/18 10/29/18 14:54 14:54 20:13 Creatine Kinase 21 L 25 L CK-MB (CK-2) 3.13 Troponin I 0.026 NT-Pro-B Natriuret Pep 10/29/18 10/30/18 10/30/18 20:13 13:01 13:01 Creatine Kinase 442 H CK-MB (CK-2) 2.35 2.30 Troponin I 0.025 0.086 NT-Pro-B Natriuret Pep 10/30/18 10/30/18 10/30/18 17:50 17:50 17:50 Creatine Kinase 470 H CK-MB (CK-2) 2.69 Troponin I 0.074 NT-Pro-B Natriuret Pep 70931 H 10/31/18 10/31/18 10/31/18 00:10 00:10 07:03 Creatine Kinase 428 H CK-MB (CK-2) 3.81 2.77 Troponin I 0.090 0.176 NT-Pro-B Natriuret Pep 10/31/18 10/31/18 10/31/18 07:03 07:03 12:36 Creatine Kinase 382 H CK-MB (CK-2) 2.21 Troponin I 0.256 NT-Pro-B Natriuret Pep 19280 H 10/31/18 10/31/18 10/31/18 12:36 18:35 18:35 Creatine Kinase 302 H 243 H CK-MB (CK-2) 1.76 Troponin I 0.359 NT-Pro-B Natriuret Pep Impressions: KUB X-Ray 10/31/18 05:59 IMPRESSION: NO RADIOGRAPHIC EVIDENCE FOR ACUTE ABDOMINAL DISEASE. LARGE AMOUNT OF STOOL CONSISTENT WITH CONSTIPATION. Renal Ultrasound 10/31/18 19:13 IMPRESSION: BILATERAL RENAL CORTICAL CYSTS. NO HYDRONEPHROSIS. Chest X-Ray 11/02/18 06:00 IMPRESSION: STABLE APPEARANCE OF THE CHEST. Assessment and Plan - Diagnosis (1) Acute respiratory failure with hypoxia and hypercapnia Is this a current diagnosis for this admission?: Yes Plan: Unchanged. Due to acute systolic heart failure likely caused secondary to load due to underlying worsening renal failure. 11/02/2018: SBP 23992, T-max 97.3 pulse 43795, RR 1834, SPO2 95% FiO2 55% BiPAP. ABG pH 7.36, PCO2 63.3, PO2 105.8, FiO2 55%. Urine output 397. 11/01/2018: SBP 9297, T-max 98 0.0, [place] [address], SPO2 96% FiO2 70% BiPAP. ABG: pH 0.35, PCO2 62.0, PO2 77.5, FiO2 70%. BNP 18,000, trops 0.256, 0.359 WBC 9.4, hgb 12.0, plt 202, business applications specialist 2.99 up from 0.30 on admission, baseline 0.5, FSBG 130, mg 2.5, Continue BiPAP, pressors as needed, strict in and out, volume restriction, monitor vitals, monitor electrolytes and replace as needed. Nephrology has been consulted, recommendations will be noted. 10/29/2018. Urine culture positive for procidentia stuariti sensitive to ceftriaxone. 10/28/2018. Renal ultrasound bilateral renal cortical cyst. No hydronephrosis. 10/31/2018. KUB. No radiographic evidence for acute abdominal disease, large amount of stool consistent with constipation. 11/01/2018. Plans was made to transfer the patient to [facility] however when the transport team arrived they found the patient to be too unstable to transport. They requested the patient to be intubated and that she be started on pressor agents. The patient had been started on AVAPS prior to the arrival of the transport team to help support her oxygenation. Her blood pressure was 84 systolic upon their arrival and they initiated a Levophed drip. As per Dr. Shagufta abreu's note he had discussed at length with the family the need for intubation if they wish to have their loved one transferred. The patient's medical power of mortar carrier was very adamant that she did not want to be intubated or ventilated and that this was not going to be something would be done during her hospital course. They did agree to being transferred to the ICU for the continued use of pressor agents and they did agree to continued use of advanced airway pressure support therapy. Exam showed the patient to be significantly tachypneic with very poor air movement. She was also noted to be mildly tachycardic and to have significantly diminished peripheral pulses. Patient was subsequently transferred to the ICU for further treatment. In the ICU the patient was placed on a Tashi-Synephrine infusion to provide blood pressure support and she was also continued on her AVAPS with an increased respiratory rate of 20. The charge nurse in ICU to the transport to see how we could facilitate patient's transfer. They had stated they may be able to answer the patient to [facility] however he would like to know what to do if the patient codes in route to [facility], patient is DNR and DNI. Also contacted [facility] and they stated the transfer is being canceled that has to be reinitiated if the patient needs to be transferred. Had a very lengthy discussion with 2 of her daughters whom is the POA updated them about patient's critical status and possible course of actions. One course of action would be to reinitiate transfer to [facility] but the patient might need to be intubated en route to [facility] if she becomes too critical but family did not want intubation under any circumstances. Other course of action would be to keep the patient here in ICU on BiPAP, pressors and consult nephrology water pump servicer tomorrow possible urgent hemodialysis, while the patient fully understands that the patient is very critical and may not make it till tomorrow. 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 Currently off of Tashi-Synephrine with MAP>60; however she is becoming more hypoxic, hypercapnic and tachypneic. (2) Cardiogenic shock Is this a current diagnosis for this admission?: Yes Plan: Secondary to #1 11/02/2018: SBP 01559, T-max 97.3 pulse 90881, RR 1834, SPO2 95% FiO2 55% BiPAP. ABG pH 7.36, PCO2 63.3, PO2 105.8, FiO2 55%. Urine output 397. 11/01/2018: SBP 9297, T-max 98 0.0, [place] [address], SPO2 96% FiO2 70% BiPAP. ABG: pH 0.35, PCO2 62.0, PO2 77.5, FiO2 70%. BNP 18,000, trops 0.256, 0.359 Currently off of Tashi-Synephrine with MAP>60; however she is becoming more hypo xic, hypercapnic and tachypneic. Continue BiPAP, pressors as needed, strict in and out, volume restriction, monitor vitals, monitor electrolytes and replace as needed. Consult nephrology for urgent hemodialysis. (3) Anuria and oliguria Is this a current diagnosis for this admission?: Yes Plan: Acute systolic heart failure likely caused secondary to load due to underlying worsening renal failure. 11/02/2018: SBP 30147, T-max 97.3 pulse 09466, RR 1834, SPO2 95% FiO2 55% BiPAP. ABG pH 7.36, PCO2 63.3, PO2 105.8, FiO2 55%. Urine output 397. 11/01/2018: SBP 9297, T-max 98 0.0, [place] [address], SPO2 96% FiO2 70% BiPAP. Fluid Balance -72 Urine Output 95 ABG: pH 0.35, PCO2 62.0, PO2 77.5, FiO2 70%. BNP 18,000, trops 0.256, 0.359 WBC 9.4, hgb 12.0, plt 202, business applications specialist 2.99 up from 0.30 on admission, baseline 0.5, FSBG 130, mg 2.5, 10/29/2018. Urine culture positive for procidentia stuariti sensitive to ceftriaxone. 10/28/2018. Renal ultrasound bilateral renal cortical cyst. No hydronephrosis. 10/31/2018. KUB. No radiographic evidence for acute abdominal disease, large amount of stool consistent with constipation. (4) Constipation Qualifiers: Constipation type: unspecified constipation type Qualified Code(s): K59.00 - Constipation, unspecified Is this a current diagnosis for this admission?: Yes Plan: Patient with high residuals Not digesting enteral feeding - currently on hold 10/31/2018. KUB. No radiographic evidence for acute abdominal disease, large amount of stool consistent with constipation. Bowel regimen. Consider bisacodyl DE. (5) UTI (urinary tract infection) Qualifiers: Urinary tract infection type: acute cystitis Is this a current diagnosis for this admission?: Yes Plan: Completed a course of IV antibiotics however repeat UA on 11/01/2018 positive for leukocyte esterase. Afebrile, no leukocytosis 10/29/2018. Urine culture positive for procidentia stuariti sensitive to ceftriaxone. 10/28/2018. Renal ultrasound bilateral renal cortical cyst. No hydronephrosis. 10/31/2018. KUB. No radiographic evidence for acute abdominal disease, large amount of stool consistent with constipation. History of UTI - ESBL e.coli, kelbsiella, proteus Initially treated with Rocephin in ED broadened to Vanc/zosyn Currently on empiric Vancomycin and Ceftriaxone. (6) Do not resuscitate Is this a current diagnosis for this admission?: Yes Plan: Patient will be maintained as a DNR. A discussion should be had with the family concerning possible comfort measures only and/or hospice care. (7) Renal failure Qualifiers: Renal failure chronicity: acute Is this a current diagnosis for this admission?: Yes Plan: As per #3 (8) Parkinson's disease dementia Qualifiers: Dementia behavioral disturbance: without behavioral disturbance Qualified Code(s): G20 - Parkinson's disease; F02.80 - Dementia in other diseases classified elsewhere without behavioral disturbance Is this a current diagnosis for this admission?: Yes Plan: Patient has end-stage Parkinson's disease with dementia. Not taking medications (according to [facility] medication list) (9) Sepsis Qualifiers: Sepsis type: sepsis due to unspecified organism Qualified Code(s): A41.9 - Sepsis, unspecified organism Is this a current diagnosis for this admission?: Yes Plan: Resolved. afebrile, negative leukocytosis, blood cultures negative, UTI which was successfully treated. She is hypotensive, tachycardic, tachypnea, hypoxic and hypercarbic which could be due to underlying acute heart and respiratory failure other than being septic. Will continue empiric antibiotics, corticosteroids, will obtain fresh urinanalysis, blood culture and urine culture. 11/02/2018: SBP 47036, T-max 97.3 pulse 34673, RR 1834, SPO2 95% FiO2 55% BiPAP. ABG pH 7.36, PCO2 63.3, PO2 105.8, FiO2 55%. Urine output 397. WBC 10.3, hemoglobin 11.6, platelets 200, sodium 139.3, potassium 2.9, bicarb 33, creatinine 3.32 up from 2.99. 11/01/2018: SBP 9297, T-max 98.0, [place] [address], SPO2 96% FiO2 70% BiPAP. ABG: pH 0.35, PCO2 62.0, PO2 77.5, FiO2 70%. BNP 18,000, trops 0.256, 0.359 WBC 9.4, hgb 12.0, plt 202, business applications specialist 2.99 up from 0.30 on admission, baseline 0.5, FSBG 130, mg 2.5, 10/29/2018. Urine culture positive for procidentia stuariti sensitive to ceftriaxone. 10/28/2018. Renal ultrasound bilateral renal cortical cyst. No hydronephrosis. 10/31/2018. KUB. No radiographic evidence for acute abdominal disease, large amount of stool consistent with constipation. (10) Hypermagnesemia Is this a current diagnosis for this admission?: Yes Plan: Likely due to worsening renal function. DC magnesium supplement. Scheduled for hemodialysis for underlying acute CHF exacerbation and renal failure. Magnesium level tomorrow.
[2018-11-02] MEDS: NORMAL SALINE 1000 ML 1,000 ML IV PRN ×2 (12:00→17:50)
[2018-11-02] MEDS: CEFTRIAXONE SODIUM 1,000 MG in DEXTROSE 5%-WATER 50 ML IV SCH (12:09)
--- NOTE | 2018-11-02 13:02 | PDOC PROGRESS REPORT ---
Subjective Progress Note for:: 11/02/18 Subjective:: Stable actually somewhat improved as FiO2 was decreased from 70% to 55% with adequate oxygenation and no subsequent increase in PCO2 Reason For Visit: ACUTE RESPIRATORY FAILURE WITH HYPOXIA Physical Exam Vital Signs: Temp Pulse Resp BP Pulse Ox 97.3 F 99 35 H 132/89 H 95 11/02/18 08:00 11/02/18 09:29 11/02/18 09:29 11/02/18 08:00 11/02/18 09:29 Intake & Output 11/01/18 11/02/18 11/03/18 06:59 06:59 06:59 Intake Total 367 0 91 Output Total 95 397 75 Balance 272 -397 16 Weight 64.6 kg 65 kg General appearance: PRESENT: disheveled, mild distress. ABSENT: cooperative Head exam: ABSENT: atraumatic, normocephalic Eye exam: PRESENT: conjunctiva pale. ABSENT: nystagmus, periorbital swelling Mouth exam: PRESENT: dry mucosa, neck supple, tongue midline Neck exam: ABSENT: carotid bruit, full ROM, JVD, lymphadenopathy, meningismus, tenderness, thyromegaly, tracheal deviation, tracheostomy, other Respiratory exam: PRESENT: decreased breath sounds, prolonged expiratory phas, rales, rhonchi, tachypnea. ABSENT: retraction, stridor, unlabored Cardiovascular exam: PRESENT: RRR, +S1, +S2, tachycardia Pulses: PRESENT: normal radial pulses GI/Abdominal exam: PRESENT: soft. ABSENT: mass Gentrourinary exam: PRESENT: indwelling catheter Extremities exam: PRESENT: +1 edema. ABSENT: calf tenderness, clubbing, joint swelling Musculoskeletal exam: ABSENT: ambulatory, deformity, dislocation Neurological exam: ABSENT: awake Skin exam: PRESENT: dry, warm Results Laboratory Results: 11/02/18 03:43 11/02/18 03:43 11/02/18 11/02/18 11/02/18 01:20 03:43 03:43 WBC 10.3 RBC 3.70 L Hgb 11.6 L Hct 33.9 L MCV 92 MCH 31.3 MCHC 34.2 RDW 13.2 Plt Count 200 Seg Neutrophils % Not Reportable Lymphocytes % Not Reportable Monocytes % Not Reportable Eosinophils % Not Reportable Basophils % Not Reportable Absolute Neutrophils Not Reportable Absolute Lymphocytes Not Reportable Absolute Monocytes Not Reportable Absolute Eosinophils Not Reportable Absolute Basophils Not Reportable Carbonic Acid HCO3/H2CO3 Ratio ABG pH ABG pCO2 ABG pO2 ABG HCO3 ABG O2 Saturation ABG Base Excess FiO2 Sodium 139.3 Potassium 2.9 L* Chloride 90 L Carbon Dioxide 33 H Anion Gap 16 BUN 99 H Creatinine 3.32 H Est GFR ( Amer) 16 L Est GFR (Non-Af Amer) 13 L Glucose 136 H Calcium 8.7 Magnesium 2.6 H Total Bilirubin 0.4 AST 50 H ALT 54 H Alkaline Phosphatase 62 Total Protein 5.6 L Albumin 2.8 L Urine Color YELLOW Urine Appearance CLOUDY Urine pH 6.0 Ur Specific [place] 1.016 Urine Protein 30 H Urine Glucose (UA) NEGATIVE Urine Ketones NEGATIVE Urine Blood MODERATE H Urine Nitrite NEGATIVE Ur Leukocyte Esterase LARGE H Urine WBC (Auto) 50 Urine RBC (Auto) 10 11/02/18 04:28 WBC RBC Hgb Hct MCV MCH MCHC RDW Plt Count Seg Neutrophils % Lymphocytes % Monocytes % Eosinophils % Basophils % Absolute Neutrophils Absolute Lymphocytes Absolute Monocytes Absolute Eosinophils Absolute Basophils Carbonic Acid 1.91 H HCO3/H2CO3 Ratio 18:1 ABG pH 7.36 ABG pCO2 63.3 H ABG pO2 105.8 H ABG HCO3 35.2 H ABG O2 Saturation 97.5 ABG Base Excess 7.7 FiO2 55% Sodium Potassium Chloride Carbon Dioxide Anion Gap BUN Creatinine Est GFR ( Amer) Est GFR (Non-Af Amer) Glucose Calcium Magnesium Total Bilirubin AST ALT Alkaline Phosphatase Total Protein Albumin Urine Color Urine Appearance Urine pH Ur Specific [place] Urine Protein Urine Glucose (UA) Urine Ketones Urine Blood Urine Nitrite Ur Leukocyte Esterase Urine WBC (Auto) Urine RBC (Auto) 10/29/18 10/29/18 10/29/18 02:19 08:23 08:23 Creatine Kinase 33 CK-MB (CK-2) 4.60 H Troponin I < 0.012 0.017 NT-Pro-B Natriuret Pep 4730 H 10/29/18 10/29/18 10/29/18 14:54 14:54 20:13 Creatine Kinase 21 L 25 L CK-MB (CK-2) 3.13 Troponin I 0.026 NT-Pro-B Natriuret Pep 10/29/18 10/30/18 10/30/18 20:13 13:01 13:01 Creatine Kinase 442 H CK-MB (CK-2) 2.35 2.30 Troponin I 0.025 0.086 NT-Pro-B Natriuret Pep 10/30/18 10/30/18 10/30/18 17:50 17:50 17:50 Creatine Kinase 470 H CK-MB (CK-2) 2.69 Troponin I 0.074 NT-Pro-B Natriuret Pep 92455 H 10/31/18 10/31/18 10/31/18 00:10 00:10 07:03 Creatine Kinase 428 H CK-MB (CK-2) 3.81 2.77 Troponin I 0.090 0.176 NT-Pro-B Natriuret Pep 10/31/18 10/31/18 10/31/18 07:03 07:03 12:36 Creatine Kinase 382 H CK-MB (CK-2) 2.21 Troponin I 0.256 NT-Pro-B Natriuret Pep 30145 H 10/31/18 10/31/18 10/31/18 12:36 18:35 18:35 Creatine Kinase 302 H 243 H CK-MB (CK-2) 1.76 Troponin I 0.359 NT-Pro-B Natriuret Pep Impressions: KUB X-Ray 10/31/18 05:59 IMPRESSION: NO RADIOGRAPHIC EVIDENCE FOR ACUTE ABDOMINAL DISEASE. LARGE AMOUNT OF STOOL CONSISTENT WITH CONSTIPATION. Renal Ultrasound 10/31/18 19:13 IMPRESSION: BILATERAL RENAL CORTICAL CYSTS. NO HYDRONEPHROSIS. Chest X-Ray 11/02/18 06:00 IMPRESSION: STABLE APPEARANCE OF THE CHEST. Assessment & Plan - Diagnosis (1) Acute congestive heart failure Qualifiers: Heart failure type: unspecified Qualified Code(s): I50.9 - Heart failure, unspecified Is this a current diagnosis for this admission?: Yes Plan: JVD to the angle of the jaw positive S4; patient underwent echocardiogram report views were not optimal (2) Acute respiratory failure with hypoxia and hypercapnia Is this a current diagnosis for this admission?: Yes Plan: NIPPV is essentially unchanged overall prognosis is very poor (3) Cardiogenic shock Is this a current diagnosis for this admission?: Yes Plan: Volume overloaded intermittent use of vasopressor agents (4) Renal failure Qualifiers: Renal failure chronicity: acute Is this a current diagnosis for this admission?: Yes Plan: ATN due to hypotension as well as other comorbidities (5) Sepsis Qualifiers: Sepsis type: sepsis due to unspecified organism Qualified Code(s): A41.9 - Sepsis, unspecified organism Is this a current diagnosis for this admission?: Yes Plan: Pyuria; culture is not positive yet - Time Total Critical Time (Minutes): 45
[2018-11-02 13:10] LABS: VANCOMYCIN,TROUGH 14.7 ug/mL (5.0-20.0)
--- NOTE | 2018-11-02 14:26 | PDOC CONSULTATION ---
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 Patient has significant dementia, is nonverbal. In the emergency room she was found to be hypoxic and in respiratory distress. She was started on BiPAP with excellent response. Chest x-ray did not reveal significant clinical changes per report. Patient was found to have UTI with septic shock. Apparently initially she was also diagnosed with CHF and begun on IV diuretics which has been held as patient has probably gone into being over diuresed. She was also begun on antibiotics including vancomycin which I see has been held this morning. No trough had been drawn. She is quite anuric. She was admitted to the ICU and was begun on pressors but she has gotten over that and currently hemodynamically stable. She continues to get her PEG tube but there is a lot of high residuals. X-ray shows she is got severe constipation. She is is quite unresponsive to oral or shaken commands. Initially plans were made to transfer her over this weekend to [facility] because the patient's daughters wanted her to be undergoing dialysis but she is being made a DNR/DNI. However no beds were available as the patient was requested to be intubated prior to transfer she was initially on a BiPAP. However the daughter is refusing the transfer has been canceled. Her current st atus, labs and medications were extensively reviewed with patient's daughters as well as the nurse and the treating hospitalist. Past Medical History Cardiac Medical History: Reports: Hyperlipidemia Denies: Coronary Artery Disease, Myocardial Infarction - possible [place] 01/2011 Pulmonary Medical History: Reports: Bronchitis, Pneumonia Denies: Asthma, Chronic Obstructive Pulmonary Disease (COPD) EENT Medical History: Reports: Eyes - Unilateral blindness and glaucoma per family report, Ears - Right auricle with history of trauma per family report Neurological Medical History: Reports: Other - Diagnosis of Parkinson's disease per family report Denies: Hemorrhagic CVA, Ischemic CVA, Seizures Endocrine Medical History: Reports: Diabetes Mellitus Type 2, Obesity Denies: Diabetes Mellitus Type 1, Hyperthyroidism, Hypothyroidism Complications of Diabetes: Reports: None Renal/ Medical History: Denies: Nephrolithiasis Malignancy Medical History: Reports: None GI Medical History: Denies: Cirrhosis, Hepatitis Musculoskeltal Medical History: Reports: Arthritis Denies: Gout Skin Medical History: Denies: Eczema, Psoriasis Psychiatric Medical History: Reports: Dementia, Depression Denies: Alcohol Dependency, Substance Abuse, Tobacco Dependency Traumatic Medical History: Reports: None Infectious Medical History: Reports: None Past Surgical History Past Surgical History: Reports: Hysterectomy, Orthopedic Surgery - L knee and L ankle Denies: Pacemaker Social History Lives with: Fdc Smoking Status: Never Smoker Frequency of Alcohol Use: None Hx Recreational Drug Use: No Drugs: None Hx Prescription Drug Abuse: No - Advance Directive Resuscitation Status: Do Not Resuscitate Family History Parental Family History Reviewed: Yes - As per her daughter no family history of CKD/ESRD. Children Family History Reviewed: No Sibling(s) Family History Reviewed.: No Medication/Allergy Home Medications: Acetaminophen [Pediacare Fever [employer] In[employer]] 650 mg PEG Q6HP PRN 06/24/18 Ascorbic Acid [Vitamin C] 1,000 mg PEG DAILY 06/24/18 Cholecalciferol (Vitamin D3) [Vitamin D3 1000 Unit Tablet] 1,000 unit PEG DAILY 06/24/18 Cranberry Extract [Cranberry 250 mg Tablet] 250 mg PEG BID 06/24/18 Cyanocobalamin (Vitamin B-12) [Vitamin B-12 1000 mcg Tablet] 1,000 mcg PEG DAILY 06/24/18 Docusate Sodium [Colace Udc 100 mg/10 ml Oral Soln] 100 mg PEG DAILY 06/24/18 Eyelid Cleanser Combination 3 [Ocusoft Lid Scrub Plus] 1 applic OU QAM 06/24/18 Famotidine [Pepcid] 20 mg PEG DAILY 06/24/18 Ipratropium/Albuterol Sulfate [Duoneb 3 ml Ampul] 3 ml NEB Q8HP PRN 06/24/18 Latanoprost/Pf [Latanoprost 0.005% Eye Drop] 1 drop OD QHS 06/24/18 Magnesium Hydroxide [Milk of Magnesia 30 ml Udcup] 30 ml PEG DAILYP PRN 06/24/18 Magnesium Oxide [Magox] 400 mg PEG BID 06/24/18 Multivitamin [My Favorite Multiple] 30 ml PEG QAM 06/24/18 Pot Chl 10% Danielle 20meq/15ml 10 ml PEG DAILY 06/24/18 Psyllium Husk (with Sugar) [Metamucil Packet] 3.4 gm PEG BID 06/24/18 Clotrimazole/Betamethasone Dip [Lotrisone Cream 15 gm] 1 applic TOP BID tube 06/30/18 Albuterol Sulfate [Ventolin 0.083% Neb 2.5 mg/3 mL Ampul] 1 vial NEB Q6HP PRN 10/29/18 Polyvinyl Alcohol [Liquitears 1.4% Ophth Soln 15 ml] 1 drop OU Q8 10/29/18 Allergies/Adverse Reactions: Sulfa (Sulfonamide Antibiotics) Allergy (Severe, Verified 04/11/16 18:16) tongue levofloxacin [From Levaquin] Allergy (Verified 04/11/16 18:16) nickel [Nickel] Allergy (Verified 04/11/16 18:16) Review of Systems ROS unobtainable: Due to mental status - However discussions were done with the daughters and they gave me an idea what her status was prior to being admitted at the alf.Is completely dependent on alf personnel for her ADLs and she is on a gastric tube feed. Apparently they have not been doing appropriate suctioning as well as making sure her bowels were adequately moving. Physical Exam Vital Signs: Temp Pulse Resp BP Pulse Ox 97.3 F 108 H 34 H 152/86 H 95 11/02/18 08:00 11/02/18 10:00 11/02/18 10:00 11/02/18 10:00 11/02/18 10:00 Intake & Output 11/01/18 11/02/18 11/03/18 06:59 06:59 06:59 Intake Total 367 50 91 Output Total 95 397 150 Balance 272 -347 -59 Weight 64.6 kg 65 kg General appearance: PRESENT: no acute distress Exam: Patient is quite moribund with contractures. Unresponsive to oral and shaken commands. Eye exam: PRESENT: EOMI, PERRLA. ABSENT: periorbital swelling Ear exam: PRESENT: normal external ear exam Mouth exam: PRESENT: neck supple Neck exam: ABSENT: lymphadenopathy, meningismus, tenderness, thyromegaly, tracheal deviation Respiratory exam: PRESENT: clear to auscultation alina, crackles, decreased breath sounds, rhonchi - Scattered rhonchi was heard in both lung vilchis suggestive of possible aspiration. Cardiovascular exam: PRESENT: +S1, +S2 GI/Abdominal exam: PRESENT: distended, firm, normal bowel sounds. ABSENT: organomegaly, tenderness Extremities exam: ABSENT: pedal edema Neurological exam: PRESENT: altered Skin exam: ABSENT: cyanosis, erythema, mottled, rash Results Laboratory Results: 11/02/18 03:43 11/02/18 03:43 11/02/18 11/02/18 11/02/18 01:20 03:43 03:43 WBC 10.3 RBC 3.70 L Hgb 11.6 L Hct 33.9 L MCV 92 MCH 31.3 MCHC 34.2 RDW 13.2 Plt Count 200 Seg Neutrophils % Not Reportable Lymphocytes % Not Reportable Monocytes % Not Reportable Eosinophils % Not Reportable Basophils % Not Reportable Absolute Neutrophils Not Reportable Absolute Lymphocytes Not Reportable Absolute Monocytes Not Reportable Absolute Eosinophils Not Reportable Absolute Basophils Not Reportable Carbonic Acid HCO3/H2CO3 Ratio ABG pH ABG pCO2 ABG pO2 ABG HCO3 ABG O2 Saturation ABG Base Excess FiO2 Sodium 139.3 Potassium 2.9 L* Chloride 90 L Carbon Dioxide 33 H Anion Gap 16 BUN 99 H Creatinine 3.32 H Est GFR ( Amer) 16 L Est GFR (Non-Af Amer) 13 L Glucose 136 H Calcium 8.7 Magnesium 2.6 H Total Bilirubin 0.4 AST 50 H ALT 54 H Alkaline Phosphatase 62 Total Protein 5.6 L Albumin 2.8 L Urine Color YELLOW Urine Appearance CLOUDY Urine pH 6.0 Ur Specific [place] 1.016 Urine Protein 30 H Urine Glucose (UA) NEGATIVE Urine Ketones NEGATIVE Urine Blood MODERATE H Urine Nitrite NEGATIVE Ur Leukocyte Esterase LARGE H Urine WBC (Auto) 50 Urine RBC (Auto) 10 11/02/18 04:28 WBC RBC Hgb Hct MCV MCH MCHC RDW Plt Count Seg Neutrophils % Lymphocytes % Monocytes % Eosinophils % Basophils % Absolute Neutrophils Absolute Lymphocytes Absolute Monocytes Absolute Eosinophils Absolute Basophils Carbonic Acid 1.91 H HCO3/H2CO3 Ratio 18:1 ABG pH 7.36 ABG pCO2 63.3 H ABG pO2 105.8 H ABG HCO3 35.2 H ABG O2 Saturation 97.5 ABG Base Excess 7.7 FiO2 55% Sodium Potassium Chloride Carbon Dioxide Anion Gap BUN Creatinine Est GFR ( Amer) Est GFR (Non-Af Amer) Glucose Calcium Magnesium Total Bilirubin AST ALT Alkaline Phosphatase Total Protein Albumin Urine Color Urine Appearance Urine pH Ur Specific [place] Urine Protein Urine Glucose (UA) Urine Ketones Urine Blood Urine Nitrite Ur Leukocyte Esterase Urine WBC (Auto) Urine RBC (Auto) 10/29/18 10/29/18 10/29/18 02:19 08:23 08:23 Creatine Kinase 33 CK-MB (CK-2) 4.60 H Troponin I < 0.012 0.017 NT-Pro-B Natriuret Pep 4730 H 10/29/18 10/29/18 10/29/18 14:54 14:54 20:13 Creatine Kinase 21 L 25 L CK-MB (CK-2) 3.13 Troponin I 0.026 NT-Pro-B Natriuret Pep 10/29/18 10/30/18 10/30/18 20:13 13:01 13:01 Creatine Kinase 442 H CK-MB (CK-2) 2.35 2.30 Troponin I 0.025 0.086 NT-Pro-B Natriuret Pep 10/30/18 10/30/18 10/30/18 17:50 17:50 17:50 Creatine Kinase 470 H CK-MB (CK-2) 2.69 Troponin I 0.074 NT-Pro-B Natriuret Pep 55669 H 10/31/18 10/31/18 10/31/18 00:10 00:10 07:03 Creatine Kinase 428 H CK-MB (CK-2) 3.81 2.77 Troponin I 0.090 0.176 NT-Pro-B Natriuret Pep 10/31/18 10/31/18 10/31/18 07:03 07:03 12:36 Creatine Kinase 382 H CK-MB (CK-2) 2.21 Troponin I 0.256 NT-Pro-B Natriuret Pep 37413 H 10/31/18 10/31/18 10/31/18 12:36 18:35 18:35 Creatine Kinase 302 H 243 H CK-MB (CK-2) 1.76 Troponin I 0.359 NT-Pro-B Natriuret Pep Impressions: KUB X-Ray 10/31/18 05:59 IMPRESSION: NO RADIOGRAPHIC EVIDENCE FOR ACUTE ABDOMINAL DISEASE. LARGE AMOUNT OF STOOL CONSISTENT WITH CONSTIPATION. Renal Ultrasound 10/31/18 19:13 IMPRESSION: BILATERAL RENAL CORTICAL CYSTS. NO HYDRONEPHROSIS. Chest X-Ray 11/02/18 06:00 IMPRESSION: STABLE APPEARANCE OF THE CHEST. Assessment & Plan - Diagnosis (1) Acute kidney injury Plan: Patient has gone into acute kidney injury and is anuric. Patient does not c urrently show signs of fluid overload. I believe she could have been overdiuresed after she initially may have presented with some amount of heart failure. Had a lengthy discussion with her daughters 1 of whom who is power of sports attorney. Patient currently is not in any need of renal replacements. However she may require that over the next few days. However given her overall comorbidities and current moribund status overall with the end-stage Parkinson's disease and dementia with contractures I would withhold her from having any renal replacements.Explained the process of of dialysis and the possibility that she might need it in the long-term. Patient's daughters have finally agreed that they would not want her mother to go through this process of dialysis and I concur with that idea. Meanwhile will apply conservative measures. Start her on gentle hydration. Withhold any anti-renal medications. Check Vanco trough levels which I think is also a contributory factor to her TITA. (2) UTI (urinary tract infection) Qualifiers: Urinary tract infection type: acute cystitis Is this a current diagnosis for this admission?: Yes Plan: Patient on antibiotics. Continue that as per hospitalist. (3) Acute congestive heart failure Qualifiers: Heart failure type: unspecified Qualified Code(s): I50.9 - Heart failure, unspecified Is this a current diagnosis for this admission?: Yes Plan: Currently patient not showing signs of heart failure. Possibly over diuresed. Start gentle hydration. Echocardiogram shows preserved LV function. (4) Constipation Qualifiers: Constipation type: unspecified constipation type Qualified Code(s): K59.00 - Constipation, unspecified Is this a current diagnosis for this admission?: Yes Plan: Discussed with RN, about doing a finger/digital evacuation followed by soapsuds enema. (5) Do not resuscitate Is this a current diagnosis for this admission?: Yes Plan: Agree with that decision. (6) Parkinson's disease dementia Qualifiers: Dementia behavioral disturbance: without behavioral disturbance Qualified Code(s): G20 - Parkinson's disease; F02.80 - Dementia in other diseases classified elsewhere without behavioral disturbance Is this a current diagnosis for this admission?: Yes Plan: Unfortunately long-standing complicated Parkinson's disease with dementia and severe contractures currently being G-tube fed. Overall poor prognosis. Discussed extensively with the 2 daughters. (7) Sepsis Qualifiers: Sepsis type: sepsis due to unspecified organism Qualified Code(s): A41.9 - Sepsis, unspecified organism Is this a current diagnosis for this admission?: Yes Plan: Possibly from UTI. Other foci also includes possible aspiration, decubitus ulcers. Patient is got a left shift. Currently on antibiotics.
[2018-11-02] MEDS ORDERED: VANCOMYCIN HCL 750 MG in DEXTROSE 5%-WATER 250 ML IV SCH (15:00)
[2018-11-02] MEDS ORDERED: POTASSI CL 20 MEQ/50 ML RIDER 20 MEQ/50 ML RTUPB IV ONE (16:00)
[2018-11-02] MEDS: LEVALBUTEROL HCL NEB 0.63 MG/3 ML AMPUL NEB PRN (20:57)
[2018-11-02] MEDS: LATANOPROST 0.005% OPH SOLN 2.5 ML OU SCH (21:19)
[2018-11-02 22:50] LABS: ANION GAP 11 (5-19); BLOOD UREA NITROGEN 104 mg/dL (7-20); CALCIUM 8.8 mg/dL (8.4-10.2); CARBON DIOXIDE 32 mmol/L (22-30); CHLORIDE 98 mmol/L (98-107); GLUCOSE 148 mg/dL (75-110); POTASSIUM 3.8 mmol/L (3.6-5.0); SODIUM 141.3 mmol/L (137-145)
[2018-11-03 04:33] LABS: ARTERIAL BLOOD BASE EXCESS 5.4 mmol/L; ARTERIAL BLOOD H2CO3 1.57 mmol/L (1.05-1.35); ARTERIAL BLOOD HCO3 31.3 mmol/L (20-24); ARTERIAL BLOOD O2 SATURATION 97.4 % (94-98); ARTERIAL BLOOD PCO2 52.2 mmHg (35-45); ARTERIAL BLOOD PO2 98.5 mmHg (80-100); ARTERIAL BLOOD TOTAL CO2 32.9 mmol/L (21-25)
[2018-11-03 04:35] LABS: ARTERIAL BLOOD FIO2 50%
[2018-11-03 05:45] LABS: HEMATOCRIT 34.3 % (36.0-47.0); HEMOGLOBIN 11.8 g/dL (12.0-15.5); MEAN CORPUSCULAR HEMOGLOBIN 31.2 pg (27.0-33.4); MEAN CORPUSCULAR HGB CONC 34.4 g/dL (32.0-36.0); MEAN CORPUSCULAR VOLUME 91 fl (80-97); PLATELET COUNT 215 10^3/uL (150-450); RED BLOOD COUNT 3.78 10^6/uL (3.72-5.28); RED CELL DISTRIBUTION WIDTH 13.3 % (11.5-14.0); WHITE BLOOD COUNT 9.4 10^3/uL (4.0-10.5)
[2018-11-03] MEDS: HYDROCORTISONE SOD SUCCINATE INJ/PF 100 MG/2 ML SDV IV SCH ×3 (05:52→21:11)
[2018-11-03 05:55] LABS: ANION GAP 14 (5-19); BLOOD UREA NITROGEN 102 mg/dL (7-20); CALCIUM 9.3 mg/dL (8.4-10.2); CARBON DIOXIDE 33 mmol/L (22-30); CHLORIDE 98 mmol/L (98-107); GLUCOSE 157 mg/dL (75-110); POTASSIUM 3.5 mmol/L (3.6-5.0); SODIUM 144.8 mmol/L (137-145)
[2018-11-03 06:25] LABS: ABSOLUTE LYMPHOCYTES# (MANUAL) 0.3 10^3/uL (0.5-4.7); ABSOLUTE MONOCYTES # (MANUAL) 0.3 10^3/uL (0.1-1.4); ABSOLUTE NEUTROPHILS# (MANUAL) 8.8 10^3/uL (1.7-8.2); BAND NEUTROPHILS % (MANUAL) 1 % (3-5); BASOPHILS % (MANUAL) 0 % (0-2); EOSINOPHILS % (MANUAL) 0 % (0-6); LYMPHOCYTES % (MANUAL) 3 % (13-45); MONOCYTES % (MANUAL) 3 % (3-13); SEGMENTED NEUTROPHILS % (MAN) 93 % (42-78); TOTAL CELLS COUNTED 100
[2018-11-03 06:26] LABS: PLATELET COMMENT ADEQUATE; POIKILOCYTOSIS SLIGHT; TARGET CELLS SLIGHT
[2018-11-03] MEDS: VANCOMYCIN HCL 750 MG in DEXTROSE 5%-WATER 250 ML IV SCH (07:51)
--- NOTE | 2018-11-03 08:43 | RADIOLOGY REPORT (SQ) ---
EXAM DESCRIPTION: CHEST SINGLE VIEW COMPLETED DATE/TIME: 11/03/2018 6:35 am REASON FOR STUDY: resp failure vol overload COMPARISON: 11/02/2018 EXAM PARAMETERS: NUMBER OF VIEWS: One view. TECHNIQUE: Single frontal radiographic view of the chest acquired. RADIATION DOSE: NA LIMITATIONS: None. FINDINGS: LUNGS AND PLEURA elevation of the right hemidiaphragm, unchanged finding. No acute pulmon rosa consolidation. No pneumothorax or pleural effusion. MEDIASTINUM AND HILAR STRUCTURES: Stable appearance. HEART AND VASCULAR STRUCTURES: Cardiomegaly, unchanged finding. BONES: No acute findings. HARDWARE: None in the chest. OTHER: No other significant finding. IMPRESSION: 1. No significant interval changes since the prior examination dated 11/02/2018. Stable appearance to the chest. TECHNICAL DOCUMENTATION: JOB ID: [id number] [employer]- All Rights Reserved Reading location - IP/workstation name: [email or web address]
[2018-11-03] MEDS: LEVALBUTEROL HCL NEB 0.63 MG/3 ML AMPUL NEB PRN (09:32)
[2018-11-03] MEDS: CHOLECALCIFEROL (D3) 1,000 UNIT TABLET PEG SCH (09:33)
[2018-11-03] MEDS: METOCLOPRAMIDE HCL INJ/PF 10 MG/2 ML SDV IV SCH ×4 (09:33→21:11)
[2018-11-03] MEDS: CYANOCOBALAMIN (VITAMIN B-12) 1,000 MCG TABLET PEG SCH (09:33)
[2018-11-03] MEDS: MULTIVITS W-MIN/IRON SOLN 60 ML PEG SCH (09:33)
[2018-11-03] MEDS: MAGNESIUM OXIDE 400 MG TABLET PEG SCH ×2 (09:33→17:43)
[2018-11-03] MEDS: FAMOTIDINE 20 MG TABLET PEG SCH (09:33)
[2018-11-03] MEDS: ASCORBIC ACID 500 MG TABLET PEG SCH (09:33)
[2018-11-03] MEDS: DOCUSATE SODIUM 100 MG/10 ML UDC PEG SCH (09:34)
[2018-11-03] MEDS: ENOXAPARIN SODIUM INJ 30 MG/0.3 ML DISP.SYRIN SUBCUT SCH (09:34)
[2018-11-03] MEDS: POLYETHYLENE GLYCOL 3350 POWDER 17 GM/1 PACKET PEG SCH (09:34)
[2018-11-03] MEDS: CEFTRIAXONE SODIUM 1,000 MG in DEXTROSE 5%-WATER 50 ML IV SCH (09:35)
--- NOTE | 2018-11-03 12:12 | PDOC PROGRESS REPORT ---
Subjective Progress Note for:: 11/03/18 Subjective:: Patient currently resting on bipap Reason For Visit: ACUTE RESPIRATORY FAILURE WITH HYPOXIA Physical Exam Vital Signs: Temp Pulse Resp BP Pulse Ox 98.4 F 100 18 136/77 H 98 11/03/18 08:00 11/03/18 10:00 11/03/18 10:00 11/03/18 10:00 11/03/18 10:00 Intake & Output 11/02/18 11/03/18 11/04/18 06:59 06:59 06:59 Intake Total 50 533 400 Output Total 397 765 0 Balance -347 -232 400 Weight 65 kg 69.7 kg General appearance: PRESENT: no acute distress, disheveled Head exam: PRESENT: atraumatic, normocephalic Eye exam: PRESENT: conjunctiva pink, EOMI, PERRLA. ABSENT: scleral icterus Ear exam: PRESENT: normal external ear exam Mouth exam: PRESENT: moist, tongue midline Neck exam: ABSENT: carotid bruit, JVD, lymphadenopathy, thyromegaly Respiratory exam: PRESENT: rhonchi, wheezes Cardiovascular exam: PRESENT: RRR, +S1, +S2, tachycardia Pulses: PRESENT: normal radial pulses GI/Abdominal exam: PRESENT: soft. ABSENT: hyperactive bowel sounds, hypoactive bowel sounds, mass Rectal exam: PRESENT: deferred Extremities exam: PRESENT: full ROM. ABSENT: calf tenderness, clubbing, pedal edema Musculoskeletal exam: PRESENT: ambulatory. ABSENT: deformity, dislocation Neurological exam: ABSENT: awake Psychiatric exam: PRESENT: appropriate affect, normal mood. ABSENT: homicidal ideation, suicidal ideation Skin exam: PRESENT: dry, intact, warm. ABSENT: cyanosis, rash Results Laboratory Results: 11/03/18 05:09 11/03/18 05:09 11/02/18 11/02/18 11/02/18 14:16 14:16 22:20 WBC RBC Hgb Hct MCV MCH MCHC RDW Plt Count Seg Neutrophils % Lymphocytes % Monocytes % Eosinophils % Basophils % Absolute Neutrophils Absolute Lymphocytes Absolute Monocytes Absolute Eosinophils Absolute Basophils Carbonic Acid HCO3/H2CO3 Ratio ABG pH ABG pCO2 ABG pO2 ABG HCO3 ABG O2 Saturation ABG Base Excess FiO2 Sodium 141.3 Potassium 3.1 L 3.8 Chloride 98 Carbon Dioxide 32 H Anion Gap 11 BUN 104 H Creatinine 2.91 H Est GFR ( Amer) 18 L Est GFR (Non-Af Amer) 15 L Glucose 148 H Calcium 8.8 Magnesium 2.6 H 11/03/18 11/03/18 11/03/18 04:20 05:09 05:09 WBC 9.4 RBC 3.78 Hgb 11.8 L Hct 34.3 L MCV 91 MCH 31.2 MCHC 34.4 RDW 13.3 Plt Count 215 Seg Neutrophils % Not Reportable Lymphocytes % Not Reportable Monocytes % Not Reportable Eosinophils % Not Reportable Basophils % Not Reportable Absolute Neutrophils Not Reportable Absolute Lymphocytes Not Reportable Absolute Monocytes Not Reportable Absolute Eosinophils Not Reportable Absolute Basophils Not Reportable Carbonic Acid 1.57 H HCO3/H2CO3 Ratio 19:1 ABG pH 7.40 ABG pCO2 52.2 H ABG pO2 98.5 ABG HCO3 31.3 H ABG O2 Saturation 97.4 ABG Base Excess 5.4 FiO2 50% Sodium 144.8 Potassium 3.5 L Chloride 98 Carbon Dioxide 33 H Anion Gap 14 BUN 102 H Creatinine 2.65 H Est GFR ( Amer) 21 L Est GFR (Non-Af Amer) 17 L Glucose 157 H Calcium 9.3 Magnesium 2.6 H 10/29/18 03:04 Catheterized Urine [facility] 10/29/18 10/29/18 10/29/18 02:19 08:23 08:23 Creatine Kinase 33 CK-MB (CK-2) 4.60 H Troponin I < 0.012 0.017 NT-Pro-B Natriuret Pep 4730 H 10/29/18 10/29/18 10/29/18 14:54 14:54 20:13 Creatine Kinase 21 L 25 L CK-MB (CK-2) 3.13 Troponin I 0.026 NT-Pro-B Natriuret Pep 10/29/18 10/30/18 10/30/18 20:13 13:01 13:01 Creatine Kinase 442 H CK-MB (CK-2) 2.35 2.30 Troponin I 0.025 0.086 NT-Pro-B Natriuret Pep 10/30/18 10/30/18 10/30/18 17:50 17:50 17:50 Creatine Kinase 470 H CK-MB (CK-2) 2.69 Troponin I 0.074 NT-Pro-B Natriuret Pep 25995 H 10/31/18 10/31/18 10/31/18 00:10 00:10 07:03 Creatine Kinase 428 H CK-MB (CK-2) 3.81 2.77 Troponin I 0.090 0.176 NT-Pro-B Natriuret Pep 10/31/18 10/31/18 10/31/18 07:03 07:03 12:36 Creatine Kinase 382 H CK-MB (CK-2) 2.21 Troponin I 0.256 NT-Pro-B Natriuret Pep 78718 H 10/31/18 10/31/18 10/31/18 12:36 18:35 18:35 Creatine Kinase 302 H 243 H CK-MB (CK-2) 1.76 Troponin I 0.359 NT-Pro-B Natriuret Pep Impressions: KUB X-Ray 10/31/18 05:59 IMPRESSION: NO RADIOGRAPHIC EVIDENCE FOR ACUTE ABDOMINAL DISEASE. LARGE AMOUNT OF STOOL CONSISTENT WITH CONSTIPATION. Renal Ultrasound 10/31/18 19:13 IMPRESSION: BILATERAL RENAL CORTICAL CYSTS. NO HYDRONEPHROSIS. Chest X-Ray 11/03/18 06:00 IMPRESSION: 1. No significant interval changes since the prior examination dated 11/02/2018. Stable appearance to the chest. Assessment & Plan - Diagnosis (1) Acute congestive heart failure Qualifiers: Heart failure type: unspecified Qualified Code(s): I50.9 - Heart failure, unspecified Is this a current diagnosis for this admission?: Yes Plan: Patient underwent echocardiogram report views were not optimal (2) Acute respiratory failure with hypoxia and hypercapnia Is this a current diagnosis for this admission?: Yes Plan: NIPPV is essentially unchanged overall prognosis is very poor (3) Cardiogenic shock Is this a current diagnosis for this admission?: Yes Plan: Overloaded intermittent use of vasopressors (4) Sepsis Qualifiers: Sepsis type: sepsis due to unspecified organism Qualified Code(s): A41.9 - Sepsis, unspecified organism Is this a current diagnosis for this admission?: Yes Plan: Pyuria culture is not positive yet - Time Total Critical Time (Minutes): 45 Inpatient Scribe Statement - . Entered by Ivy Joseph, acting as scribe for Dr. Khalil.
--- NOTE | 2018-11-03 12:15 | PDOC PROGRESS REPORT ---
Subjective Progress Note for:: 11/03/18 Reason For Visit: Patient seen in the ICU today. Her daughter and the nurse were at the bedside. Patient seems relatively stable at this point. She has begun to make more urine than when I saw her earlier. She is saturating decent on current measures of oxygen therapy. Vital signs are more stable hemodynamically. Labs and medications were reviewed. Physical Exam Vital Signs: Temp Pulse Resp BP Pulse Ox 98.4 F 100 18 136/77 H 98 11/03/18 08:00 11/03/18 10:00 11/03/18 10:00 11/03/18 10:00 11/03/18 10:00 Intake & Output 11/02/18 11/03/18 11/04/18 06:59 06:59 06:59 Intake Total 50 533 400 Output Total 397 765 0 Balance -347 -232 400 Weight 65 kg 69.7 kg General appearance: PRESENT: no acute distress Exam: She looks very sickly. She is very moribund. Morbidly obese lady with BiPAP without any verbal communications. Respiratory exam: PRESENT: clear to auscultation alina, decreased breath sounds, rhonchi - Scattered.. ABSENT: crackles Cardiovascular exam: PRESENT: +S1, +S2 GI/Abdominal exam: PRESENT: distended, firm, normal bowel sounds. ABSENT: organomegaly, tenderness Extremities exam: PRESENT: pedal edema Neurological exam: PRESENT: altered Skin exam: ABSENT: erythema, mottled, rash Results Laboratory Results: 11/03/18 05:09 11/03/18 05:09 11/02/18 11/02/18 11/02/18 14:16 14:16 22:20 WBC RBC Hgb Hct MCV MCH MCHC RDW Plt Count Seg Neutrophils % Lymphocytes % Monocytes % Eosinophils % Basophils % Absolute Neutrophils Absolute Lymphocytes Absolute Monocytes Absolute Eosinophils Absolute Basophils Carbonic Acid HCO3/H2CO3 Ratio ABG pH ABG pCO2 ABG pO2 ABG HCO3 ABG O2 Saturation ABG Base Excess FiO2 Sodium 141.3 Potassium 3.1 L 3.8 Chloride 98 Carbon Dioxide 32 H Anion Gap 11 BUN 104 H Creatinine 2.91 H Est GFR ( Amer) 18 L Est GFR (Non-Af Amer) 15 L Glucose 148 H Calcium 8.8 Magnesium 2.6 H 11/03/18 11/03/18 11/03/18 04:20 05:09 05:09 WBC 9.4 RBC 3.78 Hgb 11.8 L Hct 34.3 L MCV 91 MCH 31.2 MCHC 34.4 RDW 13.3 Plt Count 215 Seg Neutrophils % Not Reportable Lymphocytes % Not Reportable Monocytes % Not Reportable Eosinophils % Not Reportable Basophils % Not Reportable Absolute Neutrophils Not Reportable Absolute Lymphocytes Not Reportable Absolute Monocytes Not Reportable Absolute Eosinophils Not Reportable Absolute Basophils Not Reportable Carbonic Acid 1.57 H HCO3/H2CO3 Ratio 19:1 ABG pH 7.40 ABG pCO2 52.2 H ABG pO2 98.5 ABG HCO3 31.3 H ABG O2 Saturation 97.4 ABG Base Excess 5.4 FiO2 50% Sodium 144.8 Potassium 3.5 L Chloride 98 Carbon Dioxide 33 H Anion Gap 14 BUN 102 H Creatinine 2.65 H Est GFR ( Amer) 21 L Est GFR (Non-Af Amer) 17 L Glucose 157 H Calcium 9.3 Magnesium 2.6 H 10/29/18 03:04 Catheterized [facility]rine [facility] 10/29/18 10/29/18 10/29/18 02:19 08:23 08:23 Creatine Kinase 33 CK-MB (CK-2) 4.60 H Troponin I < 0.012 0.017 NT-Pro-B Natriuret Pep 4730 H 10/29/18 10/29/18 10/29/18 14:54 14:54 20:13 Creatine Kinase 21 L 25 L CK-MB (CK-2) 3.13 Troponin I 0.026 NT-Pro-B Natriuret Pep 10/29/18 10/30/18 10/30/18 20:13 13:01 13:01 Creatine Kinase 442 H CK-MB (CK-2) 2.35 2.30 Troponin I 0.025 0.086 NT-Pro-B Natriuret Pep 10/30/18 10/30/18 10/30/18 17:50 17:50 17:50 Creatine Kinase 470 H CK-MB (CK-2) 2.69 Troponin I 0.074 NT-Pro-B Natriuret Pep 00382 H 10/31/18 10/31/18 10/31/18 00:10 00:10 07:03 Creatine Kinase 428 H CK-MB (CK-2) 3.81 2.77 Troponin I 0.090 0.176 NT-Pro-B Natriuret Pep 10/31/18 10/31/18 10/31/18 07:03 07:03 12:36 Creatine Kinase 382 H CK-MB (CK-2) 2.21 Troponin I 0.256 NT-Pro-B Natriuret Pep 17299 H 10/31/18 10/31/18 10/31/18 12:36 18:35 18:35 Creatine Kinase 302 H 243 H CK-MB (CK-2) 1.76 Troponin I 0.359 NT-Pro-B Natriuret Pep Impressions: KUB X-Ray 10/31/18 05:59 IMPRESSION: NO RADIOGRAPHIC EVIDENCE FOR ACUTE ABDOMINAL DISEASE. LARGE AMOUNT OF STOOL CONSISTENT WITH CONSTIPATION. Renal Ultrasound 10/31/18 19:13 IMPRESSION: BILATERAL RENAL CORTICAL CYSTS. NO HYDRONEPHROSIS. Chest X-Ray 11/03/18 06:00 IMPRESSION: 1. No significant interval changes since the prior examination dated 11/02/2018. Stable appearance to the chest. Assessment & Plan - Diagnosis (1) Acute kidney injury Plan: Currently she is slowly increasing her urine output to the point now that she is not oliguric which is encouraging. Would continue current lines of managem ent but will increase her fluids gently. Discussed with nurse. I believe that this patient is going to turn around to the point that she could go back to the half-way. At this point her daughter interjected saying that they have decided to make her into hospice/comfort care and will not like her to be sent back to the same half-way that she was in. Hospice has been consulted and awaiting further evaluations and recommendations. Obviously they have agreed to the fact that she is not for any heroic or invasive measures which includes dialysis as well. (2) UTI (urinary tract infection) Is this a current diagnosis for this admission?: Yes Plan: On antibiotics. (3) Acute congestive heart failure Qualifiers: Qualified Code(s): I50.9 - Heart failure, unspecified Is this a current diagnosis for this admission?: Yes Plan: Stable. Obviously she had been over diuresed which led her to TITA as well. Currently being gently hydrated. No signs of cardiac decompensation. (4) Constipation Qualifiers: Qualified Code(s): K59.00 - Constipation, unspecified Is this a current diagnosis for this admission?: Yes Plan: Has had some response to conservative measures. (5) Do not resuscitate Is this a current diagnosis for this admission?: Yes Plan: Status quo. (6) Parkinson's disease dementia Qualifiers: Qualified Code(s): G20 - Parkinson's disease; F02.80 - Dementia in other diseases classified elsewhere without behavioral disturbance Is this a current diagnosis for this admission?: Yes Plan: End-stage with severe contractures and dementia and immobility. Very poor prognosis. (7) Sepsis Qualifiers: Qualified Code(s): A41.9 - Sepsis, unspecified organism Is this a current diagnosis for this admission?: Yes Plan: Improving and now currently hemodynamically stable. Off all pressors.
[2018-11-03] MEDS: NORMAL SALINE 1000 ML 1,000 ML IV PRN (14:45)
--- NOTE | 2018-11-03 16:40 | PDOC PROGRESS REPORT ---
Subjective Progress Note for:: 11/03/18 Subjective:: This is 87 years old black female patient from [facility], brought with chief complaint of acute respiratory failure. Patient was found dyspneic and hypoxic with O2 saturation of 70% by [facility] staff. She is resuscitated with [id number] in route to hospital. Patient has underlying chronic Parkinson's disease, dementia, nonverbal and bedridden. Currently patient is on home BiPAP with full mask. Patient is DNR/DNI and the family member are on discussion to transition her to comfort care. Reason For Visit: ACUTE RESPIRATORY FAILURE WITH HYPOXIA Physical Exam Vital Signs: Temp Pulse Resp BP Pulse Ox 98.8 F 95 20 110/67 97 11/03/18 12:00 11/03/18 14:00 11/03/18 14:00 11/03/18 14:00 11/03/18 14:00 Intake & Output 11/02/18 11/03/18 11/04/18 06:59 06:59 06:59 Intake Total 50 533 1400 Output Total 397 765 200 Balance -347 -232 1200 Weight 65 kg 69.7 kg General appearance: PRESENT: no acute distress Neck exam: ABSENT: carotid bruit, JVD, lymphadenopathy, thyromegaly Respiratory exam: PRESENT: crackles, decreased breath sounds Cardiovascular exam: PRESENT: RRR. ABSENT: diastolic murmur, rubs, systolic murmur Results Laboratory Results: 11/03/18 05:09 11/03/18 05:09 11/02/18 11/03/18 11/03/18 22:20 04:20 05:09 WBC RBC Hgb Hct MCV MCH MCHC RDW Plt Count Seg Neutrophils % Lymphocytes % Monocytes % Eosinophils % Basophils % Absolute Neutrophils Absolute Lymphocytes Absolute Monocytes Absolute Eosinophils Absolute Basophils Carbonic Acid 1.57 H HCO3/H2CO3 Ratio 19:1 ABG pH 7.40 ABG pCO2 52.2 H ABG pO2 98.5 ABG HCO3 31.3 H ABG O2 Saturation 97.4 ABG Base Excess 5.4 FiO2 50% Sodium 141.3 144.8 Potassium 3.8 3.5 L Chloride 98 98 Carbon Dioxide 32 H 33 H Anion Gap 11 14 BUN 104 H 102 H Creatinine 2.91 H 2.65 H Est GFR ( Amer) 18 L 21 L Est GFR (Non-Af Amer) 15 L 17 L Glucose 148 H 157 H Calcium 8.8 9.3 Magnesium 2.6 H 11/03/18 05:09 WBC 9.4 RBC 3.78 Hgb 11.8 L Hct 34.3 L MCV 91 MCH 31.2 MCHC 34.4 RDW 13.3 Plt Count 215 Seg Neutrophils % Not Reportable Lymphocytes % Not Reportable Monocytes % Not Reportable Eosinophils % Not Reportable Basophils % Not Reportable Absolute Neutrophils Not Reportable Absolute Lymphocytes Not Reportable Absolute Monocytes Not Reportable Absolute Eosinophils Not Reportable Absolute Basophils Not Reportable Carbonic Acid HCO3/H2CO3 Ratio ABG pH ABG pCO2 ABG pO2 ABG HCO3 ABG O2 Saturation ABG Base Excess FiO2 Sodium Potassium Chloride Carbon Dioxide Anion Gap BUN Creatinine Est GFR ( Amer) Est GFR (Non-Af Amer) Glucose Calcium Magnesium 10/29/18 03:04 Catheterized Urine Urine Culture - Final [facility] 10/29/18 10/29/18 10/29/18 02:19 08:23 08:23 Creatine Kinase 33 CK-MB (CK-2) 4.60 H Troponin I < 0.012 0.017 NT-Pro-B Natriuret Pep 4730 H 10/29/18 10/29/18 10/29/18 14:54 14:54 20:13 Creatine Kinase 21 L 25 L CK-MB (CK-2) 3.13 Troponin I 0.026 NT-Pro-B Natriuret Pep 10/29/18 10/30/18 10/30/18 20:13 13:01 13:01 Creatine Kinase 442 H CK-MB (CK-2) 2.35 2.30 Troponin I 0.025 0.086 NT-Pro-B Natriuret Pep 10/30/18 10/30/18 10/30/18 17:50 17:50 17:50 Creatine Kinase 470 H CK-MB (CK-2) 2.69 Troponin I 0.074 NT-Pro-B Natriuret Pep 24930 H 10/31/18 10/31/18 10/31/18 00:10 00:10 07:03 Creatine Kinase 428 H CK-MB (CK-2) 3.81 2.77 Troponin I 0.090 0.176 NT-Pro-B Natriuret Pep 10/31/18 10/31/18 10/31/18 07:03 07:03 12:36 Creatine Kinase 382 H CK-MB (CK-2) 2.21 Troponin I 0.256 NT-Pro-B Natriuret Pep 39849 H 10/31/18 10/31/18 10/31/18 12:36 18:35 18:35 Creatine Kinase 302 H 243 H CK-MB (CK-2) 1.76 Troponin I 0.359 NT-Pro-B Natriuret Pep Impressions: KUB X-Ray 10/31/18 05:59 IMPRESSION: NO RADIOGRAPHIC EVIDENCE FOR ACUTE ABDOMINAL DISEASE. LARGE AMOUNT OF STOOL CONSISTENT WITH CONSTIPATION. Renal Ultrasound 10/31/18 19:13 IMPRESSION: BILATERAL RENAL CORTICAL CYSTS. NO HYDRONEPHROSIS. Chest X-Ray 11/03/18 06:00 IMPRESSION: 1. No significant interval changes since the prior examination d ated 11/02/2018. Stable appearance to the chest. Assessment and Plan - Diagnosis (1) Acute hypoxemic respiratory failure Is this a current diagnosis for this admission?: Yes Plan: Continue current regimen (2) Acute kidney injury Is this a current diagnosis for this admission?: Yes Plan: Patient has been evaluated by Dr. Fatima prize jacker and he stated that patient is not a candidate for renal replacement therapy. Initially patient was about to transfer to [facility] for dialysis but the daughter who is the POA declined. (3) Complicated UTI (urinary tract infection) Is this a current diagnosis for this admission?: Yes Plan: Patient has been on ceftriaxone. (4) Acute CHF Qualifiers: Heart failure type: diastolic Qualified Code(s): I50.31 - Acute diastolic (congestive) heart failure Is this a current diagnosis for this admission?: Yes Plan: Patient has been diuresed aggressively. (5) Parkinsons disease Is this a current diagnosis for this admission?: Yes Plan: Continue his home medication (6) Hyperkalemia Is this a current diagnosis for this admission?: Yes Plan: Has resolved
[2018-11-03] MEDS: LATANOPROST 0.005% OPH SOLN 2.5 ML OU SCH (21:12)
[2018-11-04 04:29] LABS: ABSOLUTE LYMPHOCYTES (AUTO) 0.6 10^3/uL (0.5-4.7); ABSOLUTE MONOCYTES (AUTO) 0.4 10^3/uL (0.1-1.4); ABSOLUTE NEUT (AUTO) 5.4 10^3/uL (1.7-8.2); BASOPHILS % (AUTO) 0.2 % (0-2); EOSINOPHILS % (AUTO) 0.1 % (0-6); HEMATOCRIT 34.3 % (36.0-47.0); HEMOGLOBIN 11.8 g/dL (12.0-15.5); LYMPHOCYTES % (AUTO) 9.7 % (13-45); MEAN CORPUSCULAR HEMOGLOBIN 30.9 pg (27.0-33.4); MEAN CORPUSCULAR HGB CONC 34.3 g/dL (32.0-36.0); MEAN CORPUSCULAR VOLUME 90 fl (80-97); MONOCYTES % (AUTO) 5.8 % (3-13); PLATELET COUNT 205 10^3/uL (150-450); RED BLOOD COUNT 3.82 10^6/uL (3.72-5.28); RED CELL DISTRIBUTION WIDTH 13.7 % (11.5-14.0); SEGMENTED NEUTROPHILS % (AUTO) 84.2 % (42-78); TOTAL CELLS COUNTED % (AUTO) 100 %; WHITE BLOOD COUNT 6.5 10^3/uL (4.0-10.5)
[2018-11-04 04:52] LABS: ANION GAP 8 (5-19); BLOOD UREA NITROGEN 92 mg/dL (7-20); CALCIUM 9.7 mg/dL (8.4-10.2); CARBON DIOXIDE 35 mmol/L (22-30); CHLORIDE 107 mmol/L (98-107); GLUCOSE 163 mg/dL (75-110); POTASSIUM 3.4 mmol/L (3.6-5.0); SODIUM 149.9 mmol/L (137-145)
[2018-11-04 05:08] LABS: ARTERIAL BLOOD BASE EXCESS 8.2 mmol/L; ARTERIAL BLOOD H2CO3 1.54 mmol/L (1.05-1.35); ARTERIAL BLOOD HCO3 33.8 mmol/L (20-24); ARTERIAL BLOOD O2 SATURATION 95.4 % (94-98); ARTERIAL BLOOD PCO2 51.3 mmHg (35-45); ARTERIAL BLOOD PH 7.44 (7.35-7.45); ARTERIAL BLOOD PO2 75.5 mmHg (80-100); ARTERIAL BLOOD TOTAL CO2 35.4 mmol/L (21-25)
[2018-11-04 05:09] LABS: ARTERIAL BLOOD FIO2 30%
[2018-11-04] MEDS: HYDROCORTISONE SOD SUCCINATE INJ/PF 100 MG/2 ML SDV IV SCH ×3 (05:37→22:32)
--- NOTE | 2018-11-04 08:32 | RADIOLOGY REPORT (SQ) ---
EXAM DESCRIPTION: CHEST SINGLE VIEW COMPLETED DATE/TIME: 11/04/2018 6:28 am REASON FOR STUDY: resp failure COMPARISON: 11/03/2018 NUMBER OF VIEWS: One view. TECHNIQUE: Single frontal radiographic image of the chest acquired. LIMITATIONS: None. FINDINGS: LUNGS AND PLEURA: Stable appearance. MEDIASTINUM AND HILAR STRUCTURES: Stable heart size and mediastinal structures. HEART AND VASCULAR STRUCTURES: Stable appearance. BONES: No acute findings. HARDWARE: None in the chest. OTHER: No other significant finding. IMPRESSION: STABLE APPEARANCE OF THE CHEST. TECHNICAL DOCUMENTATION: JOB ID: [id number] [employer]- All Rights Reserved Reading location - IP/workstation name: [email or web address]
[2018-11-04] MEDS: METOCLOPRAMIDE HCL INJ/PF 10 MG/2 ML SDV IV SCH ×4 (08:45→22:32)
[2018-11-04] MEDS: NORMAL SALINE 1000 ML 1,000 ML IV PRN (08:47)
[2018-11-04] MEDS: MAGNESIUM OXIDE 400 MG TABLET PEG SCH ×2 (10:01→18:35)
[2018-11-04] MEDS: CEFTRIAXONE SODIUM 1,000 MG in DEXTROSE 5%-WATER 50 ML IV SCH (10:01)
[2018-11-04] MEDS: ASCORBIC ACID 500 MG TABLET PEG SCH (10:01)
[2018-11-04] MEDS: CHOLECALCIFEROL (D3) 1,000 UNIT TABLET PEG SCH (10:02)
[2018-11-04] MEDS: FAMOTIDINE 20 MG TABLET PEG SCH (10:02)
[2018-11-04] MEDS: POLYETHYLENE GLYCOL 3350 POWDER 17 GM/1 PACKET PEG SCH (10:02)
[2018-11-04] MEDS: DOCUSATE SODIUM 100 MG/10 ML UDC PEG SCH (10:02)
[2018-11-04] MEDS: ENOXAPARIN SODIUM INJ 30 MG/0.3 ML DISP.SYRIN SUBCUT SCH (10:02)
[2018-11-04] MEDS: CYANOCOBALAMIN (VITAMIN B-12) 1,000 MCG TABLET PEG SCH (10:03)
[2018-11-04] MEDS: MULTIVITS W-MIN/IRON SOLN 60 ML PEG SCH (10:04)
--- NOTE | 2018-11-04 12:35 | PDOC PROGRESS REPORT ---
Subjective Progress Note for:: 11/04/18 Reason For Visit: Patient was seen in the ICU today and discussions were done with the treating nurse Merry. Patient remains status quo. She continues on BiPAP. Tube feeds are currently held because of all the attachment valve which is being replaced. Labs and medications were reviewed which shows mild improvement in her renal numbers. Her urine output has markedly improved. Physical Exam Vital Signs: Temp Pulse Resp BP Pulse Ox 97.9 F 87 16 142/101 H 97 11/04/18 08:00 11/04/18 10:00 11/04/18 10:00 11/04/18 10:00 11/04/18 10:00 Intake & Output 11/03/18 11/04/18 11/05/18 06:59 06:59 06:59 Intake Total 533 1780 902 Output Total 765 1175 300 Balance -232 605 602 Weight 69.7 kg 65.4 kg General appearance: PRESENT: no acute distress Exam: She is unresponsive and is attached to BiPAP. Respiratory exam: PRESENT: clear to auscultation alina, crackles - Few scattered., rhonchi - Few and scattered. Cardiovascular exam: PRESENT: +S1, +S2 GI/Abdominal exam: PRESENT: distended, firm, normal bowel sounds. ABSENT: organomegaly, tenderness Extremities exam: PRESENT: pedal edema Neurological exam: PRESENT: altered Results Laboratory Results: 11/04/18 04:14 11/04/18 04:14 11/04/18 11/04/18 11/04/18 04:14 04:14 04:46 WBC 6.5 RBC 3.82 Hgb 11.8 L Hct 34.3 L MCV 90 MCH 30.9 MCHC 34.3 RDW 13.7 Plt Count 205 Seg Neutrophils % 84.2 H Lymphocytes % 9.7 L Monocytes % 5.8 Eosinophils % 0.1 Basophils % 0.2 Absolute Neutrophils 5.4 Absolute Lymphocytes 0.6 Absolute Monocytes 0.4 Absolute Eosinophils 0.0 Absolute Basophils 0.0 Carbonic Acid 1.54 H HCO3/H2CO3 Ratio 21:1 ABG pH 7.44 ABG pCO2 51.3 H ABG pO2 75.5 L ABG HCO3 33.8 H ABG O2 Saturation 95.4 ABG Base Excess 8.2 FiO2 30% Sodium 149.9 H Potassium 3.4 L Chloride 107 Carbon Dioxide 35 H Anion Gap 8 BUN 92 H Creatinine 1.93 H Est GFR ( Amer) 30 L Est GFR (Non-Af Amer) 25 L Glucose 163 H Calcium 9.7 Magnesium 2.7 H 11/02/18 01:20 Catheterized Urine Urine Culture - Final 5,000 col/ml 10/29/18 10/29/18 10/29/18 02:19 08:23 08:23 Creatine Kinase 33 CK-MB (CK-2) 4.60 H Troponin I < 0.012 0.017 NT-Pro-B Natriuret Pep 4730 H 10/29/18 10/29/18 10/29/18 14:54 14:54 20:13 Creatine Kinase 21 L 25 L CK-MB (CK-2) 3.13 Troponin I 0.026 NT-Pro-B Natriuret Pep 10/29/18 10/30/18 10/30/18 20:13 13:01 13:01 Creatine Kinase 442 H CK-MB (CK-2) 2.35 2.30 Troponin I 0.025 0.086 NT-Pro-B Natriuret Pep 10/30/18 10/30/18 10/30/18 17:50 17:50 17:50 Creatine Kinase 470 H CK-MB (CK-2) 2.69 Troponin I 0.074 NT-Pro-B Natriuret Pep 42455 H 10/31/18 10/31/18 10/31/18 00:10 00:10 07:03 Creatine Kinase 428 H CK-MB (CK-2) 3.81 2.77 Troponin I 0.090 0.176 NT-Pro-B Natriuret Pep 10/31/18 10/31/18 10/31/18 07:03 07:03 12:36 Creatine Kinase 382 H CK-MB (CK-2) 2.21 Troponin I 0.256 NT-Pro-B Natriuret Pep 56114 H 10/31/18 10/31/18 10/31/18 12:36 18:35 18:35 Creatine Kinase 302 H 243 H CK-MB (CK-2) 1.76 Troponin I 0.359 NT-Pro-B Natriuret Pep Impressions: KUB X-Ray 10/31/18 05:59 IMPRESSION: NO RADIOGRAPHIC EVIDENCE FOR ACUTE ABDOMINAL DISEASE. LARGE AMOUNT OF STOOL CONSISTENT WITH CONSTIPATION. Renal Ultrasound 10/31/18 19:13 IMPRESSION: BILATERAL RENAL CORTICAL CYSTS. NO HYDRONEPHROSIS. Chest X-Ray 11/04/18 06:00 IMPRESSION: STABLE APPEARANCE OF THE CHEST. Assessment & Plan - Diagnosis (1) Acute kidney injury Plan: Currently she is slowly increasing her urine output which is encouraging. Creatinine is dropped to 1.9 from previous 2.6. Would continue current lines of management. I believe that this patient is going to turn around to the point that she could go back to the [facility]. Hospice has been consulted and awaiting further evaluations and recommendations. Obviously they have agreed to the fact that she is not for any heroic or invasive measures which includes dialysis as well. (2) UTI (urinary tract infection) Qualifiers: Urinary tract infection type: acute cystitis Is this a current diagnosis for this admission?: Yes Plan: On antibiotics. (3) Acute congestive heart failure Qualifiers: Heart failure type: unspecified Qualified Code(s): I50.9 - Heart failure, unspecified Is this a current diagnosis for this admission?: Yes Plan: Stable. Obviously she had been over diuresed which led her to TITA as well. Currently being gently hydrated. No signs of cardiac decompensation. (4) Constipation Qualifiers: Constipation type: unspecified constipation type Qualified Code(s): K59.00 - Constipation, unspecified Is this a current diagnosis for this admission?: Yes Plan: Has had some response to conservative measures. (5) Do not resuscitate Is this a current diagnosis for this admission?: Yes Plan: Status quo. (6) Parkinson's disease dementia Qualifiers: Dementia behavioral disturbance: without behavioral disturbance Qualified Code(s): G20 - Parkinson's disease; F02.80 - Dementia in other diseases classified elsewhere without behavioral disturbance Is this a current diagnosis for this admission?: Yes Plan: End-stage with severe contractures and dementia and immobility. Very poor prognosis. (7) Sepsis Qualifiers: Sepsis type: sepsis due to unspecified organism Qualified Code(s): A41.9 - Sepsis, unspecified organism Is this a current diagnosis for this admission?: Yes Plan: Improving and now currently hemodynamically stable. Off all pressors.
--- NOTE | 2018-11-04 13:11 | PDOC PROGRESS REPORT ---
Subjective Progress Note for:: 11/04/18 Subjective:: No significant event overnight. Family is leaning toward comfort care. Reason For Visit: ACUTE RESPIRATORY FAILURE WITH HYPOXIA Physical Exam Vital Signs: Temp Pulse Resp BP Pulse Ox 97.9 F 87 16 142/101 H 97 11/04/18 08:00 11/04/18 10:00 11/04/18 10:00 11/04/18 10:00 11/04/18 10:00 Intake & Output 11/03/18 11/04/18 11/05/18 06:59 06:59 06:59 Intake Total 533 1780 902 Output Total 765 1175 300 Balance -232 605 602 Weight 69.7 kg 65.4 kg General appearance: PRESENT: no acute distress Neck exam: ABSENT: carotid bruit, JVD, lymphadenopathy, thyromegaly Respiratory exam: PRESENT: clear to auscultation alina. ABSENT: rales, rhonchi, wheezes Cardiovascular exam: PRESENT: RRR. ABSENT: diastolic murmur, rubs, systolic murmur Results Laboratory Results: 11/04/18 04:14 11/04/18 04:14 11/04/18 11/04/18 11/04/18 04:14 04:14 04:46 WBC 6.5 RBC 3.82 Hgb 11.8 L Hct 34.3 L MCV 90 MCH 30.9 MCHC 34.3 RDW 13.7 Plt Count 205 Seg Neutrophils % 84.2 H Lymphocytes % 9.7 L Monocytes % 5.8 Eosinophils % 0.1 Basophils % 0.2 Absolute Neutrophils 5.4 Absolute Lymphocytes 0.6 Absolute Monocytes 0.4 Absolute Eosinophils 0.0 Absolute Basophils 0.0 Carbonic Acid 1.54 H HCO3/H2CO3 Ratio 21:1 ABG pH 7.44 ABG pCO2 51.3 H ABG pO2 75.5 L ABG HCO3 33.8 H ABG O2 Saturation 95.4 ABG Base Excess 8.2 FiO2 30% Sodium 149.9 H Potassium 3.4 L Chloride 107 Carbon Dioxide 35 H Anion Gap 8 BUN 92 H Creatinine 1.93 H Est GFR ( Amer) 30 L Est GFR (Non-Af Amer) 25 L Glucose 163 H Calcium 9.7 Magnesium 2.7 H 11/02/18 01:20 Catheterized Urine Urine Culture - Final 5,000 col/ml 10/29/18 10/29/18 10/29/18 02:19 08:23 08:23 Creatine Kinase 33 CK-MB (CK-2) 4.60 H Troponin I < 0.012 0.017 NT-Pro-B Natriuret Pep 4730 H 10/29/18 10/29/18 10/29/18 14:54 14:54 20:13 Creatine Kinase 21 L 25 L CK-MB (CK-2) 3.13 Troponin I 0.026 NT-Pro-B Natriuret Pep 10/29/18 10/30/18 10/30/18 20:13 13:01 13:01 Creatine Kinase 442 H CK-MB (CK-2) 2.35 2.30 Troponin I 0.025 0.086 NT-Pro-B Natriuret Pep 10/30/18 10/30/18 10/30/18 17:50 17:50 17:50 Creatine Kinase 470 H CK-MB (CK-2) 2.69 Troponin I 0.074 NT-Pro-B Natriuret Pep 38383 H 10/31/18 10/31/18 10/31/18 00:10 00:10 07:03 Creatine Kinase 428 H CK-MB (CK-2) 3.81 2.77 Troponin I 0.090 0.176 NT-Pro-B Natriuret Pep 10/31/18 10/31/18 10/31/18 07:03 07:03 12:36 Creatine Kinase 382 H CK-MB (CK-2) 2.21 Troponin I 0.256 NT-Pro-B Natriuret Pep 74292 H 10/31/18 10/31/18 10/31/18 12:36 18:35 18:35 Creatine Kinase 302 H 243 H CK-MB (CK-2) 1.76 Troponin I 0.359 NT-Pro-B Natriuret Pep Impressions: KUB X-Ray 10/31/18 05:59 IMPRESSION: NO RADIOGRAPHIC EVIDENCE FOR ACUTE ABDOMINAL DISEASE. LARGE AMOUNT OF STOOL CONSISTENT WITH CONSTIPATION. Renal Ultrasound 10/31/18 19:13 IMPRESSION: BILATERAL RENAL CORTICAL CYSTS. NO HYDRONEPHROSIS. Chest X-Ray 11/04/18 06:00 IMPRESSION: STABLE APPEARANCE OF THE CHEST. Assessment and Plan - Diagnosis (1) Acute hypoxemic respiratory failure Is this a current diagnosis for this admission?: Yes Plan: Continue current regimen (2) Acute kidney injury Is this a current diagnosis for this admission?: Yes Plan: Patient has been evaluated by Dr. Fatima title supervisor and he stated that patient is not a candidate for renal replacement therapy. Initially patient was about to transfer to [facility] for dialysis but the daughter who is the POA declined. (3) Complicated UTI (urinary tract infection) Is this a current diagnosis for this admission?: Yes Plan: Patient has been on ceftriaxone. (4) Acute CHF Qualifiers: Heart failure type: diastolic Qualified Code(s): I50.31 - Acute diastolic (congestive) heart failure Is this a current diagnosis for this admission?: Yes Plan: Patient has been diuresed aggressively. (5) Parkinsons disease Is this a current diagnosis for this admission?: Yes Plan: Continue his home medication (6) Hyperkalemia Is this a current diagnosis for this admission?: Yes Plan: Has resolved
[2018-11-04] MEDS: LEVALBUTEROL HCL NEB 0.63 MG/3 ML AMPUL NEB PRN (14:21)
--- NOTE | 2018-11-04 15:09 | PDOC PROGRESS REPORT ---
Subjective Progress Note for:: 11/04/18 Subjective:: Patient currently resting on bipap Reason For Visit: ACUTE RESPIRATORY FAILURE WITH HYPOXIA Physical Exam Vital Signs: Temp Pulse Resp BP Pulse Ox 97.7 F 103 H 21 H 157/79 H 100 11/04/18 12:00 11/04/18 14:21 11/04/18 14:21 11/04/18 12:00 11/04/18 14:21 Intake & Output 11/03/18 11/04/18 11/05/18 06:59 06:59 06:59 Intake Total 533 1780 1113 Output Total 765 1175 400 Balance -232 605 713 Weight 69.7 kg 65.4 kg Head exam: PRESENT: atraumatic, normocephalic Eye exam: PRESENT: conjunctiva pink, EOMI, PERRLA. ABSENT: scleral icterus Ear exam: PRESENT: normal external ear exam Mouth exam: PRESENT: moist, tongue midline Neck exam: ABSENT: carotid bruit, JVD, lymphadenopathy, thyromegaly Respiratory exam: PRESENT: rhonchi. ABSENT: clear to auscultation alina, rales, wheezes Cardiovascular exam: PRESENT: RRR. ABSENT: diastolic murmur, rubs, systolic murmur Pulses: PRESENT: normal dorsalis pedis pul Vascular exam: PRESENT: normal capillary refill GI/Abdominal exam: PRESENT: normal bowel sounds, soft. ABSENT: distended, guarding, mass, organolmegaly, rebound, tenderness Rectal exam: PRESENT: deferred Extremities exam: PRESENT: full ROM. ABSENT: calf tenderness, clubbing, pedal edema Neurological exam: PRESENT: CN II-XII grossly intact. ABSENT: awake, motor sensory deficit Psychiatric exam: PRESENT: normal mood. ABSENT: homicidal ideation, suicidal ideation Skin exam: PRESENT: dry, intact, warm. ABSENT: cyanosis, rash Results Laboratory Results: 11/04/18 04:14 11/04/18 04:14 11/04/18 11/04/18 11/04/18 04:14 04:14 04:46 WBC 6.5 RBC 3.82 Hgb 11.8 L Hct 34.3 L MCV 90 MCH 30.9 MCHC 34.3 RDW 13.7 Plt Count 205 Seg Neutrophils % 84.2 H Lymphocytes % 9.7 L Monocytes % 5.8 Eosinophils % 0.1 Basophils % 0.2 Absolute Neutrophils 5.4 Absolute Lymphocytes 0.6 Absolute Monocytes 0.4 Absolute Eosinophils 0.0 Absolute Basophils 0.0 Carbonic Acid 1.54 H HCO3/H2CO3 Ratio 21:1 ABG pH 7.44 ABG pCO2 51.3 H ABG pO2 75.5 L ABG HCO3 33.8 H ABG O2 Saturation 95.4 ABG Base Excess 8.2 FiO2 30% Sodium 149.9 H Potassium 3.4 L Chloride 107 Carbon Dioxide 35 H Anion Gap 8 BUN 92 H Creatinine 1.93 H Est GFR ( Amer) 30 L Est GFR (Non-Af Amer) 25 L Glucose 163 H Calcium 9.7 Magnesium 2.7 H 11/02/18 01:20 Catheterized Urine Urine Culture - Final 5,000 col/ml 10/29/18 10/29/18 10/29/18 02:19 08:23 08:23 Creatine Kinase 33 CK-MB (CK-2) 4.60 H Troponin I < 0.012 0.017 NT-Pro-B Natriuret Pep 4730 H 10/29/18 10/29/18 10/29/18 14:54 14:54 20:13 Creatine Kinase 21 L 25 L CK-MB (CK-2) 3.13 Troponin I 0.026 NT-Pro-B Natriuret Pep 10/29/18 10/30/18 10/30/18 20:13 13:01 13:01 Creatine Kinase 442 H CK-MB (CK-2) 2.35 2.30 Troponin I 0.025 0.086 NT-Pro-B Natriuret Pep 10/30/18 10/30/18 10/30/18 17:50 17:50 17:50 Creatine Kinase 470 H CK-MB (CK-2) 2.69 Troponin I 0.074 NT-Pro-B Natriuret Pep 78543 H 10/31/18 10/31/18 10/31/18 00:10 00:10 07:03 Creatine Kinase 428 H CK-MB (CK-2) 3.81 2.77 Troponin I 0.090 0.176 NT-Pro-B Natriuret Pep 10/31/18 10/31/18 10/31/18 07:03 07:03 12:36 Creatine Kinase 382 H CK-MB (CK-2) 2.21 Troponin I 0.256 NT-Pro-B Natriuret Pep 74940 H 10/31/18 10/31/18 10/31/18 12:36 18:35 18:35 Creatine Kinase 302 H 243 H CK-MB (CK-2) 1.76 Troponin I 0.359 NT-Pro-B Natriuret Pep Impressions: KUB X-Ray 10/31/18 05:59 IMPRESSION: NO RADIOGRAPHIC EVIDENCE FOR ACUTE ABDOMINAL DISEASE. LARGE AMOUNT OF STOOL CONSISTENT WITH CONSTIPATION. Renal Ultrasound 10/31/18 19:13 IMPRESSION: BILATERAL RENAL CORTICAL CYSTS. NO HYDRONEPHROSIS. Chest X-Ray 11/04/18 06:00 IMPRESSION: STABLE APPEARANCE OF THE CHEST. Assessment & Plan - Diagnosis (1) Acute congestive heart failure Qualifiers: Heart failure type: unspecified Qualified Code(s): I50.9 - Heart failure, unspecified Is this a current diagnosis for this admission?: Yes Plan: Patient underwent echocardiogram report views were not optimal (2) Acute respiratory failure with hypoxia and hypercapnia Is this a current diagnosis for this admission?: Yes Plan: NIPPV is essentially unchanged overall prognosis is very poor (3) Cardiogenic shock Is this a current diagnosis for this admission?: Yes Plan: Overloaded intermittent use of vasopressors (4) Sepsis Qualifiers: Sepsis type: sepsis due to unspecified organism Qualified Code(s): A41.9 - Sepsis, unspecified organism Is this a current diagnosis for this admission?: Yes Plan: Pyuria culture is not positive yet - Time Total Critical Time (Minutes): 45 Inpatient Scribe Statement - . Entered by Ivy Joseph, acting as scribe for Dr. Khalil.
[2018-11-04] MEDS: LATANOPROST 0.005% OPH SOLN 2.5 ML OU SCH (22:33)
[2018-11-05] MEDS: HYDROCORTISONE SOD SUCCINATE INJ/PF 100 MG/2 ML SDV IV SCH ×3 (05:31→21:22)
[2018-11-05] MEDS: METOCLOPRAMIDE HCL INJ/PF 10 MG/2 ML SDV IV SCH ×4 (08:38→21:22)
[2018-11-05] MEDS: FAMOTIDINE 20 MG TABLET PEG SCH (10:57)
[2018-11-05] MEDS: MAGNESIUM OXIDE 400 MG TABLET PEG SCH ×3 (10:57→17:12)
[2018-11-05] MEDS: CHOLECALCIFEROL (D3) 1,000 UNIT TABLET PEG SCH (10:57)
[2018-11-05] MEDS: POLYETHYLENE GLYCOL 3350 POWDER 17 GM/1 PACKET PEG SCH (10:57)
[2018-11-05] MEDS: DOCUSATE SODIUM 100 MG/10 ML UDC PEG SCH (10:57)
[2018-11-05] MEDS: CYANOCOBALAMIN (VITAMIN B-12) 1,000 MCG TABLET PEG SCH (10:57)
[2018-11-05] MEDS: ASCORBIC ACID 500 MG TABLET PEG SCH (10:57)
[2018-11-05] MEDS: ENOXAPARIN SODIUM INJ 30 MG/0.3 ML DISP.SYRIN SUBCUT SCH (10:58)
--- NOTE | 2018-11-05 12:24 | PDOC PROGRESS REPORT ---
Subjective Progress Note for:: 11/05/18 Subjective:: Assumed care today. Reviewed notes and ICU course. This is an 87 yr old female with multiple comorbidities including advanced dementia and Parkinson's who was admitted due to acute respiratory failure and sepsis and fluid overload. She went into acute renal failure and septic shock but eventually dialysis was deferred after further discussions with previous providers and family. No acute event overnight. Patient remains on BIPAP. She is very minimally responsive to painful stimuli which is her reported baseline. Discussed in great length with patient's 2 daughters including DPOA on bedside. Answered questions and discussed plan of care. Discussed hospice and options of comfort measures if need arises. Both daughters are amenable to transitioning her to hospice. Home hospice is not feasible for them. Will see how she does off the BIPAP and decide about inpatient hospice vs going to another SNF under hospice. Both expressed they don't want her to go back to [facility]. Reason For Visit: ACUTE RESPIRATORY FAILURE WITH HYPOXIA Physical Exam Vital Signs: Temp Pulse Resp BP Pulse Ox 97.5 F 100 18 158/85 H 92 11/05/18 07:52 11/05/18 09:58 11/05/18 09:58 11/05/18 07:52 11/05/18 09:58 Intake & Output 11/04/18 11/05/18 11/06/18 06:59 06:59 06:59 Intake Total 1780 1163 Output Total 1175 400 Balance 605 763 Weight 144 lb 2.917 oz 150 lb 12.739 oz General appearance: PRESENT: no acute distress Head exam: PRESENT: atraumatic, normocephalic Eye exam: PRESENT: conjunctiva pink, EOMI, PERRLA. ABSENT: scleral icterus Ear exam: PRESENT: normal external ear exam Mouth exam: PRESENT: moist, tongue midline Neck exam: ABSENT: carotid bruit, JVD, lymphadenopathy, thyromegaly Respiratory exam: PRESENT: clear to auscultation alina. ABSENT: rales, rhonchi, wheezes Cardiovascular exam: PRESENT: RRR. ABSENT: diastolic murmur, rubs, systolic murmur Pulses: PRESENT: normal dorsalis pedis pul GI/Abdominal exam: PRESENT: normal bowel sounds, soft. ABSENT: distended, guarding, mass, organolmegaly, rebound, tenderness Rectal exam: PRESENT: deferred Neurological exam: PRESENT: other - only minimally respsonsive to painful stimuli. ABSENT: oriented to person, oriented to place, oriented to time, oriented to situation Results Laboratory Results: 11/04/18 04:14 11/04/18 04:14 11/05/18 05:35 Magnesium 2.5 H 11/02/18 01:20 Catheterized Urine Urine Culture - Final 5,000 col/ml 10/29/18 10/29/18 10/29/18 02:19 08:23 08:23 Creatine Kinase 33 CK-MB (CK-2) 4.60 H Troponin I < 0.012 0.017 NT-Pro-B Natriuret Pep 4730 H 10/29/18 10/29/18 10/29/18 14:54 14:54 20:13 Creatine Kinase 21 L 25 L CK-MB (CK-2) 3.13 Troponin I 0.026 NT-Pro-B Natriuret Pep 10/29/18 10/30/18 10/30/18 20:13 13:01 13:01 Creatine Kinase 442 H CK-MB (CK-2) 2.35 2.30 Troponin I 0.025 0.086 NT-Pro-B Natriuret Pep 10/30/18 10/30/18 10/30/18 17:50 17:50 17:50 Creatine Kinase 470 H CK-MB (CK-2) 2.69 Troponin I 0.074 NT-Pro-B Natriuret Pep 50481 H 10/31/18 10/31/18 10/31/18 00:10 00:10 07:03 Creatine Kinase 428 H CK-MB (CK-2) 3.81 2.77 Troponin I 0.090 0.176 NT-Pro-B Natriuret Pep 10/31/18 10/31/18 10/31/18 07:03 07:03 12:36 Creatine Kinase 382 H CK-MB (CK-2) 2.21 Troponin I 0.256 NT-Pro-B Natriuret Pep 16225 H 10/31/18 10/31/18 10/31/18 12:36 18:35 18:35 Creatine Kinase 302 H 243 H CK-MB (CK-2) 1.76 Troponin I 0.359 NT-Pro-B Natriuret Pep Impressions: KUB X-Ray 10/31/18 05:59 IMPRESSION: NO RADIOGRAPHIC EVIDENCE FOR ACUTE ABDOMINAL DISEASE. LARGE AMOUNT OF STOOL CONSISTENT WITH CONSTIPATION. Renal Ultrasound 10/31/18 19:13 IMPRESSION: BILATERAL RENAL CORTICAL CYSTS. NO HYDRONEPHROSIS. Chest X-Ray 11/04/18 06:00 IMPRESSION: STABLE APPEARANCE OF THE CHEST. Assessment and Plan - Diagnosis (1) Acute hypoxemic respiratory failure Is this a current diagnosis for this admission?: Yes Plan: On BIPAP. Switch to nasal cannula. (2) Acute renal failure Is this a current diagnosis for this admission?: Yes Plan: Creatinine slightly improved. (3) Pyelonephritis Is this a current diagnosis for this admission?: Yes Plan: Competed antibiotics. (4) Dementia Is this a current diagnosis for this admission?: Yes (5) Parkinson disease Is this a current diagnosis for this admission?: Yes (6) Acute congestive heart failure Qualifiers: Heart failure type: unspecified Qualified Code(s): I50.9 - Heart failure, unspecified Is this a current diagnosis for this admission?: Yes (7) Sepsis Qualifiers: Sepsis type: sepsis due to unspecified organism Qualified Code(s): A41.9 - Sepsis, unspecified organism Is this a current diagnosis for this admission?: Yes Plan: Secondary to pyelonephritis. Completed antibiotics. - Time Time Spent with patient: 35 or more minutes
--- NOTE | 2018-11-05 12:25 | ADVANCED CARE ---
- Diagnosis (1) Acute hypoxemic respiratory failure Diagnosis Current: Yes (2) Acute renal failure Diagnosis Current: Yes (3) Pyelonephritis Diagnosis Current: Yes (4) Dementia Diagnosis Current: Yes (5) Parkinson disease Diagnosis Current: Yes (6) Acute congestive heart failure Diagnosis Current: Yes (7) Sepsis Diagnosis Current: Yes Resuscitation Status: Do Not Resuscitate Discussion: Discussed in great length with patient's 2 daughters including DPOA on bedside. Answered questions and discussed plan of care. Discussed hospice and options of comfort measures if need arises. Both daughters are amenable to transitioning h er to hospice. Home hospice is not feasible for them. Will see how she does off the BIPAP and decide about inpatient hospice vs going to another SNF under hospice. She remains DNR/DNI. Both expressed they don't want her to go back to [facility].
[2018-11-05] MEDS: MULTIVITS W-MIN/IRON SOLN 60 ML PEG SCH (13:29)
[2018-11-05] MEDS: LATANOPROST 0.005% OPH SOLN 2.5 ML OU SCH (21:22)
[2018-11-06] MEDS: HYDROCORTISONE SOD SUCCINATE INJ/PF 100 MG/2 ML SDV IV SCH ×2 (06:10→15:09)
[2018-11-06] MEDS: ASCORBIC ACID 500 MG TABLET PEG SCH (10:34)
[2018-11-06] MEDS: METOCLOPRAMIDE HCL INJ/PF 10 MG/2 ML SDV IV SCH ×2 (10:34→15:09)
[2018-11-06] MEDS: DOCUSATE SODIUM 100 MG/10 ML UDC PEG SCH (10:34)
[2018-11-06] MEDS: MAGNESIUM OXIDE 400 MG TABLET PEG SCH (10:34)
[2018-11-06] MEDS: FAMOTIDINE 20 MG TABLET PEG SCH (10:34)
[2018-11-06] MEDS: POLYETHYLENE GLYCOL 3350 POWDER 17 GM/1 PACKET PEG SCH (10:35)
[2018-11-06] MEDS: CYANOCOBALAMIN (VITAMIN B-12) 1,000 MCG TABLET PEG SCH (10:35)
[2018-11-06] MEDS: CHOLECALCIFEROL (D3) 1,000 UNIT TABLET PEG SCH (10:35)
[2018-11-06] MEDS: ENOXAPARIN SODIUM INJ 30 MG/0.3 ML DISP.SYRIN SUBCUT SCH (10:35)
[2018-11-06] MEDS: MULTIVITS W-MIN/IRON SOLN 60 ML PEG SCH (10:37)
[2018-11-06 12:40] VITALS: BP 176/73
--- NOTE | 2018-11-06 13:35 | PDOC TRANSFER SUMMARY ---
General - Admit/Disc Date/PCP Admission Date/Primary Care Provider: 10/29/18 03:56 ANJEL CANNON MD Discharge Date: 11/06/18 - Discharge Diagnosis (1) Acute hypoxemic respiratory failure Is this a current diagnosis for this admission?: Yes (2) Acute renal failure Is this a current diagnosis for this admission?: Yes (3) Pyelonephritis Is this a current diagnosis for this admission?: Yes (4) Dementia Is this a current diagnosis for this admission?: Yes (5) Parkinson disease Is this a current diagnosis for this admission?: Yes (6) Acute congestive heart failure Is this a current diagnosis for this admission?: Yes (7) Sepsis Is this a current diagnosis for this admission?: Yes - Additional Information Resuscitation Status: Do Not Resuscitate Discharge Diet: Tube Feeding (Comments) Discharge Activity: Activity As Tolerated Home Medications: Acetaminophen [Pediacare Fever Infrastructure Developer] 650 mg PEG Q6HP PRN 06/24/18 Ascorbic Acid [Vitamin C] 1,000 mg PEG DAILY 06/24/18 Cholecalciferol (Vitamin D3) [Vitamin D3 1000 Unit Tablet] 1,000 unit PEG DAILY 06/24/18 Cranberry Extract [Cranberry 250 mg Tablet] 250 mg PEG BID 06/24/18 Cyanocobalamin (Vitamin B-12) [Vitamin B-12 1000 mcg Tablet] 1,000 mcg PEG DAILY 06/24/18 Docusate Sodium [Colace Udc 100 mg/10 ml Oral Soln] 100 mg PEG DAILY 06/24/18 Eyelid Cleanser Combination 3 [Ocusoft Lid Scrub Plus] 1 applic OU QAM 06/24/18 Famotidine [Pepcid] 20 mg PEG DAILY 06/24/18 Ipratropium/Albuterol Sulfate [Duoneb 3 ml Ampul] 3 ml NEB Q8HP PRN 06/24/18 Latanoprost/Pf [Latanoprost 0.005% Eye Drop] 1 drop OD QHS 06/24/18 Magnesium Hydroxide [Milk of Magnesia 30 ml Udcup] 30 ml PEG DAILYP PRN 06/24/18 Magnesium Oxide [Magox] 400 mg PEG BID 06/24/18 Multivitamin [My Favorite Multiple] 30 ml PEG QAM 06/24/18 Pot Chl 10% Danielle 20meq/15ml 10 ml PEG DAILY 06/24/18 Psyllium Husk (with Sugar) [Metamucil Packet] 3.4 gm PEG BID 06/24/18 Clotrimazole/Betamethasone Dip [Lotrisone Cream 15 gm] 1 applic TOP BID tube 06/30/18 Albuterol Sulfate [Ventolin 0.083% Neb 2.5 mg/3 mL Ampul] 1 vial NEB Q6HP PRN 10/29/18 Polyvinyl Alcohol [Liquitears 1.4% Ophth Soln 15 ml] 1 drop OU Q8 10/29/18 History of Present Illness Admission Date/PCP: 10/29/18 03:56 ANJEL CANNON MD Patient complains of: SOB History of Present Illness: Admitting hospitalist's H&P: RADHA MENA is a 87 year old female who presented from the [facility] via EMS on the corporate statistical financial analyst of admission. She was found and by staff dyspneic and struggling to breathe. When EMS arrived patient was started having O2 sat in the 70s and a initiated [id number] resuscitation in route to the hospital. 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 In the emergency room she was found to be hypoxic and possibly hypercapnic. She was started on BiPAP with excellent response. Chest x-ray did not reveal significant clinical changes per report. BNP was elevated. Patient was subsequently admitted to hospital for further evaluation and treatment. Hospital Course Hospital Course: This is an 87 y.o. F with a PMH HLD, bronchitis, Parkinsons, DM type 2, from [facility] presented to [facility] ED for SOB and dyspnea requiring BIPAP. Elevated BNP to 4730. UA was (+) for UTI - turbid appearance with large leuk esterase. The patient was given Rocephin in ED, switched to Vancomycin and Zosyn once inpatient. BNP elevated to >4000. Cardiomegaly and pulmonary vascular congestion on CXR. According to family, the patient has no history of CHF. Echocardiogram obtained. Unfortunately the images are poor quality. LVEF is determined to be normal. Patient was treated with IVF and antibiotics for her UTI/sepsis. Her BNP continued to rise, peaking at 18,000. Patient began sh owing signs of volume overload -periorbital edema, coarse lung sounds, trace edema in the hips and thighs. As a result, her maintenance IVF was discontinued and the patient was subsequently treated with Lasix to help alleviate her volume overload. Unfortunately, the patient did not adequately diurese. In fact, her weight has remained 63 kg throughout her hospitalization. Her creatinine upon arrival was 0.3. Over the course of 48 hours her creatinine has acutely risen to 2.3. She remains hypervolemic and is becoming more and more oliguric. Her physical assessment has not changed. She remains on BIPAP. Eyes closed, nonverbal, bedbound, lower extremities contracted. Lungs are coarse to aus cultation. The patient does not appear to be in distress, she is breathing comfortably on the BIPAP. Her tidal volumes are low and minute ventilation is only 3. Pulses are faint in the upper and lower extremities. Clumps of pus are seen in the Ly catheter tubing. Discussed treatment options with the family. They expressed an interest in dialysis. Despite the patient being a DNR/DNI, they wish to pursue all other medical treatment possible. Nephrology is, unfortunately, unavailable over the weekends at [facility]. Discussed the patient's case with Dr. Pelayo of [facility], who graciously accepted the patient. Plan to obtain renal ultrasound while patient is waiting for transfer to [facility]. 11/01: Plans was made to transfer the patient to [facility] however when the transport team arrived they found the patient to be too unstable to transport. They requested the patient to be intubated and that she be started on pressor agents. The patient had been started on AVAPS prior to the arrival of the transport team to help support her oxygenation. Her blood pressure was 84 systolic upon their arrival and they initiated a Levophed drip. As per Dr. Shagufta abreu's note he had discussed at length with the family the need for intubation if they wish to have their loved one transferred. The patient's medical power of technical business analyst was very adamant that she did not want to be intubated or ventilated and that this was not going to be something would be done during her hospital course. They did agree to being transferred to the ICU for the continued use of pressor agents and they did agree to continued use of advanced airway pressure support therapy. Exam showed the patient to be significantly tachypneic with very poor air movem ent. She was also noted to be mildly tachycardic and to have significantly diminished peripheral pulses. Patient was subsequently transferred to the ICU for further treatment. In the ICU the patient was placed on a Tashi-Synephrine infusion to provide blood pressure support and she was also continued on her AVAPS with an increased respiratory rate of 20. The charge nurse in ICU to the transport to see how we could facilitate patient's transfer. They had stated they may be able to answer the patient to [facility] however he would like to know what to do if the patient codes in route to [facility], patient is DNR and DNI. Also contacted [facility] and they stated the transfer is being canceled that has to be reinitiated if the patient needs to be transferred. Had a very lengthy discussion with 2 of her daughters whom is the POA updated them about patient's critical status and possible course of actions. One course of action would be to reinitiate transfer to [facility] but the patient might need to be intubated en route to [facility] if she becomes too critical but family did not want intubation under any circumstances. Other course of action would be to keep the patient here in ICU on BiPAP, pressors and consult nephrology corporate statistical financial analyst tomorrow possible urgent hemodialysis, while the patient fully understands that the patient is very critical and may not make it till tomorrow. Family would like to pursue the second option, to mention if she is not a candidate for hemodialysis and is still too critical they will go ahead and change her CODE STATUS to REFINER OPERATOR. Currently off of Tashi-Synephrine with MAP>60; however she is becoming more hypoxic, hypercapnic and tachypneic. 11/02: No significant changes. Patient still very distressed. Renal function is worsening and mild improvement of hypoxia however very tachypneic. SBP 77055, T-max 97.3 pulse 54716, RR 1834, SP 11/05: Assumed care today. Reviewed notes and ICU course. This is an 87 yr old female with multiple comorbidities including advanced dementia and Parkinson's who was admitted due to acute respiratory failure and sepsis and fluid overload. She went into acute renal failure and septic shock but eventually dialysis was deferred after further discussions with previous providers and family. No acute event overnight. Patient remains on BIPAP. She is very minimally responsive to painful stimuli which is her reported baseline. Discussed in great length with patient's 2 daughters including DPOA on bedside. Answered questions and discussed plan of care. Discussed hospice and options of comfort measures if need arises. Both daughters are amenable to transitioning her to hospice. Home hospice is not feasible for them. Will see how she does off the BIPAP and decide about inpatient hospice vs going to another SNF under hospice. Both expressed they don't want her to go back to [facility]. 11/06: Patient will be going to inpatient hospice. Physical Exam Vital Signs: Temp Pulse Resp BP Pulse Ox 98.5 F 104 H 19 142/78 H 94 11/05/18 20:00 11/05/18 20:00 11/05/18 20:00 11/05/18 20:00 11/06/18 07:37 Intake & Output 11/05/18 11/06/18 11/07/18 06:59 06:59 06:59 Intake Total 1163 Output Total 400 1750 Balance 763 -1750 Weight 150 lb 12.739 oz 151 lb 10.848 oz General appearance: PRESENT: no acute distress Head exam: PRESENT: atraumatic, normocephalic Eye exam: PRESENT: conjunctiva pink, EOMI, PERRLA. ABSENT: scleral icterus Ear exam: PRESENT: normal external ear exam Mouth exam: PRESENT: moist, tongue midline Neck exam: ABSENT: carotid bruit, JVD, lymphadenopathy, thyromegaly Respiratory exam: PRESENT: clear to auscultation alina. ABSENT: rales, rhonchi, wheezes Cardiovascular exam: PRESENT: RRR. ABSENT: diastolic murmur, rubs, systolic murmur Pulses: PRESENT: normal dorsalis pedis pul GI/Abdominal exam: PRESENT: normal bowel sounds, soft. ABSENT: distended, guarding, mass, organolmegaly, rebound, tenderness Rectal exam: PRESENT: deferred Neurological exam: PRESENT: altered, CN II-XII grossly intact. ABSENT: oriented to person, oriented to place, oriented to time, motor sensory deficit Results Laboratory Results: 11/04/18 04:14 11/04/18 04:14 11/06/18 07:59 Magnesium 2.3 10/29/18 10/29/18 10/29/18 02:19 08:23 08:23 Creatine Kinase 33 CK-MB (CK-2) 4.60 H Troponin I < 0.012 0.017 NT-Pro-B Natriuret Pep 4730 H 10/29/18 10/29/18 10/29/18 14:54 14:54 20:13 Creatine Kinase 21 L 25 L CK-MB (CK-2) 3.13 Troponin I 0.026 NT-Pro-B Natriuret Pep 10/29/18 10/30/18 10/30/18 20:13 13:01 13:01 Creatine Kinase 442 H CK-MB (CK-2) 2.35 2.30 Troponin I 0.025 0.086 NT-Pro-B Natriuret Pep 10/30/18 10/30/18 10/30/18 17:50 17:50 17:50 Creatine Kinase 470 H CK-MB (CK-2) 2.69 Troponin I 0.074 NT-Pro-B Natriuret Pep 21705 H 10/31/18 10/31/18 10/31/18 00:10 00:10 07:03 Creatine Kinase 428 H CK-MB (CK-2) 3.81 2.77 Troponin I 0.090 0.176 NT-Pro-B Natriuret Pep 10/31/18 10/31/18 10/31/18 07:03 07:03 12:36 Creatine Kinase 382 H CK-MB (CK-2) 2.21 Troponin I 0.256 NT-Pro-B Natriuret Pep 24882 H 10/31/18 10/31/18 10/31/18 12:36 18:35 18:35 Creatine Kinase 302 H 243 H CK-MB (CK-2) 1.76 Troponin I 0.359 NT-Pro-B Natriuret Pep Impressions: KUB X-Ray 10/31/18 05:59 IMPRESSION: NO RADIOGRAPHIC EVIDENCE FOR ACUTE ABDOMINAL DISEASE. LARGE AMOUNT OF STOOL CONSISTENT WITH CONSTIPATION. Renal Ultrasound 10/31/18 19:13 IMPRESSION: BILATERAL RENAL CORTICAL CYSTS. NO HYDRONEPHROSIS. Chest X-Ray 11/04/18 06:00 IMPRESSION: STABLE APPEARANCE OF THE CHEST.
== END 2018-11-06 15:50 | disposition hospice, inpatient (51) | DRG 871 ==
LOC: ER 02:04 → EH 03:56 → 4N 05:30 → ICU 11-01 02:15 → 4S 11-04 16:35
PROVIDERS: ADMIT Emergency Medicine; ATTEND Emergency Medicine
DX: A41.9 Sepsis, unspecified organism (principal); J96.01 Acute respiratory failure with hypoxia; J96.02 Acute respiratory failure with hypercapnia; I50.21 Acute systolic (congestive) heart failure; R57.0 Cardiogenic shock; N39.0 Urinary tract infection, site not specified; N17.9 Acute kidney failure, unspecified; E83.41 Hypermagnesemia; E87.5 Hyperkalemia; H40.9 Unspecified glaucoma; E78.00 Pure hypercholesterolemia, unspecified; E11.8 Type 2 diabetes mellitus with unspecified complications; R34 Anuria and oliguria; B96.20 Unspecified Escherichia coli [E. coli] as the cause of diseases classified elsewhere; B96.1 Klebsiella pneumoniae [K. pneumoniae] as the cause of diseases classified elsewhere; B96.4 Proteus (mirabilis) (morganii) as the cause of diseases classified elsewhere; K59.00 Constipation, unspecified; G20 Parkinson's disease; F02.80 Dementia in other diseases classified elsewhere, unspecified severity, without behavioral disturbance, psychotic disturbance, mood disturbance, and anxiety; E66.9 Obesity, unspecified; Z16.12 Extended spectrum beta lactamase (ESBL) resistance; Z66 Do not resuscitate; Z68.27 Body mass index [BMI] 27.0-27.9, adult
CPT/HCPCS: 36415; 36600; 51702; 71045; 74018; 76775; 80048; 80053; 80202; 81001; 82550; 82553; 82803; 82962; 83605; 83735; 83880; 84100; 84132; 84439; 84443; 84481; 84484; 85025; 87040; 87086; 87088; 87186; 93005; 93010; 93306; 94660; 99291; J0610; J0696; J1650; J1720; J1815; J1940; J2370; J2543; J2765; J3370; J3480; J3490; J7030; J7050; J7060; J7614; J7620